=== PATIENT | male | born 1940 | race Caucasian/White ===

== ENCOUNTER 2018-07-13 09:18 | Outpatient (CLI) | payer MEDICARE, SELFPAY ==
[2018-07-13 11:11] LABS: HCT 46.3 % (40.0-50.0); HGB 15.5 g/dL (13.5-17.5); Mean Corp. HGB Concentration 33.5 g/dL (32.0-36.0); Mean Corpuscular Hemoglobin 31.6 pg (27.0-33.0); Mean Corpuscular Volume 94.5 fL (80-95); Mean Platelet Volume 12.2 fL (8.0-11.0); Platelet Count 182 x1000/uL (130-400); RBC Distribution Width 13.4 % (11.8-14.1); White Blood Cell Count 7.55 k/cumm (4.4-10.8)
[2018-07-13 15:15] LABS: ALT 45 U/L (12-78); AST 36 U/L (15-37); Albumin 4.2 g/dL (3.4-5.0); Alkaline Phosphatase 61 U/L (46-116); Anion Gap 10.5 mmol/L (3-11); BUN 24 mg/dL (7-18); Bilirubin, Total 1.2 mg/dL (0.2-1.0); CO2 29.5 mmol/L (21.0-32.0); CREATININE 1.69 mg/dL (0.70-1.30); Calcium 9.3 mg/dL (8.5-10.1); Chloride 103 mmol/L (98-107); Cholesterol 122 mg/dL (50-200); Estimated GFR 39.76 (mL/min/1.73m2); Glucose 62 mg/dL (70-100); HDL Cholesterol 37 mg/dL (40-60); LDL CHOLESTEROL 62 mg/dL (<100); Potassium 4.1 mmol/L (3.5-5.1); Sodium 143 mmol/L (136-145); Total Protein 7.6 g/dL (6.4-8.2); Triglyceride 142 mg/dL (30-150); Vitamin B12 334 pg/mL (193-986)
[2018-07-14 09:36] LABS: PSA, Screening 0.4 ng/ml (0-6.5)
== END 2018-07-13 09:38 ==
PROVIDERS: PCP Family Medicine; Visit Provider Family Medicine
DX: I10 Essential (primary) hypertension (principal); E78.5 Hyperlipidemia, unspecified; R35.1 Nocturia; Z12.5 Encounter for screening for malignant neoplasm of prostate
CPT/HCPCS: 36415; 80053; 80061; 83721; 84153; 85027; 82607

== ENCOUNTER 2019-01-09 01:50 | Outpatient (CLI) | payer MEDICARE, SELFPAY ==
[2019-01-09 07:57] LABS: Abs Immature Grans 0.02 k/cumm (0.0-0.09); Absolute Basophil Count 0.02 k/cumm (0.0-0.2); Absolute Eosinophil Count 0.13 k/cumm (0.0-0.7); Absolute Lymphocyte Count 1.61 k/cumm (1.2-3.4); Basophils % 0.3; Eosinophils % 1.8; HCT 47.9 % (40.0-50.0); HGB 16.2 g/dL (13.5-17.5); Immature Grans % 0.3; Lymphocytes % 22.4; Mean Corp. HGB Concentration 33.8 g/dL (32.0-36.0); Mean Corpuscular Volume 94.5 fL (80-95); Mean Platelet Volume 10.6 fL (8.0-11.0); Monocytes % 12.5; Neutrophils % 62.7; Platelet Count 187 x1000/uL (130-400); RBC 5.07 m/cumm (4.50-6.00); RBC Distribution Width 13.7 % (11.8-14.1); White Blood Cell Count 7.18 k/cumm (4.4-10.8)
[2019-01-09 08:31] LABS: Bilirubin Negative (Negative); Blood Negative (Negative); Clarity Clear; Glucose Negative (Negative); Ketones Negative (Negative); Leukocyte Esterase Trace (Negative); Nitrite Negative (Negative); Specific Gravity 1.015 (1.005-1.025); Urobilinogen 0.2 EU/dL (Up TO 0.2)
[2019-01-09 08:57] LABS: ALT 46 U/L (12-78); AST 44 U/L (15-37); Albumin 4.3 g/dL (3.4-5.0); Alkaline Phosphatase 70 U/L (46-116); Anion Gap 11.9 mmol/L (3-11); BUN 24 mg/dL (7-18); Bilirubin, Total 1.3 mg/dL (0.2-1.0); CO2 30.1 mmol/L (21.0-32.0); CREATININE 1.59 mg/dL (0.70-1.30); Calcium 9.5 mg/dL (8.5-10.1); Chloride 101 mmol/L (98-107); Estimated GFR 42.54 (mL/min/1.73m2); Glucose 53 mg/dL (70-100); Potassium 3.9 mmol/L (3.5-5.1); Sodium 143 mmol/L (136-145); TSH 3.65 uIU/mL (0.358-3.74); Total Protein 7.8 g/dL (6.4-8.2)
[2019-01-09 09:10] LABS: Bacteria Negative HPF (Negative); C & S Indicated? No; Casts Negative LPF (Negative); Crystals Negative HPF (Negative); Epithelial Cells Negative HPF (Negative); Mucus Negative (Negative); RBC 0-2 (0-2)
== END 2019-01-09 02:10 ==
PROVIDERS: PCP Family Medicine; Visit Provider Family Medicine
DX: R53.83 Other fatigue (principal); I10 Essential (primary) hypertension; I48.91 Unspecified atrial fibrillation; K59.00 Constipation, unspecified
CPT/HCPCS: 80053; 81003; 81015; 84443; 85025

== ENCOUNTER 2019-03-06 09:34 | Outpatient (CLI) | payer MEDICARE, SELFPAY ==
--- NOTE | 2019-03-06 13:14 | DI.CT_ITS ---
SYMPTOMS/DIAGNOSIS: FALL ONTO HEAD, ON ELIQUIS, FALL, W19.XXXA CRANIAL CT: Noncontrast cranial CT was performed. There is moderate generalized cerebral atrophy and there are mild patchy areas of decreased attenuation in periventricular white matter bilaterally consistent with microvascular ischemic changes. No evidence of acute intracranial hemorrhage, mass effect or midline shift. There is a question of dilatation of the A 1 segment of anterior cerebral artery vs posterior communicating artery on the left. The findings may just represent tortuous mildly ectatic vessels but aneurysm is not excluded. Correlation with CT Angiography recommended for further evaluation. The orbital and temporal bone structures appear intact. No evidence of acute intracranial hemorrhage, mass effect or midline shift. CONCLUSION: No evidence of acute process. Question left sided [place] of [place] aneurysm, correlation with CTA requested as described above.
--- NOTE | 2019-03-06 13:16 | DI.RAD_ITS ---
SYMPTOMS/DIAGNOSIS: RT HIP PAIN SINCE FALL, ACUTE PAIN, M25.551, W19.XXXA RIGHT HIP AND PELVIS: Three views were obtained. There are mild degenerative changes of both hips. No evidence of acute fracture or dislocation.
== END 2019-03-06 09:54 ==
PROVIDERS: PCP Family Medicine; Visit Provider Nurse Practitioner Family
DX: M25.551 Pain in right hip; W01.0XXA Fall on same level from slipping, tripping and stumbling without subsequent striking against object, initial encounter; Z79.01 Long term (current) use of anticoagulants; R93.0 Abnormal findings on diagnostic imaging of skull and head, not elsewhere classified
CPT/HCPCS: 70450; 73502

== ENCOUNTER 2019-03-07 07:16 | Outpatient (CLI) | payer MEDICARE, SELFPAY ==
[2019-03-07] MEDS: Omnipaque 350 MG/ML 100 ML BTL IJ (08:53)
--- NOTE | 2019-03-07 09:02 | DI.CT_ITS ---
SYMPTOMS/DIAGNOSIS: ABNL HEAD CT, ? ANEURYSM, R93.0 CT ANGIOGRAPHY OF THE HEAD: CT angiography was performed with multi slice acquisition and multi planar and 3D reconstruction. Comparison is made with noncontrast head CT performed the previous day. The basilar artery is tortuous. The distal vertebral arteries are unremarkable. There is no evidence of aneurysm of the left anterior cerebral artery. There is no evidence of occlusion or significant stenosis. IMPRESSION: Mildly tortuous vessels. No evidence of aneurysm or significant stenosis.
== END 2019-03-07 07:36 ==
PROVIDERS: PCP Family Medicine; Visit Provider Family Medicine
DX: R93.0 Abnormal findings on diagnostic imaging of skull and head, not elsewhere classified (principal)
CPT/HCPCS: 70496; J3490

== ENCOUNTER 2019-05-09 07:00 | Outpatient (CLI) | payer MEDICARE, SELFPAY ==
[2019-05-09 13:21] LABS: ALT 42 U/L (16-63); AST 52 U/L (15-37); Albumin 4.1 g/dL (3.4-5.0); Alkaline Phosphatase 89 U/L (46-116); Anion Gap 10.1 mmol/L (3-11); BUN 24 mg/dL (7-18); Bilirubin, Direct 0.28 mg/dL (0.00-0.20); Bilirubin, Total 1.2 mg/dL (0.2-1.0); CO2 29.9 mmol/L (21.0-32.0); CREATININE 2.01 mg/dL (0.70-1.30); Calcium 9.1 mg/dL (8.5-10.1); Chloride 101 mmol/L (98-107); Estimated GFR 32.46 (mL/min/1.73m2); Glucose 51 mg/dL (70-100); Potassium 4.1 mmol/L (3.5-5.1); Sodium 141 mmol/L (136-145); Total Protein 7.4 g/dL (6.4-8.2)
[2019-05-09 13:39] LABS: ESR 8 mm/hr (1-20)
== END 2019-05-09 07:20 ==
PROVIDERS: PCP Family Medicine; Visit Provider Family Medicine
DX: R63.4 Abnormal weight loss (principal); E80.6 Other disorders of bilirubin metabolism
CPT/HCPCS: 36415; 80053; 85652; 82248

== ENCOUNTER 2019-05-24 01:44 | Outpatient (CLI) | payer MEDICARE, SELFPAY ==
--- NOTE | 2019-05-24 07:45 | DI.CT_ITS ---
EXAM: CT ABDOMEN PELVIS WO CLINICAL HISTORY: wt loss,fatigue,hyperbilirubinemia,transaminases,r63.4 TECHNIQUE: Images were performed from the lung bases through the ischial tuberosities without IV and after oral contrast. Exam is mildly limited by respiratory motion. COMPARISON: ABD PELVIS WO CONTRAST from 03/02/2016 RENAL ULTRASOUND(P) from 04/11/2017 XR hip RT complete AP pelvis from 03/06/2019 FINDINGS: The lung bases are clear. The heart is mildly enlarged. There is a small cyst in the liver. There is no biliary dilatation. The gallbladder, spleen, pancreas and adrenals are unremarkable. Multiple bilateral renal cysts are again noted, the largest in the midportion of the right kidney which measu res 13.5 cm. No suspicious masses or hydronephrosis is seen. There are nonobstructing stones at the lower poles of both kidneys, right greater than left. The prostate is mildly enlarged and shows wesley cification. The bladder is unremarkable. There is no bowel dilatation or inflammatory change. Ther e is no gross evidence of a mass. There is no evidence of adenopathy or ascites. The aorta is vitaly l in diameter and is tortuous distally. Iliac arteries are tortuous. There are subacute fractures o f the right inferior and superior pubic rami and right sacral ala. No lower thoracic or lumbar fractu res are seen. IMPRESSION: Subacute fractures of the right superior and inferior pubic rami and right sacrum. Bilateral renal cysts and nonobstructing bilateral renal calculi.
[2019-05-24] MEDS: Omnipaque 350 MG/ML 50 ML BTL PO (07:57)
[2019-05-24] MEDS: Breeza Beverage 473 ML BTL PO (07:58)
== END 2019-05-24 02:04 ==
PROVIDERS: PCP Family Medicine; Visit Provider Family Medicine
DX: R63.4 Abnormal weight loss (principal); R53.83 Other fatigue; N28.1 Cyst of kidney, acquired; N20.0 Calculus of kidney; S32.511A Fracture of superior rim of right pubis, initial encounter for closed fracture; S32.19XA Other fracture of sacrum, initial encounter for closed fracture
CPT/HCPCS: 74176; Q9967

== ENCOUNTER 2019-05-25 00:49 | Outpatient (CLI) | payer MEDICARE, SELFPAY ==
[2019-05-28 11:21] LABS: PSA, Screening 0.5 ng/ml (0-6.5)
[2019-05-28 13:27] LABS: Albumin 60.6 % (55.8-66.1); Total Protein 7.6 g/dl (6.3-8.2)
== END 2019-05-25 01:09 ==
PROVIDERS: PCP Family Medicine; Visit Provider Family Medicine
DX: R55 Syncope and collapse (principal); N40.0 Benign prostatic hyperplasia without lower urinary tract symptoms; Z12.5 Encounter for screening for malignant neoplasm of prostate
CPT/HCPCS: 36415; 84153; 84165

== ENCOUNTER → 2019-06-26 09:18 | Outpatient (BNVA) | payer MEDICARE, SELFPAY | PROVIDERS: PCP Family Medicine; Referring Provider Family Medicine; Visit Provider Student in an Organized Health Care Education/Training Program | DX: S32.10XA Unspecified fracture of sacrum, initial encounter for closed fracture (principal); S32.2XXA Fracture of coccyx, initial encounter for closed fracture; W08.XXXA Fall from other furniture, initial encounter; G20 Parkinson's disease | CPT/HCPCS: 99203 ==

== ENCOUNTER 2020-01-14 22:01 | Outpatient (REF) | payer MEDICARE, SELFPAY ==
[2020-01-14 21:49] LABS: HGB 15.3 g/dL (13.5-17.5); Mean Corpuscular Hemoglobin 32.5 pg (27.0-33.0); Mean Corpuscular Volume 95.5 fL (80-95); Mean Platelet Volume 11.6 fL (8.0-11.0); Platelet Count 177 x1000/uL (130-400); RBC 4.71 m/cumm (4.50-6.00); RBC Distribution Width 12.9 % (11.8-14.1); White Blood Cell Count 8.12 k/cumm (4.4-10.8)
[2020-01-14 22:08] LABS: ALT 37 U/L (16-63); AST 32 U/L (15-37); Albumin 4.3 g/dL (3.4-5.0); Alkaline Phosphatase 59 U/L (46-116); Anion Gap 6.7 mmol/L (3-11); BUN 25 mg/dL (7-18); Bilirubin, Total 1.3 mg/dL (0.2-1.0); CO2 32.3 mmol/L (21.0-32.0); CREATININE 1.55 mg/dL (0.70-1.30); Calcium 9.6 mg/dL (8.5-10.1); Calculated LDL 59 mg/dL (<100); Chloride 104 mmol/L (98-107); Cholesterol 119 mg/dL (<200); Glucose 56 mg/dL (74-106); HDL Cholesterol 37 mg/dL (40-60); Potassium 4.1 mmol/L (3.5-5.1); Sodium 143 mmol/L (136-145); Total Protein 7.5 g/dL (6.4-8.2); Triglyceride 115 mg/dL (<150)
== END 2020-01-14 22:21 ==
LOC: LBN 22:01
PROVIDERS: PCP Family Medicine; Visit Provider Family Medicine
DX: I10 Essential (primary) hypertension (principal); I48.0 Paroxysmal atrial fibrillation; G20 Parkinson's disease
CPT/HCPCS: 80053; 80061; 85027

== ENCOUNTER 2020-03-11 01:06 | Outpatient (CLI) | payer MEDICARE, SELFPAY ==
--- NOTE | 2020-03-11 08:28 | DI.CT_ITS ---
EXAM: CT HEAD WO CLINICAL HISTORY: x 07/2019: severe random top/occipital JORDAN,BLURRED VISION,R51. TECHNIQUE: Imaging Protocol: Axial computed tomography images with coronal and sagittal reformatted images were created and reviewed COMPARISON: No exams were available for comparison FINDINGS: Ventricles and Extra axial spaces: Normal in size and morphology for the patient's age. Hemorrhage: None. Cerebral parenchyma: Atrophy. White matter changes consistent with small vessel disease. Midline shift: None. Brainstem/Cerebellum: Normal. Calvarium: Normal. Visualized Paranasal sinuses/Mastoids: Small mucous retention cyst or polyp in the left maxillary sin us.. IMPRESSION: No acute abnormality. RADIATION DOSE DELIVERED: 805.01mGy.cm Total DLP 805.01mGy.cm Total DLP DATA REPOSITORY: All CT scans at this facility are submitted to the National Radiology Data Registry (NRDR) Dose Index Registry (DIR) with the [employer] (ACR). RADIATION OPTIMIZATION: All CT scans at this facility use at least one of these dose optimization te chniques: automated exposure control; mA and/or kV adjustment per patient size (includes targeted exa ms where dose is matched to clinical indication); or iterative reconstruction.
== END 2020-03-11 01:26 ==
PROVIDERS: PCP Family Medicine; Visit Provider Family Medicine
DX: R51 Headache (principal); H53.8 Other visual disturbances
CPT/HCPCS: 70450

== ENCOUNTER → 2020-04-11 10:05 | Outpatient (BNVA) | payer MEDICARE, SELFPAY | PROVIDERS: PCP Family Medicine; Referring Provider Family Medicine; Visit Provider Internal Medicine Cardiovascular Disease | DX: I48.0 Paroxysmal atrial fibrillation (principal); I12.9 Hypertensive chronic kidney disease with stage 1 through stage 4 chronic kidney disease, or unspecified chronic kidney disease; N18.3 Chronic kidney disease, stage 3 (moderate); G20 Parkinson's disease | CPT/HCPCS: 99204; 99215 ==

== ENCOUNTER 2020-04-24 14:57 | Emergency (ER) | payer MEDICARE, SELFPAY ==
[2020-04-24] VITALS (48 sets, daily range): BP systolic 133–179; BP diastolic 86–133; PULSE 59–140; RESP 16–46; TEMP 36.6–37; O2SAT 94–98
--- NOTE | 2020-04-24 14:45 | DI.CT_ITS ---
EXAM: CT HEAD CERVICAL SPINE WO CLINICAL HISTORY: Fall, on blood thinners, r/o fracture, bleed. TECHNIQUE: Imaging Protocol: Axial computed tomography images with coronal and sagittal reformatted images were created and reviewed COMPARISON: CT CT HEAD WO from 03/11/2020 FINDINGS: Head CT Ventricles and Extra axial spaces: Normal in size and morphology for the patient's age. Hemorrhage: None. Cerebral parenchyma: Stable atrophy and white matter changes of microvascular disease. Midline shift: None. Brainstem/Cerebellum: Normal. Calvarium: Normal. Visualized Paranasal sinuses/Mastoids: Mucous retention cyst versus polyp in the left maxillary sinus . Mucosal thickening of the left ethmoid air cells. Cervical Spine CT BONES: Vertebral body heights are maintained. Alignment is normal. There is a nondisplaced fracture o f the C5 spinous process. No additional acute fractures are seen. There is an apparent old fracture of the C7 spinous process. Degenerative disc changes and facet degenerative changes are seen . SOFT TISSUES: No paraspinal hematoma. The airway appears intact. No pneumothorax is seen at the lung apices. IMPRESSION: Head CT: No acute abnormality. C-spine CT: Nondisplaced fracture of the C5 spinous process. Degenerative changes. Incidental RADIATION DOSE DELIVERED: LINK-TO-SR Total DLP DATA REPOSITORY: All CT scans at this facility are submitted to the National Radiology Data Registry (NRDR) Dose Index Registry (DIR) with the [employer] (ACR). RADIATION OPTIMIZATION: All CT scans at this facility use at least one of these dose optimization te chniques: automated exposure control; mA and/or kV adjustment per patient size (includes targeted exa ms where dose is matched to clinical indication); or iterative reconstruction.
--- NOTE | 2020-04-24 14:59 | ED.GENADUL_ITS ---
Discharge Plan Disposition Patient Disposition: HOME Condition: Stable Discharge Details Clinical Impression: Fall, Head injury, C5 cervical fracture Primary Care Provider: Flavia Kuo ED Provider: Bernard Miller Home Meds and New Rx's Prescriptions: Continued verapamil 180 mg tablet extended release 180 mg PO DAILY Qty: 30 RF: 3 atorvastatin 40 mg tablet 40 mg PO DAILY Qty: 90 RF: 4 carbidopa-levodopa [Sinemet] 25-100 mg tablet 1 tab PO TID RF: 0 hydrochlorothiazide 12.5 mg tablet 12.5 mg PO DAILY Qty: 30 RF: 2 Ocuvite with Lutein 1 EACH tablet 1 ea PO DAILY RF: 0 nitroglycerin 0.4 mg tablet, sublingual 0.4 mg SL Q5M MDD 3 tabs PRN (Reason: chest pain) Qty: 30 RF: 1 Eliquis 5 mg tablet 5 mg PO BID Qty: 60 RF: 11 docusate sodium [Colace] 100 mg capsule 100 mg PO TID Qty: 180 RF: 0 Discharge Instructions Instructions: Head Injury (ED), Cervical Fracture (ED) Additional Instructions: At this time your work-up in the ER revealed a stable, nondisplaced, cervical 5 fracture. Wear the soft collar until your reevaluated by orthopedics, I have placed you on their list and I would like you to reach out to their office tomorrow. [id number] Tylenol as directed for discomfort. Cool and/or warm compresses every 2 hours for 20 minutes. Please watch for new or worsening symptoms and return to the ER for any concerns. Referrals: Marko Butler MD [ [facility] STAFF PHYSICIAN] - Discharge Data Discharge Date/Time-TO BE ENTERED AT DEPARTURE: 04/24/20 20:19 Medical Decision Making <Leti Holcomb - Last Filed: 04/25/20 08:10> 79-year-old male presents with dizziness and inability to raise arms after a fall prior to arrival while raking leaves. Patient was seen at [facility] and was sent over here for further evaluation. He does have a history of Parkinson's disease, atrial fibrillation and is on blood thinners he does take apixaban 5 mg twice a day. Recommendation is for a head CT and neck to rule out hemorrhage and fracture. He does have some cervical radiculopathy. Patient fell forward hitting his glasses he does have a superficial abrasion noted to the left side of his nose. He is only able to abduct his arms bilaterally approximately 45 degrees. He denies having any pain at this time. He is alert and oriented x4. Gross motor is intact to all other extremities. PMhx includes osteoarthritis, hypertension, chronic kidney disease stage III, Parkinson, peripheral neuropathy, hypoglycemia. Initial exam patient is alert and oriented x4 c-collar was placed by staffing analyst on arrival to the department. Patient states that he became dizzy and fell forward hitting his head. He reports some mild soreness to the back of his neck denies any headache or blurry vision. Denies loss of consciousness. Due to patient being on anticoagulants will order head CT and neck CT to rule out fracture or hemorrhage. Cardiac work-up ordered due to dizziness and fall and history of coronary artery disease. Care is to be handed off to oncoming provider ANTONI Hightower pending CT results and labs. <ANTONI Talamantes - Last Filed: 04/24/20 20:42> I received signout this pleasant 79-year-old gentleman from my colleague TIMUR Holcomb. Please see her full HPI and examination. In brief, patient is a DNR, DNI, was outside using a leaf blower this afternoon, became tired and dizzy and fell forward striking his head. Because of the dizziness, which has resolved completely, a cardiac work-up was initiated. C-collar placed upon arrival. CT of head and neck obtained, patient is anticoagulated. On my evaluation patient resting comfortably. He does have an abrasion across his nose, tetanus status checked, last given in 2013, will update now. He is currently pleasant and has no real concerns except that the c-collar is making his neck is sore. Laboratory values reveal a white blood cell count of 12.87 hemoglobin 15.5 hematocrit 45.3 platelet count 211. INR 1.1. Sodium 137 potassium 3.4, creatinine 1.38, GFR 49.96. Glucose 6.7. Initial troponin less than 0.01. TSH 1.78. Patient given a amp of glucose as well as 1 L IV fluid. Urinalysis shows trace blood otherwise unremarkable. It was brought to my attention that the patient's blood pressure was trending upward. On the potline monitor he now appears to have a rhythm in the 120s and 30s. Repeat EKG obtained. Please see official EKG by Dr. Castellon. Appears to be a sinus or ectopic atrial tachycardia, ventricular of 125. Patient with a history of known A. fib, does take diltiazem. Was planning to give a dose of IV diltiazem however this rhythm broke without intervention and per potline monitor was in A. fib with a ventricular rate 80s. CT of head read by radiology as no acute intracranial abnormality. CT of C- spine read as a nondisplaced fracture of the left C5 spinous process. Per radiology verbally, this is stable. Given patient was not complaining of any true neck discomfort and had a C5 fracture, I do believe obtaining a CT of his chest, abdomen, pelvis is reasonable. He did go from a ventricular rate in the 80s up to the 130s without really any stimulus. I did discuss this with Dr. Castellon. CT imaging of chest, abdomen, pelvis reveals no acute findings of the chest, abdomen and pelvis left nonobstructing renal calculi. Bilateral hypoattenuating renal lesions, all lesions are stable since the previous examination. I discussed the C [address] Castellon. The fracture is nondisplaced, stable, and patient is neurologically intact. [place] as though placing a soft collar and outpatient orthopedic follow-up was appropriate. Soft collar in place. Patient was placed on the orthopedic list. I was able to speak with the patient's [id number] on the phone. Discussed patient's work-up, repeat troponin is pending. We discussed the cervical fracture, soft collar, and overall disposition. Patient states that he would rather go home if at all possible. She feels as though the patient is safe to go home in his current condition, has Parkinson's, does have multiple falls in general. Blood pressure has trended down nicely while the patient is here. While he is awaiting the repeat troponin patient was trial ambulated throughout the ER, given p.o. food and liquids. He was able to tolerate p.o. without difficulty. He ambulated steadily without assistance. Patient feels well and continues to wish to be discharged. Repeat troponin remains less than 0.05. Patient understands to wear his c-collar, will contact the orthopedic group tomorrow for prompt outpatient reevaluation. He was encouraged to return to the ER for new or worsening symptoms. At time of discharge patient has no additional questions or concerns. Medical Records Medical records reviewed: Yes I reviewed the patient's medical records. Lab Data Lab results reviewed: Yes I reviewed the patient's lab results. Lab results narrative: Laboratory Tests Range/Units 04/24/20 04/24/20 04/24/20 15:25 15:25 15:25 WBC (4.4-10.8) 10^3/uL 12.87 H RBC (4.36-5.78) 10^6/uL 4.78 Hgb (13.5-17.5) g/dL 15.5 Hct (40.0-50.0) % 45.3 MCV (80-95) fL 94.8 MCH (27.0-33.0) pg 32.4 MCHC (32.0-36.0) % 34.2 RDW (11.8-14.1) % 12.9 Plt Count (130-400) 10^3/uL 211 MPV (8.0-11.0) fL 10.1 Immature Gran % 0.4 Neutrophils % 85.3 Lymphocytes % 6.8 Monocytes % 7.1 Eosinophils % 0.2 Basophils % 0.2 Nucleated RBC % % 0 Absolute Neutrophils (1.2-6.7) 10^3/uL 10.98 H Absolute Lymphocytes (1.2-3.4) 10^3/uL 0.88 L Absolute Monocytes (0.1-0.8) 10^3/uL 0.91 H Absolute Eosinophils (0.0-0.7) 10^3/uL 0.03 Absolute Basophils (0.0-0.2) 10^3/uL 0.03 PT (9.3-11.0) sec 11.1 H INR (0.9-1.1) 1.1 Sodium (136-145) mmol/L 137 Potassium (3.5-5.1) mmol/L 3.4 L Chloride (98-107) mmol/L 101 Carbon Dioxide (21.0-32.0) mmol/L 27.8 Anion Gap (3-11) mmol/L 8.2 BUN (7-18) mg/dL 21 H Creatinine (0.70-1.30) mg/dL 1.38 H Estimated GFR/1.73 m2 (mL/min/1.73m2) 49.96 Glucose (74-106) mg/dL 67 L Calcium (8.5-10.1) mg/dL 9.6 Magnesium (1.8-2.4) mg/dL 2.2 Total Bilirubin (0.2-1.0) mg/dL 1.0 AST (15-37) U/L 40 H ALT (16-63) U/L 20 Alkaline Phosphatase (46-116) U/L 96 Troponin I (<0.06) ng/mL < 0.05 Total Protein (6.4-8.2) g/dL 7.8 Albumin (3.4-5.0) g/dL 4.3 TSH (0.36-3.74) uIU/mL Urine Color (Yellow) Urine Clarity (Clear) Urine pH (5-8) Ur Specific [place] (1.005-1.025) Urine Protein (Negative) mg/dL Urine Ketones (Negative) mg/dL Urine Blood (Negative) Urine Nitrite (Negative) Urine Bilirubin (Negative) Urine Urobilinogen (Up TO 0.2) EU/dL Ur Leukocyte Esterase (Negative) Urine RBC (0-2) HPF Urine WBC (0-5) HPF Ur Epithelial Cells (Negative) HPF Urine Crystals (Negative) HPF Urine Bacteria (Negative) HPF Urine Casts (Negative) LPF Urine Mucus (Negative) Urine Other (Negative) Ur Culture Indicated? Urine Glucose (Negative) mg/dL Range/Units 04/24/20 04/24/20 04/24/20 17:00 17:07 18:50 WBC (4.4-10.8) 10^3/uL RBC (4.36-5.78) 10^6/uL Hgb (13.5-17.5) g/dL Hct (40.0-50.0) % MCV (80-95) fL MCH (27.0-33.0) pg MCHC (32.0-36.0) % RDW (11.8-14.1) % Plt Count (130-400) 10^3/uL MPV (8.0-11.0) fL Immature Gran % Neutrophils % Lymphocytes % Monocytes % Eosinophils % Basophils % Nucleated RBC % % Absolute Neutrophils (1.2-6.7) 10^3/uL Absolute Lymphocytes (1.2-3.4) 10^3/uL Absolute Monocytes (0.1-0.8) 10^3/uL Absolute Eosinophils (0.0-0.7) 10^3/uL Absolute Basophils (0.0-0.2) 10^3/uL PT (9.3-11.0) sec INR (0.9-1.1) Sodium (136-145) mmol/L Potassium (3.5-5.1) mmol/L Chloride (98-107) mmol/L Carbon Dioxide (21.0-32.0) mmol/L Anion Gap (3-11) mmol/L BUN (7-18) mg/dL Creatinine (0.70-1.30) mg/dL Estimated GFR/1.73 m2 (mL/min/1.73m2) Glucose (74-106) mg/dL Calcium (8.5-10.1) mg/dL Magnesium (1.8-2.4) mg/dL Total Bilirubin (0.2-1.0) mg/dL AST (15-37) U/L ALT (16-63) U/L Alkaline Phosphatase (46-116) U/L Troponin I (<0.06) ng/mL < 0.05 Total Protein (6.4-8.2) g/dL Albumin (3.4-5.0) g/dL TSH (0.36-3.74) uIU/mL 1.78 Urine Color (Yellow) Yellow Urine Clarity (Clear) Clear Urine pH (5-8) 7.0 Ur Specific [place] (1.005-1.025) 1.020 Urine Protein (Negative) mg/dL Negative Urine Ketones (Negative) mg/dL Negative Urine Blood (Negative) Trace-intact H Urine Nitrite (Negative) Negative Urine Bilirubin (Negative) Negative Urine Urobilinogen (Up TO 0.2) EU/dL 0.2 Ur Leukocyte Esterase (Negative) Negative Urine RBC (0-2) HPF Negative Urine WBC (0-5) HPF Negative Ur Epithelial Cells (Negative) HPF Negative Urine Crystals (Negative) HPF Negative Urine Bacteria (Negative) HPF Negative Urine Casts (Negative) LPF Negative Urine Mucus (Negative) Negative Urine Other (Negative) Negative Ur Culture Indicated? No Urine Glucose (Negative) mg/dL Negative ECG Data Attestation: I personally reviewed and interpreted this ECG (s) as follows: Interpretation: Please see official report by Dr. Castellon. Atrial fibrillation, ventricular rate of 83. HPI <Leti Holcomb - Last Filed: 04/25/20 08:10> General Mode of arrival: ambulatory . Date/Time Provider Initiated Documentation: 04/24/20 14:58 . Limitations to Documentation: no limitations . Information obtained by: patient and RN/MD . HPI Narrative: 79-year-old male presents with dizziness and inability to raise arms after a fall prior to arrival while raking leaves. Patient was seen at [facility] and was sent over here for further evaluation. He does have a history of Parkinson's disease, atrial fibrillation and is on blood thinners he does take apixaban 5 mg twice a day. Recommendation is for a head CT and neck to rule out hemorrhage and fracture. He does have some cervical radiculopathy. Patient fell forward hitting his glasses he does have a superficial abrasion noted to the left side of his nose. He is only able to abduct his arms bilaterally approximately 45 degrees. He denies having any pain at this time. He is alert and oriented x4. Gross motor is intact to all other extremities. PMhx includes osteoarthritis, hypertension, chronic kidney disease stage III, Parkinson, peripheral neuropathy, hypoglycemia. Related Data Home Medications Medication Instructions Recorded Confirmed Ocuvite with Lutein 1 ea PO DAILY 10/19/12 04/24/20 nitroglycerin 0.4 mg sublingual 0.4 mg SL Q5M PRN #30 tab MDD 3 07/20/19 04/24/20 tablet tabs atorvastatin 40 mg tablet 40 mg PO DAILY #90 tab-cap 01/14/20 04/24/20 verapamil 180 mg tablet,extended 180 mg PO DAILY #30 tab 01/14/20 04/24/20 release apixaban 5 mg tablet 5 mg PO BID #60 tab-cap 02/05/20 04/24/20 hydrochlorothiazide 12.5 mg tablet 12.5 mg PO DAILY #30 tab 02/13/20 04/24/20 carbidopa 25 mg-levodopa 100 mg 1 tab PO TID 03/17/20 04/24/20 tablet docusate sodium 100 mg capsule 100 mg PO TID #180 tab-cap 04/09/20 04/24/20 Previous Rx's Medication Instructions Recorded nitroglycerin 0.4 mg sublingual 0.4 mg SL Q5M PRN #30 tab MDD 3 07/20/19 tablet tabs atorvastatin 40 mg tablet 40 mg PO DAILY #90 tab-cap 01/14/20 verapamil 180 mg tablet,extended 180 mg PO DAILY #30 tab 01/14/20 release apixaban 5 mg tablet 5 mg PO BID #60 tab-cap 02/05/20 hydrochlorothiazide 12.5 mg tablet 12.5 mg PO DAILY #30 tab 02/13/20 docusate sodium 100 mg capsule 100 mg PO TID #180 tab-cap 04/09/20 Allergies Allergy/AdvReac Type Severity Reaction Status Date / Time No Known Allergies Allergy Verified 04/24/20 14:21 Review of Systems <Leti Holcomb - Last Filed: 04/25/20 08:10> Narrative: Constitutional: Negative for weight loss, alert and oriented, well groomed, normal body habitus, appears comfortable. HEENT: Denies headaches, blurry vision, nasal discharge, sore throat, trouble swallowing. Chest: Denies chest pain, palpitations, irregular rhythm, hypertension. Respiratory: Denies Shortness of breath, cough, hemoptysis. GI: Denies abdominal pain, nausea, vomiting, diarrhea, constipation. : Denies dysuria, hematuria, flank pain, rectal bleeding. Neuro: Denies dizziness, blurry vision, weakness, syncope, headache or facial numbness. He is unable to raise his arms above 45 degrees. He is on blood thinners did have a fall at around 1230 hitting his head and neck. Hematologic: Denies intolerance to heat or cold, hair loss. PFSH <Leti Holcomb - Last Filed: 04/25/20 08:10> Medical History CKD (chronic kidney disease), stage III (02/19/16) [facility] [place] 04-30-2016: / [place] 6 months DNI (do not intubate) DNR (do not resuscitate) Essential hypertension (04/24/13) Hearing loss Low back pain Nephrolithiasis (03/04/16) non obstructing - on abd/pelvic CT [id number]:asymptomatic : renal U/S: neprholithiasis/ stable cysts Obstructive sleep apnea (02/19/16) sleep study : pt no longer using CPAP Osteoarthritis Parkinsonism Paroxysmal atrial fibrillation (02/19/16) on chronic anticoagulation Peripheral neuropathy POLST (Physician Orders for Life-Sustaining Treatment) Family History Mother , age 83 Heart disease Father , age 83 Heart disease Social History Smoking/Tobacco Use Status: Never Alcohol Intake: current Alcohol Intake frequency: a few times a month Drug use: Never Substance use type: does not use Adopted: No Caregiver/Support person: No Household members: spouse Communication Needs: None Pets and animals: No Sexually active: No Do you think of yourself as: straight/heterosexual Current gender identity: male What is your relationship status?: refused to answer How often do you talk on the phone with friends or family?: decline to answer How often do you get together with friends or relatives?: decline to answer How often do you attend christianity or presybeterian services?: decline to answer Do you belong to any clubs or organized social groups?: decline to answer Panel score (0-1 are the most socially isolated patients): 0 What type of physical activity do you participate in: walking and decline to answer Duration: decline to answer Frequency: decline to answer Elyse/Rastafarian: Protestant Special elyse needs: No Seatbelt use: always Helmet use: Yes Helmet use: always Drive intox or ride w/intox entry driver operator: No Exam <Leti Holcomb - Last Filed: 04/25/20 08:10> Narrative Exam Narrative: Constitutional: Alert and oriented x3. Appears stated age. Normal body habitus. Patient placed in a c-collar upon arrival. Head: Normocephalic. He has a small abrasion superficial noted to the left side of his nose. Bleeding is controlled upon arrival. Eyes: Pupils PERRLA, Red reflex noted, EOM's intact. Eyelids symmetrical without lesions, discharge, or swelling. ENT: Bilateral TM's WNL, External ear normal to inspection, no mastoid TTP, swelling, or erythema, Nasal turbinates WNL, no nasal discharge. Normal dentition, Posterior pharynx WNL, no exudate. Chest: RRR, Normal S1, S2, distal pulses intact. Resp: Lungs clear to auscultation bilaterally, no wheezes, rales, or rhonchi. Musculoskeletal: Normal gait, 5/5 strength to all four extremities. Skin: No suspicious rashes or lesions. Capillary refill less than 2 sec. Neurologic: Cranial nerves II-XII intact. Alert and oriented x 3. DTR's intact. He is unable to raise his arms past 45 degrees on exam. He has mild amount of tremor noted to his upper and lower extremities. Hematologic/Lymphatic: No ecchymosis, no lymphadenopathy. Sign Out <Leti Holcomb - Last Filed: 04/25/20 08:10> Sign Out Data: Sign Out Comment: Pending Labs and CT result. Last updated by Leti Holcomb at 04/24/20 16:07
--- NOTE | 2020-04-24 15:15 | RT.EKG_ITS ---
APPROVED REPORT Exam: Resting ECG Patient Location: E HR:83 bpm ECG Measurements Heart Rate 83 AXIS SC [id number] P [id number] QRSd 94 QRS -35 QT 387 T 92 QTc 456 Conclusion Atrial fibrillation...? atrial activity Left axis deviation...QRS axis (-30,-90)
--- NOTE | 2020-04-24 15:15 | RT.EKG_ITS ---
APPROVED REPORT Exam: Resting ECG Patient Location: E HR:125 bpm ECG Measurements Heart Rate 125 AXIS [place] 137 P -85 QRSd 88 QRS -45 QT 340 T 99 QTc 491 Conclusion Sinus or ectopic atrial tachycardia...P axis (-45,135), rate> 99 Inferior infarct, old...Q >35mS, II III aVF Repol abnrm suggests ischemia, diffuse leads...ST-T neg, ant/lat/inf suspect flutter
[2020-04-24 15:33] LABS: Abs Immature Grans 0.05 10^3/uL (0.0-0.06); Absolute Basophil Count 0.03 10^3/uL (0.0-0.2); Absolute Eosinophil Count 0.03 10^3/uL (0.0-0.7); Absolute Lymphocyte Count 0.88 10^3/uL (1.2-3.4); Basophils % 0.2; Eosinophils % 0.2; HCT 45.3 % (40.0-50.0); HGB 15.5 g/dL (13.5-17.5); Immature Grans % 0.4; Lymphocytes % 6.8; MCH 32.4 pg (27.0-33.0); MCHC 34.2 % (32.0-36.0); MCV 94.8 fL (80-95); MPV 10.1 fL (8.0-11.0); Monocytes % 7.1; Neutrophils % 85.3; Nucleated RBC 0 %; Platelet Count 211 10^3/uL (130-400); RBC 4.78 10^6/uL (4.36-5.78); RDW 12.9 % (11.8-14.1); RDW-SD 45.1 fL; WBC 12.87 10^3/uL (4.4-10.8)
[2020-04-24 15:46] LABS: Absolute Monocyte Count 0.91 10^3/uL (0.1-0.8); Absolute Neutrophil Count 10.98 10^3/uL (1.2-6.7)
[2020-04-24 15:53] LABS: INR 1.1 (0.9-1.1); Prothrombin Time 11.1 sec (9.3-11.0)
[2020-04-24 16:04] LABS: ALT 20 U/L (16-63); AST 40 U/L (15-37); Albumin 4.3 g/dL (3.4-5.0); Alkaline Phosphatase 96 U/L (46-116); Anion Gap 8.2 mmol/L (3-11); BUN 21 mg/dL (7-18); CO2 27.8 mmol/L (21.0-32.0); CREATININE 1.38 mg/dL (0.70-1.30); Calcium 9.6 mg/dL (8.5-10.1); Chloride 101 mmol/L (98-107); Estimated GFR 49.96 (mL/min/1.73m2); Glucose 67 mg/dL (74-106); Magnesium 2.2 mg/dL (1.8-2.4); Potassium 3.4 mmol/L (3.5-5.1); Sodium 137 mmol/L (136-145); Total Protein 7.8 g/dL (6.4-8.2)
[2020-04-24 16:08] LABS: Troponin I < 0.05 ng/mL (<0.06)
--- NOTE | 2020-04-24 16:40 | DI.VRAD_ITS ---
Addendum created by Khadijah Gonzalez MD on 04/24/2020 4:41:06 PM EDT: THIS REPORT CONTAINS FINDINGS THAT MAY BE CRITICAL TO PATIENT CARE. The findings were verbally communicated by me via telephone conference with ANTONI Miller at 4:40 PM EDT on 04/24/2020. The findings were acknowledged and understood. Initial report created on 04/24/2020 4:40:43 PM EDT: PROCEDURE INFORMATION: Exam: CT Head Without Contrast Exam date and time: 04/24/2020 3:59 PM Age: 79 years old Clinical indication: Injury or trauma; Blunt trauma (contusions or hematomas); Patient HX: Fall, on thinners; Additional info: R/O fracture/bleed TECHNIQUE: Imaging protocol: Computed tomography of the head without contrast. COMPARISON: CT HEAD WO 03/11/2020 8:27 AM FINDINGS: Brain: No intracranial hemorrhage. Moderate periventricular and subcortical white matter hypoattenuation, nonspecific but consistent with chronic microvascular ischemic disease. No mass or midline. No extra-axial collections. Normal rutherford-white differentiation. No large acute territorial infarct. Cerebral ventricles: The ventricles are normal in position and mildly enlarged. There is commensurate cortical sulcal prominence. The findings are consistent with age appropriate cerebral atrophy. No hydrocephalus. Bones/joints: No acute fracture. No focal osseous lesions. Paranasal sinuses: Mucous retention cyst or polyp in the LEFT maxillary sinus. Mucoperiosteal thickening LEFT posterior ethmoid air cells. No air-fluid levels. Mastoid air cells: The tympanomastoid air cells are normally aerated as visualized. Orbits: The [place] lenses are absent. The orbits are otherwise unremarkable as visualized. Vasculature: Intracranial arterial calcification is present. Soft tissues: The soft tissues are unremarkable. IMPRESSION: 1. No acute intracranial abnormality. 2. Additional incidental/nonemergent findings as discussed above. 3. No significant interval change. PROCEDURE INFORMATION: Exam: CT Cervical Spine Without Contrast Exam date and time: 04/24/2020 3:59 PM Age: 79 years old Clinical indication: Injury or trauma; Blunt trauma (contusions or hematomas); Patient HX: Fall, on thinners; Additional info: R/O fracture/bleed TECHNIQUE: Imaging protocol: Computed tomography images of the cervical spine without contrast. COMPARISON: CT HEAD WO 03/11/2020 8:27 AM FINDINGS: Vertebrae: There is preservation of the cervical lordosis. There is minimal anterolisthesis of C7 upon T1. There is mild levoscoliosis of the lower cervical spine. There is a nondisplaced fracture of the C5 spinous process (series 14, image 36 and series 11, image 40). Well corticated os ossific density posterior to the C7 spinous represents result of remote avulsion fracture versus degenerative change. The vertebrae are normal in height. Discs/Spinal canal/Neural foramina: Multilevel degenerative changes from C3-C4 through C6-C7. Disc-osteophyte complexes, uncovertebral spurring, arthropathy are multiple levels, resulting mild LEFT foraminal stenosis at C2-C3, moderate bilateral foraminal stenosis-C4, C4-C5, C5-C6, and C6-C7. No significant central canal stenosis. Soft tissues: Soft tissues are unremarkable. Thyroid: Thyroid gland unremarkable as visualized. Lungs: Lung apices unremarkable. Vasculature: Calcification of the carotid arteries. IMPRESSION: 1. Nondisplaced fracture of LEFT C5 spinous process. 2. Multilevel degenerative of the cervical spine foraminal stenosis as discussed. Dictated and Authenticated by: Khadijah Gonazlez MD. Ordering:ANT Landeros MD
--- NOTE | 2020-04-24 16:45 | DI.CT_ITS ---
EXAM: CT CHEST/ABD/PEL W CLINICAL HISTORY: trauma, fall, now afib, htn, c5 fx. TECHNIQUE: Imaging Protocol: Axial computed tomography images with coronal and sagittal reformatted images were created and reviewed CONTRAST MATERIAL: Intravenous: Omnipaque 350 Contrast volume 100 ml Oral: / no COMPARISON: CT CT ABDOMEN PELVIS WO from 05/24/2019 FINDINGS: CHEST: Thyroid: Unremarkable Tracheobronchial tree: Patent where visualized. Mediastinum and [place]: No dominant adenopathy or fluid collection. Pulmonary parenchyma: No consolidation or dominant measurable mass. Mild scarring right middle lobe and posterior right lower lobe. Pleura: No effusion or pneumothorax. Lymph nodes: Within normal limits. Aorta: Thoracic portion non-dilated. Mild atherosclerotic changes. Heart: Normal size. Coronary artery calcifications are seen. No pericardial effusion. Bones: No acute fracture. Degenerative disc changes. ABDOMEN: Liver: Normal density. No measurable mass. Gallbladder and biliary tract: No radiodense calculus or dilation. Pancreas: Normal density, no abnormal calcifications or inflammatory process. Spleen: Normal. Kidneys: Normal size, contour and axis. Large bilateral renal cysts at the upper poles, right greate r than left. Other smaller renal cysts. Stones are again seen at the lower pole of the left kidney. There is no hydronephrosis. No masses seen. Adrenal glands: No masses seen. Aorta: Abdominal portion non-dilated. Atherosclerotic changes. Stable mild dilatation of the bilater al common iliac arteries. Lymph nodes: Within normal limits. PELVIS: Bladder: Symmetric distention, no gross wall thickening. Normal appendix. Bowel: No obstruction or bowel wall thickening. Peritoneal cavity: No ascites, collection or mesenteric inflammatory response. Bones: Degenerative changes. No fractures. Reproductive organs: Calcifications within the prostate. IMPRESSION: No acute abnormality in the chest, abdomen or pelvis. Incidental findings as mentioned above. RADIATION DOSE DELIVERED: 1,237.5mGy.cm Total DLP DATA REPOSITORY: All CT scans at this facility are submitted to the National Radiology Data Registry (NRDR) Dose Index Registry (DIR) with the [employer] ([employer]). RADIATION OPTIMIZATION: All CT scans at this facility use at least one of these dose optimization te chniques: automated exposure control; mA and/or kV adjustment per patient size (includes targeted exa ms where dose is matched to clinical indication); or iterative reconstruction.
[2020-04-24] MEDS: Normal Saline 1,000 ML 1000 ML IV (17:07)
[2020-04-24] MEDS: Dextrose 50%-Water 25 GM/50 ML SYR IVP (17:07)
[2020-04-24] MEDS: Normal Saline Flush 10 ML SYR IVP (17:07)
[2020-04-24 17:16] LABS: Bilirubin Negative (Negative); Blood Trace-intact (Negative); Clarity Clear (Clear); Glucose Negative (Negative); Ketones Negative (Negative); Leukocyte Esterase Negative (Negative); Nitrite Negative (Negative); Urobilinogen 0.2 EU/dL (Up TO 0.2)
[2020-04-24] MEDS: Omnipaque 350 MG/ML 100 ML BTL IJ (17:20)
[2020-04-24] MEDS: Normal Saline - Diluent 50 ML VIAL IV (17:20)
[2020-04-24 17:23] LABS: TSH (W/Ref FT4) 1.78 uIU/mL (0.36-3.74)
[2020-04-24 17:25] LABS: Bacteria Negative HPF (Negative); C & S Indicated? No; Casts Negative LPF (Negative); Crystals Negative HPF (Negative); Epithelial Cells Negative HPF (Negative); Mucus Negative (Negative); Other Cells Negative (Negative); RBC Negative HPF (0-2); WBC Negative HPF (0-5)
--- NOTE | 2020-04-24 18:15 | DI.VRAD_ITS ---
PROCEDURE INFORMATION: Exam: CT Chest With Contrast Exam date and time: 04/24/2020 5:22 PM Age: 79 years old Clinical indication: Injury or trauma; Fall; Generalized; Blunt trauma (contusions or hematomas); Injury date: 04/24/20 TECHNIQUE: Imaging protocol: Computed tomography of the chest with intravenous contrast. Radiation optimization: All CT scans at this facility use at least one of these dose optimization techniques: automated exposure control; mA and/or kV adjustment per patient size (includes targeted exams where dose is matched to clinical indication); or iterative reconstruction. Contrast material: OMNIPAQUE 350; Contrast route: INTRAVENOUS (IV); COMPARISON: CT ABDOMEN PELVIS WO 05/24/2019 8:35 AM FINDINGS: Thyroid: Thyroid gland unremarkable visualized Lungs: Minimal scarring in the RIGHT middle lobe and the posterior basal segment RIGHT lobe. No focal consolidation. Pleural space: There is no evidence of pleural effusion or pneumothorax. Heart: The heart is normal in size. There is no evidence of pericardial effusion. Coronary artery calcification. Aorta: Mild atherosclerotic calcification of the thoracic aorta. No aneurysmal dilatation. Other arteries: Arteries are normal in caliber. Lymph nodes: No lymphadenopathy. Bones/joints: Unremarkable. No acute fracture. Soft tissues: The soft tissues are unremarkable. IMPRESSION: No acute findings. PROCEDURE INFORMATION: Exam: CT Abdomen And Pelvis With Contrast Exam date and time: 04/24/2020 5:22 PM Age: 79 years old Clinical indication: Injury or trauma; Fall; Generalized; Blunt trauma (contusions or hematomas); Injury date: 04/24/20 TECHNIQUE: Imaging protocol: Computed tomography of the abdomen and pelvis with intravenous contrast. Radiation optimization: All CT scans at this facility use at least one of these dose optimization techniques: automated exposure control; mA and/or kV adjustment per patient size (includes targeted exams where dose is matched to clinical indication); or iterative reconstruction. Contrast material: OMNIPAQUE 350; Contrast volume: 100 ml; Contrast route: INTRAVENOUS (IV); COMPARISON: CT ABDOMEN PELVIS WO 05/24/2019 8:35 AM FINDINGS: Mediastinal space: Hiatus hernia. Is unchanged. Liver: The liver is normal in size and density. The hepatic contour is normal. T well-circumscribed 3.4 cm hypoattenuating in the RIGHT lobe liver. Previously this measured 2.4 cm. No other focal hepatic mass. No enhancement of. Gallbladder and bile ducts: The gall bladder is normal in size. There is no gall bladder wall thickening. There are no gallstones or pericholecystic collection. The common duct and intrahepatic ducts are normal in caliber. Pancreas: The pancreas is normal in size and density. There are no pancreatic calcifications or ductal dilatation. No peripancreatic inflammatory change. Spleen: The spleen is normal in size. No focal splenic lesions are noted. Adrenals: Normal. No mass. Kidneys and ureters: No hydronephrosis. LEFT nonobstructing renal calculi, largest of which is located mid to lower pole of LEFT kidney measuring 8 mm. There are bilateral hypoattenuating well-circumscribed renal lesions. The largest RIGHT renal lesion measures to 13 cm and is homogeneous and hypoattenuating with mild lateral peripheral calcification. Other lesions in RIGHT kidney are also well circumscribed measuring 2.1 cm. Largest lesion is the upper, well circumscribed without calcification or septation measuring 6.0 cm. There is no significant perinephric stranding. Stomach and bowel: Unremarkable. No obstruction. No mucosal thickening. Appendix: No significant lymphadenopathy.The appendix is visualized and is normal in caliber. There is no periappendiceal fat stranding. Intraperitoneal space: There is no evidence of free intraperitoneal air. There is no abdominal or pelvic ascites. Vasculature: Atherosclerotic calcification of the nonaneurysmal abdominal aorta. Common iliac arteries are mildly dilated measuring 1.5 cm on the LEFT and 1.4 cm on the RIGHT . Lymph nodes: No lymphadenopathy. Urinary bladder: The bladder is normally distended. There is no bladder wall thickening. There are no radioopaque bladder calculi. Reproductive: Extensive calcification of gland particularly posterolaterally on. Prostate gland is not enlarged. Seminal vesicles are unremarkable. Bones/joints: No acute osseous findings. Soft tissues: The soft tissues are unremarkable. IMPRESSION: 1. LEFT nonobstructing renal calculi. 2. Bilateral hypoattenuating renal lesions. The largest is located in the RIGHT kidney measuring up to 13 cm with peripheral calcification. All of the lesions are stable since the previous exam. 3. Additional incidental/nonemergent findings as discussed above. Dictated and Authenticated by: Khadijah Gonzalez MD. Ordering:CINDI Wagner MD
[2020-04-24 19:22] LABS: Troponin I < 0.05 ng/mL (<0.06)
== END 2020-04-24 20:19 | disposition home or self-care (01) ==
PROVIDERS: Registered Nurse Emergency; Emergency Provider Physician Assistant; PCP Family Medicine
DX: S12.491A Other nondisplaced fracture of fifth cervical vertebra, initial encounter for closed fracture (principal); S09.90XA Unspecified injury of head, initial encounter; S00.31XA Abrasion of nose, initial encounter; W18.39XA Other fall on same level, initial encounter; Y93.H2 Activity, gardening and landscaping; I48.0 Paroxysmal atrial fibrillation; Z79.01 Long term (current) use of anticoagulants; G20 Parkinson's disease; I12.9 Hypertensive chronic kidney disease with stage 1 through stage 4 chronic kidney disease, or unspecified chronic kidney disease; N18.30 Chronic kidney disease, stage 3 unspecified
CPT/HCPCS: 36415; 36416; 74177; 80053; 82962; 90471; 93005; 96360; 96374; 99285; 70450; 71260; 72125; 81003; 81015; 83735; 84443; 84484; 85025; 85610; 93010; J3490; L0120

== ENCOUNTER → 2020-05-07 08:28 | Outpatient (BNVA) | payer MEDICARE, SELFPAY | PROVIDERS: PCP Family Medicine; Referring Provider Student in an Organized Health Care Education/Training Program; Visit Provider Orthopaedic Surgery | DX: M54.12 Radiculopathy, cervical region (principal); I12.9 Hypertensive chronic kidney disease with stage 1 through stage 4 chronic kidney disease, or unspecified chronic kidney disease; N18.30 Chronic kidney disease, stage 3 unspecified; G20 Parkinson's disease | CPT/HCPCS: 99201; 99213 ==

== ENCOUNTER → 2020-06-18 08:51 | Outpatient (BNVA) | payer MEDICARE, SELFPAY | PROVIDERS: PCP Family Medicine; Referring Provider Family Medicine; Visit Provider Orthopaedic Surgery | DX: M54.12 Radiculopathy, cervical region (principal); G20 Parkinson's disease; I12.9 Hypertensive chronic kidney disease with stage 1 through stage 4 chronic kidney disease, or unspecified chronic kidney disease; N18.30 Chronic kidney disease, stage 3 unspecified | CPT/HCPCS: 99213 ==

== ENCOUNTER → 2020-09-15 09:11 | Outpatient (BNVA) | payer MEDICARE, SELFPAY | PROVIDERS: PCP Family Medicine; Referring Provider Family Medicine; Visit Provider Student in an Organized Health Care Education/Training Program | DX: M54.12 Radiculopathy, cervical region (principal); G20 Parkinson's disease | CPT/HCPCS: 99213 ==

== ENCOUNTER 2021-01-21 03:30 | Outpatient (CLI) | payer MEDICARE, SELFPAY ==
[2021-01-21 09:50] LABS: HCT 45.4 % (40.0-50.0); MCH 32.1 pg (27.0-33.0); MPV 10.8 fL (8.0-11.0); Platelet Count 191 10^3/uL (130-400); RBC 4.68 10^6/uL (4.36-5.78); RDW 12.9 % (11.8-14.1); RDW-SD 46.2 fL; WBC 7.59 10^3/uL (4.4-10.8)
[2021-01-21 10:29] LABS: ALT 14 U/L (16-63); AST 33 U/L (15-37); Albumin 4.2 g/dL (3.4-5.0); Alkaline Phosphatase 61 U/L (46-116); Anion Gap 7.6 mmol/L (3-11); BUN 30 mg/dL (7-18); Bilirubin, Total 1.3 mg/dL (0.2-1.0); CO2 31.4 mmol/L (21.0-32.0); CREATININE 1.6 mg/dL (0.70-1.30); Calcium 9.2 mg/dL (8.5-10.1); Chloride 104 mmol/L (98-107); Estimated GFR 42.01 (mL/min/1.73m2); Potassium 3.5 mmol/L (3.5-5.1); Sodium 143 mmol/L (136-145); Total Protein 7.5 g/dL (6.4-8.2)
[2021-01-21 10:44] LABS: Glucose 43 mg/dL (74-106)
[2021-01-21 15:45] LABS: Hemoglobin A1C 4.3 % (<5.7)
== END 2021-01-21 03:31 | disposition home or self-care (01) ==
LOC: LBO 03:31
PROVIDERS: PCP Family Medicine; Visit Provider Family Medicine
DX: E16.2 Hypoglycemia, unspecified (principal); I10 Essential (primary) hypertension; I48.0 Paroxysmal atrial fibrillation
CPT/HCPCS: 36415; 80053; 85027; 83036

== ENCOUNTER 2021-07-07 13:46 | Outpatient (REF) | payer MEDICARE, SELFPAY ==
[2021-07-07 18:39] LABS: HCT 44.4 % (40.0-50.0); HGB 14.7 g/dL (13.5-17.5); MCH 31.9 pg (27.0-33.0); MCHC 33.1 % (32.0-36.0); MCV 96.3 fL (80-95); MPV 11.6 fL (8.0-11.0); Platelet Count 188 10^3/uL (130-400); RBC 4.61 10^6/uL (4.36-5.78); RDW 12.6 % (11.8-14.1); RDW-SD 45.1 fL; WBC 8.29 10^3/uL (4.4-10.8)
[2021-07-07 19:12] LABS: ALT 25 U/L (16-63); AST 44 U/L (15-37); Albumin 4.2 g/dL (3.4-5.0); Alkaline Phosphatase 74 U/L (46-116); Anion Gap 8.3 mmol/L (3-11); BUN 24 mg/dL (7-18); Bilirubin, Total 0.9 mg/dL (0.2-1.0); CO2 30.7 mmol/L (21.0-32.0); CREATININE 1.5 mg/dL (0.70-1.30); Calculated LDL 68 mg/dL (<100); Chloride 102 mmol/L (98-107); Cholesterol 130 mg/dL (<200); Estimated GFR 45.26 (mL/min/1.73m2); Glucose 59 mg/dL (74-106); HDL Cholesterol 46 mg/dL (40-60); Potassium 3.9 mmol/L (3.5-5.1); Sodium 141 mmol/L (136-145); TSH (W/Ref FT4) 1.82 uIU/mL (0.36-3.74); Total Protein 7.3 g/dL (6.4-8.2); Triglyceride 81 mg/dL (<150)
== END 2021-07-07 13:47 | disposition home or self-care (01) ==
LOC: LBN 13:46
PROVIDERS: PCP Family Medicine; Visit Provider Family Medicine
DX: E78.5 Hyperlipidemia, unspecified (principal); I10 Essential (primary) hypertension; N18.30 Chronic kidney disease, stage 3 unspecified; R42 Dizziness and giddiness
CPT/HCPCS: 80053; 80061; 85027; 84443

== ENCOUNTER 2021-11-12 02:31 | Outpatient (CLI) | payer MEDICARE, SELFPAY | END 2021-11-12 02:32 | disposition home or self-care (01) | LOC: LBO 02:31 | PROVIDERS: PCP Family Medicine; Visit Provider Internal Medicine Endocrinology, Diabetes & Metabolism ==

== ENCOUNTER 2021-11-16 04:44 | Outpatient (CLI) | payer MEDICARE, SELFPAY ==
[2021-11-16 09:38] LABS: ALT 25 U/L (16-63); AST 28 U/L (15-37); Albumin 4.3 g/dL (3.4-5.0); Alkaline Phosphatase 182 U/L (46-116); Anion Gap 7.8 mmol/L (3-11); BUN 18 mg/dL (7-18); CO2 31.2 mmol/L (21.0-32.0); CREATININE 1.3 mg/dL (0.70-1.30); Calcium 9.1 mg/dL (8.5-10.1); Chloride 100 mmol/L (98-107); Estimated GFR 53.39 (mL/min/1.73m2); Glucose 56 mg/dL (74-106); Potassium 3.6 mmol/L (3.5-5.1); Sodium 139 mmol/L (136-145); Total Protein 7.7 g/dL (6.4-8.2)
[2021-11-16 17:38] LABS: Beta-Hydroxybutyrate 0.2 mmol/L (<0.4)
[2021-11-17 16:07] LABS: C-Peptide 4.1 ng/mL (1.1 - 4.4)
[2021-11-19 09:18] LABS: Insulin 12.7 uIU/mL (<29.0)
== END 2021-11-16 04:45 | disposition home or self-care (01) ==
LOC: LBO 04:44
PROVIDERS: PCP Family Medicine; Visit Provider Internal Medicine Endocrinology, Diabetes & Metabolism
DX: E16.1 Other hypoglycemia (principal)
CPT/HCPCS: 36415; 80053; 82010; 83525; 84681

== ENCOUNTER → 2021-11-19 02:04 | Outpatient (CLI) | payer MEDICARE, SELFPAY ==
--- NOTE | 2021-11-19 14:43 | DI.RAD_ITS ---
Exam(s) XR RIBS BI INCLUDE CHEST EXAM: XR RIBS BI INCLUDE CHEST CLINICAL HISTORY: s/p fall, right-sided pain, CHEST WALL PAIN, R07.89 TECHNIQUE: COMPARISON: No exams were available for comparison FINDINGS: PA and lateral views of the chest and 8 views of the ribs, bilateral, were obtained. The heart is at the upper limits of normal in size. Lungs are generally clear. No pleural effusion seen.. No pneu mothorax. There are multiple old right rib deformities noted, no evidence of acute rib fracture either the righ t or left. IMPRESSION: Negative examination of the chest and ribs. RADIATION DOSE DELIVERED: Total DLP
--- NOTE | 2021-11-19 14:44 | DI.RAD_ITS ---
Exam(s) XR LUMBAR SPINE COMPLETE EXAM: XR LUMBAR SPINE COMPLETE CLINICAL HISTORY: Recent low back pain, unclear cause, no trauma,M54.50,S/P FALL TECHNIQUE: COMPARISON: CT CT CHEST/ABD/PEL W from 04/24/2020 CR XR RIBS BI INCLUDE CHEST from 11/19/2021 FINDINGS: Five views were obtained. There are moderate degenerative changes of the SI joints. Intervertebral disc spaces are fairly well maintained. There is a T12 vertebral body anterior compression fracture which is of uncertain age. No other frac ture seen. IMPRESSION: T12 vertebral body fracture, uncertain age. This was not present on prior abdominal CT of April 25. RADIATION DOSE DELIVERED: Total DLP
== END ==
PROVIDERS: PCP Family Medicine; Visit Provider Family Medicine
DX: R07.89 Other chest pain (principal); M54.59 Other low back pain; M48.54XA Collapsed vertebra, not elsewhere classified, thoracic region, initial encounter for fracture; Z91.81 History of falling
CPT/HCPCS: 71046; 71110; 72110

== ENCOUNTER 2022-01-09 08:02 | Emergency (ER) | payer MEDICARE, SELFPAY ==
[2022-01-09] VITALS (14 sets, daily range): BP systolic 137–158; BP diastolic 94–105; PULSE 77–94; RESP 16–20; TEMP 36.2; O2SAT 93–98
--- NOTE | 2022-01-09 08:52 | W.ED.GENAD ---
Discharge Plan Disposition Patient Disposition: HOME Condition: Stable Discharge Details Clinical Impression: Bleeding external hemorrhoids Primary Care Provider: Mahin Wyman ED Provider: Gonzalez Castellon Home Meds and New Rx's Prescriptions: New hydrocortisone [Anusol-HC] 2.5 % cream with perineal applicator 1 applic VT QD-BID PRNQty: 30 0RF Continued docusate sodium [Colace] 100 mg capsule 100 mg PO TID PRN Qty: 270 3RF polyethylene glycol 3350 [Miralax] 17 gram/dose powder 17 g PO DAILY PRN Qty: 119 2RF Rx Instructions: take 17grams daily in large glass of water daily as needed cyclobenzaprine 5 mg tablet 5 mg PO BID PRN (Reason: muscle spasm) Qty: 30 1RF hydrochlorothiazide 12.5 mg tablet 12.5 mg PO DAILY Qty: 90 4RF carbidopa-levodopa [Sinemet] 25-100 mg tablet 1 tab PO QID Qty: 10 0RF Rx Instructions: not sent 04-27-21/ Dr.Umashankar Antoine with Lutein 1 EACH tablet 1 ea PO DAILY nitroglycerin 0.4 mg tablet, sublingual 0.4 mg SL Q5M MDD 3 tabs PRN (Reason: chest pain) Qty: 30 1RF Rx Instructions: 1 tab every 5 min x 3 doses for chest pain; call 911 if pain continues after 2nd dose (DME) blood-glucose meter Misc See Rx Instructions .MEDSUPPLY Qty: 1 0RF Rx Instructions: check your sugar twice a day (DME) Blood Glucose Test Strip See Rx Instructions .MEDSUPPLY Qty: 50 1RF Rx Instructions: check your blood sugar twice a day atorvastatin 40 mg tablet 40 mg PO DAILY Qty: 90 4RF diltiazem HCl 120 mg capsule,extended release 24hr 120 mg PO DAILY Qty: 90 3RF Rx Instructions: take one capsule daily/ (REPLACES VERAPAMIL) Held Eliquis 5 mg tablet 5 mg PO BID Qty: 180 4RF Hold Instructions: Resume on 01/10/22. hold dosing tonight, restart tomorrow if bleeding stopped Discharge Instructions Instructions: Hydrocortisone (Into the rectum), Hemorrhoids (ED) Additional Instructions: Please hold Eliquis dose tonight. You can restart tomorrow if bleeding has stopped. If bleeding continues, please discuss with your primary care physician. Use Anusol, apply twice daily to rectum for the next 1 week until inflammation resolves. Perform sitz bath as discussed. Please contact your primary care physician to arrange follow-up. Return to the ER immediately for any worsening or new concerning symptoms. Referrals: Mahin Wyman MD [Primary Care Provider] - Discharge Data Discharge Date/Time-TO BE ENTERED AT DEPARTURE: 01/09/22 09:54 Medical Decision Making 9:00 -?81-year-old male with history of Parkinson's disease, A. fib on Eliquis, external hemorrhoids in the remote past, here with rectal pain and bright red blood per rectum this morning. Patient has soft tender external hemorrhoid on examination with no active bleeding. Hemodynamically stable. Will check CBC to assess for anemia is unclear as to how much blood loss occurred this morning. -- Plan for Anusol and sitz bath. Patient to continue stool softener. Recommended they hold Eliquis dose tonight and then continue tomorrow if bleeding is stopped. Lab Data Lab results reviewed: Yes I reviewed the patient's lab results. Labs: Laboratory Tests Range/Units 01/09/22 01/09/22 01/09/22 08:27 08:27 08:27 WBC (4.4-10.8) 10^3/uL RBC (4.36-5.78) 10^6/uL Hgb (13.5-17.5) g/dL Hct (40.0-50.0) % MCV (80-95) fL MCH (27.0-33.0) pg MCHC (32.0-36.0) % RDW (11.8-14.1) % Plt Count (130-400) 10^3/uL MPV (8.0-11.0) fL Immature Gran % Neutrophils % Lymphocytes % Monocytes % Eosinophils % Basophils % Nucleated RBC % (0.0-0.3) % Absolute Neutrophils (1.2-6.7) 10^3/uL Absolute Lymphocytes (1.2-3.4) 10^3/uL Absolute Monocytes (0.1-0.8) 10^3/uL Absolute Eosinophils (0.0-0.7) 10^3/uL Absolute Basophils (0.0-0.2) 10^3/uL PT (9.3-11.0) sec 11.1 H INR (0.9-1.1) 1.1 Sodium (136-145) mmol/L 143 Potassium (3.5-5.1) mmol/L 3.9 Chloride (98-107) mmol/L 103 Carbon Dioxide (21.0-32.0) mmol/L 29.7 Anion Gap (3-11) mmol/L 10.3 BUN (7-18) mg/dL 28 H Creatinine (0.70-1.30) mg/dL 1.5 H Estimated GFR/1.73 m2 (mL/min/1.73m2) 45.14 Glucose (74-106) mg/dL 65 L Calcium (8.5-10.1) mg/dL 9.6 Total Bilirubin (0.2-1.0) mg/dL 1.1 H AST (15-37) U/L 47 H ALT (16-63) U/L 12 L Alkaline Phosphatase (46-116) U/L 91 Total Protein (6.4-8.2) g/dL 7.7 Albumin (3.4-5.0) g/dL 4.2 Patient ABO/Rh O Negative Antibody Screen NEGATIVE Range/Units 01/09/22 09:10 WBC (4.4-10.8) 10^3/uL 13.75 H RBC (4.36-5.78) 10^6/uL 4.64 Hgb (13.5-17.5) g/dL 14.7 Hct (40.0-50.0) % 44.1 MCV (80-95) fL 95 MCH (27.0-33.0) pg 31.7 MCHC (32.0-36.0) % 33.3 RDW (11.8-14.1) % 13.0 Plt Count (130-400) 10^3/uL 210 MPV (8.0-11.0) fL 10.9 Immature Gran % 0.4 Neutrophils % 84.9 Lymphocytes % 6.3 Monocytes % 7.6 Eosinophils % 0.5 Basophils % 0.3 Nucleated RBC % (0.0-0.3) % 0.0 Absolute Neutrophils (1.2-6.7) 10^3/uL 11.67 H Absolute Lymphocytes (1.2-3.4) 10^3/uL 0.87 L Absolute Monocytes (0.1-0.8) 10^3/uL 1.05 H Absolute Eosinophils (0.0-0.7) 10^3/uL 0.07 Absolute Basophils (0.0-0.2) 10^3/uL 0.04 PT (9.3-11.0) sec INR (0.9-1.1) Sodium (136-145) mmol/L Potassium (3.5-5.1) mmol/L Chloride (98-107) mmol/L Carbon Dioxide (21.0-32.0) mmol/L Anion Gap (3-11) mmol/L BUN (7-18) mg/dL Creatinine (0.70-1.30) mg/dL Estimated GFR/1.73 m2 (mL/min/1.73m2) Glucose (74-106) mg/dL Calcium (8.5-10.1) mg/dL Total Bilirubin (0.2-1.0) mg/dL AST (15-37) U/L ALT (16-63) U/L Alkaline Phosphatase (46-116) U/L Total Protein (6.4-8.2) g/dL Albumin (3.4-5.0) g/dL Patient ABO/Rh Antibody Screen HPI General Mode of arrival: ambulatory. Date/Time Provider Initiated Documentation: 01/09/22 08:05. Limitations to Documentation: no limitations. Information obtained by: patient and family (daughter in law, poa). HPI Narrative: 81-year-old male with history of multiple medical problems including Parkinson's disease, A. fib on Eliquis, external hemorrhoids, here with chief complaint of rectal bleeding. Patient notes he has been feeling constipated recently. He did take MiraLAX a few days ago. He had a bowel movement this morning around 3 AM with associated bright red blood per rectum. Blood was noted in his underwear later this morning. Patient denies associated abdominal pain. He does have rectal pain that is moderate and worse with sitting. He is concerned about recurrent hemorrhoid. Related Data Home Medications Medication Instructions Recorded Confirmed vit A 300 mcg-C 200 mg-E 27 1 ea PO DAILY 10/19/12 01/09/22 mg-lutein 2 mg and minerals tablet (Ocuvite with Lutein) nitroglycerin 0.4 mg sublingual 0.4 mg sublingual Q5M PRN chest 07/20/19 01/09/22 tablet pain #30 tabs blood sugar diagnostic (Blood #50 ea 01/21/21 01/09/22 Glucose Test strips) blood-glucose meter #1 ea 01/21/21 01/09/22 atorvastatin 40 mg tablet 40 mg PO DAILY #90 tab-caps 03/27/21 01/09/22 diltiazem HCl 120 mg 120 mg PO DAILY #90 caps 04/01/21 01/09/22 capsule,extended release 24 hr apixaban 5 mg tablet (Eliquis) 5 mg PO BID #180 tab-caps 04/22/21 01/09/22 hydrochlorothiazide 12.5 mg tablet 12.5 mg PO DAILY #90 tabs 04/22/21 01/09/22 carbidopa 25 mg-levodopa 100 mg 1 tab PO QID #10 tabs 04/28/21 01/09/22 tablet (Sinemet) docusate sodium 100 mg capsule 100 mg PO TID PRN constipation 06/11/21 01/09/22 (Colace) #270 tab-caps polyethylene glycol 3350 17 17 g PO DAILY PRN #119 grams 06/11/21 01/09/22 gram/dose oral powder (Miralax) cyclobenzaprine 5 mg tablet 5 mg PO BID PRN muscle spasm #30 11/03/21 01/09/22 tabs hydrocortisone 2.5 % topical cream 1 applic VT QD-BID PRN #30 grams 01/09/22 with perineal applicator (Anusol-HC) Previous Rx's Medication Instructions Recorded nitroglycerin 0.4 mg sublingual 0.4 mg sublingual Q5M PRN chest 07/20/19 tablet pain #30 tabs blood sugar diagnostic (Blood #50 ea 01/21/21 Glucose Test strips) blood-glucose meter #1 ea 01/21/21 atorvastatin 40 mg tablet 40 mg PO DAILY #90 tab-caps 03/27/21 diltiazem HCl 120 mg 120 mg PO DAILY #90 caps 04/01/21 capsule,extended release 24 hr apixaban 5 mg tablet (Eliquis) 5 mg PO BID #180 tab-caps 04/22/21 hydrochlorothiazide 12.5 mg tablet 12.5 mg PO DAILY #90 tabs 04/22/21 carbidopa 25 mg-levodopa 100 mg 1 tab PO QID #10 tabs 04/28/21 tablet (Sinemet) docusate sodium 100 mg capsule 100 mg PO TID PRN constipation 06/11/21 (Colace) #270 tab-caps polyethylene glycol 3350 17 17 g PO DAILY PRN #119 grams 06/11/21 gram/dose oral powder (Miralax) cyclobenzaprine 5 mg tablet 5 mg PO BID PRN muscle spasm #30 11/03/21 tabs hydrocortisone 2.5 % topical cream 1 applic VT QD-BID PRN #30 grams 01/09/22 with perineal applicator (Anusol-HC) Allergies Allergy/AdvReac Type Severity Reaction Status Date / Time No Known Allergies Allergy Verified 11/24/21 10:53 General Stated Complaint: GI Bleed NOEL: 3 Review of Systems All systems reviewed & are unremarkable except as noted in HPI and below Constitutional Constitutional: Denies fever(s) and Reports weakness (Generalized chronic) Gastrointestinal Gastrointestinal: Reports as per HPI Neurologic Neurologic: Reports weakness (Generalized chronic) PFSH All Active Problems (Updated 01/09/22 @ 08:59 by Gonzalez Castellon MD) Bleeding external hemorrhoids (Acute) Hypoglycemia (Acute) Hyperlipidemia (Acute) Gilbert syndrome (Acute) BPH (benign prostatic hyperplasia) (Chronic) Parkinson's disease (Chronic) Cervical radiculopathy (Acute) DNI (do not intubate) (Acute) DNR (do not resuscitate) (Acute) POLST (Physician Orders for Life-Sustaining Treatment) (Acute) Paroxysmal atrial fibrillation (Acute 02/19/16) on chronic anticoagulation Obstructive sleep apnea (Acute 02/19/16) sleep study : pt no longer using CPAP Nephrolithiasis (Acute 03/04/16) non obstructing - on abd/pelvic CT [id number]:asymptomatic : renal U/S: neprholithiasis/ stable cysts Low back pain (Acute) Hearing loss (Acute) Essential hypertension (Acute 04/24/13) CKD (chronic kidney disease), stage III (Acute 02/19/16) [facility] 04-30-2016: / [facility] 6 months 2020- cr 1.6 Parkinsonism (Acute) Peripheral neuropathy (Chronic) Hypoglycemia (Acute 04/24/12) 06/2021- recurrent Actinic keratosis (Acute 05/04/11) Drop attack (Acute 06/25/13) : negative carotid U/S- normal EEG - normal brain MRI normal Holter Monitor LS MRI: no spinal stenosis () Normal SPEP Family History Mother , age 83 Heart disease Father , age 83 Heart disease Social History Smoking/Tobacco Use Status: Never Smoking risk assessment performed?: Yes Alcohol Intake: current Alcohol Intake frequency: a few times a month Drug use: Never Substance use type: does not use Household members: spouse Housing: house Communication Needs: Hard of Hearing Do you need help understanding health information?: Rarely Pets and animals: No Current gender identity: male What is your relationship status?: Panel score (0-1 are the most socially isolated patients): 1 Do you feel safe at home: Yes Do you feel safe in your relationship?: Yes Exam Const General: cooperative and no acute distress Eyes Conjunctivae: normal conjunctivae Sclera: normal sclerae Resp Auscultation: clear to auscultation bilaterally, no rales, no rhonchi and no wheezes Cardio Rate: regular rate and not tachycardic Rhythm: regular rhythm GI Palpation: soft, not firm, no guarding, no masses, not rigid and nontender Auscultation: normal bowel sounds Rectal Exam: heme positive stool, hemorrhoids (Single large soft hemorrhoid, tender), No mass and tenderness Other: No active bleeding Skin General skin exam: no rashes or lesions noted Neuro General: patient alert, patient awake and tone normal Extrem General: no edema Course Vital Signs Vital signs: Vital Signs Temperature 36.2 C L 01/09/22 08:12 Pulse 87 01/09/22 08:12 Respiratory Rate 20 01/09/22 08:12 Blood Pressure 158/105 H 01/09/22 08:12 Pulse Oximetry 98 01/09/22 08:12 Temperature 36.2 C L 01/09/22 08:12 Temperature Source Temporal Artery Scan 01/09/22 08:12 Pulse 87 01/09/22 08:12 Respiratory Rate 20 01/09/22 08:12 Respiratory Effort Non-Labored 01/09/22 08:16 Blood Pressure 158/105 H 01/09/22 08:12 Blood Pressure Position Sitting 01/09/22 08:12 Pulse Oximetry 98 01/09/22 08:12 Oxygen Delivery Method Room Air 01/09/22 08:12 Oxygen Flow Rate 0 01/09/22 08:12 Pain Level 8 01/09/22 08:12
[2022-01-09] MEDS: Hydrocortisone 25 MG SUPP PR (09:06)
[2022-01-09] MEDS: Normal Saline Flush 10 ML SYR IVP (09:07)
[2022-01-09 09:14] LABS: Abs Immature Grans 0.05 10^3/uL (0.0-0.06); Absolute Basophil Count 0.04 10^3/uL (0.0-0.2); Absolute Eosinophil Count 0.07 10^3/uL (0.0-0.7); Absolute Lymphocyte Count 0.87 10^3/uL (1.2-3.4); Basophils % 0.3; Eosinophils % 0.5; HCT 44.1 % (40.0-50.0); HGB 14.7 g/dL (13.5-17.5); Immature Grans % 0.4; Lymphocytes % 6.3; MCH 31.7 pg (27.0-33.0); MCHC 33.3 % (32.0-36.0); MCV 95 fL (80-95); MPV 10.9 fL (8.0-11.0); Monocytes % 7.6; Neutrophils % 84.9; Platelet Count 210 10^3/uL (130-400); RBC 4.64 10^6/uL (4.36-5.78); RDW-SD 45.5 fL; WBC 13.75 10^3/uL (4.4-10.8)
[2022-01-09 09:15] LABS: Absolute Monocyte Count 1.05 10^3/uL (0.1-0.8); Absolute Neutrophil Count 11.67 10^3/uL (1.2-6.7)
[2022-01-09 09:28] LABS: ALT 12 U/L (16-63); AST 47 U/L (15-37); Albumin 4.2 g/dL (3.4-5.0); Alkaline Phosphatase 91 U/L (46-116); Anion Gap 10.3 mmol/L (3-11); BUN 28 mg/dL (7-18); Bilirubin, Total 1.1 mg/dL (0.2-1.0); CO2 29.7 mmol/L (21.0-32.0); CREATININE 1.5 mg/dL (0.70-1.30); Calcium 9.6 mg/dL (8.5-10.1); Chloride 103 mmol/L (98-107); Estimated GFR 45.14 (mL/min/1.73m2); Glucose 65 mg/dL (74-106); Potassium 3.9 mmol/L (3.5-5.1); Sodium 143 mmol/L (136-145); Total Protein 7.7 g/dL (6.4-8.2)
[2022-01-09 09:32] LABS: INR 1.1 (0.9-1.1); Prothrombin Time 11.1 sec (9.3-11.0)
== END 2022-01-09 09:54 | disposition home or self-care (01) ==
PROVIDERS: Emergency Provider Student in an Organized Health Care Education/Training Program; PCP Family Medicine
DX: K64.4 Residual hemorrhoidal skin tags (principal); K92.1 Melena
CPT/HCPCS: 36415; 80053; 86850; 86900; 86901; 99283; 85025; 85610

== ENCOUNTER 2022-02-02 09:42 | Inpatient (IN) | payer MEDICARE, SELFPAY ==
[2022-02-02] VITALS (39 sets, daily range): BP systolic 106–165; BP diastolic 68–97; PULSE 64–108; RESP 9–30; TEMP 36.8; O2SAT 91–97
--- NOTE | 2022-02-02 10:06 | W.ED.GENAD ---
Discharge Plan Disposition Patient Disposition: [facility] INPATIENT Condition: Stable Discharge Details Chief Complaint: GenMedical Clinical Impression: Comfort measures only status, Renal hemorrhage, right, Liver laceration, Spleen laceration, Fall at home, Elevated troponin Primary Care Provider: Gilbert Mao ED Provider: Pearl Fountain Home Meds and New Rx's Prescriptions: No Action docusate sodium [Colace] 100 mg capsule 100 mg PO TID PRN Qty: 270 3RF polyethylene glycol 3350 [Miralax] 17 gram/dose powder 17 g PO DAILY PRN Qty: 119 2RF Rx Instructions: take 17grams daily in large glass of water daily as needed hydrochlorothiazide 12.5 mg tablet 12.5 mg PO DAILY Qty: 90 4RF Eliquis 5 mg tablet 5 mg PO BID Qty: 180 4RF Hold Instructions: Resume on 01/10/22. hold dosing tonight, restart tomorrow if bleeding stopped carbidopa-levodopa [Sinemet] 25-100 mg tablet 1 tab PO QID Qty: 10 0RF Rx Instructions: not sent 04-27-21/ Dr.Umashankar Antoine with Lutein 1 EACH tablet 1 ea PO DAILY nitroglycerin 0.4 mg tablet, sublingual 0.4 mg SL Q5M MDD 3 tabs PRN (Reason: chest pain) Qty: 30 1RF Rx Instructions: 1 tab every 5 min x 3 doses for chest pain; call 911 if pain continues after 2nd dose (DME) blood-glucose meter Misc See Rx Instructions .MEDSUPPLY Qty: 1 0RF Rx Instructions: check your sugar twice a day (DME) Blood Glucose Test Strip See Rx Instructions .MEDSUPPLY Qty: 50 1RF Rx Instructions: check your blood sugar twice a day atorvastatin 40 mg tablet 40 mg PO DAILY Qty: 90 4RF diltiazem HCl 120 mg capsule,extended release 24hr 120 mg PO DAILY Qty: 90 3RF Rx Instructions: take one capsule daily/ (REPLACES VERAPAMIL) hydrocortisone [Anusol-HC] 2.5 % cream with perineal applicator 1 applic [place] QD-BID PRNQty: 30 0RF Medical Decision Making 1035 -- 81-year-old male who is DNR/DNI with a history of Parkinson's disease, paroxysmal atrial fibrillation, hypertension hyperlipidemia, CKD presents from home for unwitnessed fall overnight with possible right rib pain with increased lethargy since last night. Vitals within normal limits. Patient appears drowsy which [id number] states is increased from his baseline. Moist mucous membranes. Rigid extremities which is her baseline and no other focal deficits. No orthopedic deformities noted. No chest or abdominal tenderness or evidence of trauma. Will refer for screening labs, urinalysis, CT head to pelvis imaging to rule out fracture or acute disease. Will give IV fluids and reassess. 1330 --labs and imaging reviewed. White blood cell count 20. Creatinine 2.3 which is increased from his recent baseline of 1.5. Troponin 76. EKG obtained which notes a rate of 99, A. fib, T wave inversion in anterolateral leads which is seen in previous ekg, no stemi. Fluvid negative. CT head and cervical spine negative. CT chest abdomen pelvis with multiple findings and in general note anxiety likely right renal cyst which has ruptured resulting in hemorrhage with fluid seen surrounding the liver and spleen with liver and spleen laceration not excluded. He also has acute T3 and 4 compression fractures and right T11 and 12 rib fractures. Right lung notes pleural effusion versus atelectasis or contusion. CT findings discussed with [id number] who is power of workers compensation defense attorney at bedside. She states patient would not want surgery or transfer to another facility for surgical intervention. She states he is DNR and DNI and she would like to make her comfortable. Discussed with Dr. Callaway who notes that the liver and spleen findings would likely require observation at this time anyway and this patient is being admitted for lethargy and altered mental status, can continue to observe and if needed blood products if desired but otherwise observe keep comfortable. Troponin uptrending to 448. He remains hemodynamically stable. Repeat rectal temp 98.4. 1510 --discussed with [id number] and her at bedside and they would like to keep patient comfortable and do not want surgery, blood products or any cardiac intervention or transfer. Case discussed with hospitalist service who accepts patient for admission. Medical Records Medical records reviewed: Yes I reviewed the patient's medical records. Imaging Data Radiologic Study: Radiologist's impression: CT HEAD ? CERVICAL SPINE WO CLINICAL HISTORY: ? s/p fall, altered, on eliquis. ? TECHNIQUE:? Imaging Protocol: Axial computed tomography images with coronal and sagittal reformatted images were created and reviewed COMPARISON:? CT CT HEAD ? CERVICAL SPINE WO from 04/24/2020 FINDINGS: CT Head: Ventricles and Extra axial spaces: Normal in size and morphology for the patient's age. Hemorrhage: None. Cerebral parenchyma: No acute territorial infarct is present.? There are areas of decreased attenuation in the white matter most consistent with small vessel ischemic disease.? Midline shift: None. Brainstem/Cerebellum: Normal. Calvarium: Normal. Visualized Paranasal sinuses/Mastoids: There is a mucous retention cyst or polyp in the left maxillary sinus.? The remaining visualized paranasal sinuses and mastoid air cells are clear.? Soft Tissues: Unremarkable. CT Cervical Spine: Bones: No acute fracture or subluxation is seen in the cervical spine.? Degenerative changes are seen throughout the cervical spine.? Soft Tissues: Unremarkable. Lung Apices: Clear. IMPRESSION: 1. No acute intracranial process.? 2. No acute fracture or subluxation in the cervical spine. 3. Results of this exam have been verbally communicated with provider. Lab Data Lab results reviewed: Yes I reviewed the patient's lab results. Labs: Laboratory Tests Range/Units 02/02/22 02/02/22 02/02/22 11:06 11:06 11:31 WBC (4.4-10.8) 10^3/uL 20.71 H RBC (4.36-5.78) 10^6/uL 4.22 L Hgb (13.5-17.5) g/dL 13.4 L Hct (40.0-50.0) % 40.5 MCV (80-95) fL 96 H MCH (27.0-33.0) pg 31.8 MCHC (32.0-36.0) % 33.1 RDW (11.8-14.1) % 13.2 Plt Count (130-400) 10^3/uL 197 MPV (8.0-11.0) fL 12.1 H Immature Gran % 0.6 Neutrophils % 88.5 Lymphocytes % 3.4 Monocytes % 7.3 Eosinophils % 0.0 Basophils % 0.2 Nucleated RBC % (0.0-0.3) % 0.0 Absolute Neutrophils (1.2-6.7) 10^3/uL 18.33 H Absolute Lymphocytes (1.2-3.4) 10^3/uL 0.70 L Absolute Monocytes (0.1-0.8) 10^3/uL 1.51 H Absolute Eosinophils (0.0-0.7) 10^3/uL 0.00 Absolute Basophils (0.0-0.2) 10^3/uL 0.04 Sodium (136-145) mmol/L 139 Potassium (3.5-5.1) mmol/L 4.3 Chloride (98-107) mmol/L 100 Carbon Dioxide (21.0-32.0) mmol/L 27.6 Anion Gap (3-11) mmol/L 11.4 H BUN (7-18) mg/dL 31 H Creatinine (0.70-1.30) mg/dL 2.3 H Estimated GFR/1.73 m2 (mL/min/1.73m2) 27.57 Glucose (74-106) mg/dL 116 H Calcium (8.5-10.1) mg/dL 9.5 Magnesium (1.8-2.4) mg/dL 2.1 Total Bilirubin (0.2-1.0) mg/dL 1.6 H AST (15-37) U/L 40 H ALT (16-63) U/L 22 Alkaline Phosphatase (46-116) U/L 75 Troponin I (<or=60) ng/L 76 H* Total Protein (6.4-8.2) g/dL 7.1 Albumin (3.4-5.0) g/dL 3.8 Urine Color (Yellow) Urine Clarity (Clear) Urine pH (5-8) Ur Specific [place] (1.005-1.025) Urine Protein (Negative) mg/dL Urine Ketones (Negative) mg/dL Urine Blood (Negative) Urine Nitrite (Negative) Urine Bilirubin (Negative) Urine Urobilinogen (Up TO 0.2) EU/dL Ur Leukocyte Esterase (Negative) Urine RBC (0-2) HPF Urine WBC Ur Epithelial Cells Urine Crystals Urine Bacteria Urine Mucus Ur Culture Indicated? Urine Glucose (Negative) mg/dL COVID-19 Source Not Applicable SARS-CoV-2 (PCR) (Negative) Negative Influenza Type A (PCR) (Negative) Negative Influenza Type B (PCR) (Negative) Negative RSV (PCR) (Negative) Negative Range/Units 02/02/22 02/02/22 14:00 14:15 WBC (4.4-10.8) 10^3/uL RBC (4.36-5.78) 10^6/uL Hgb (13.5-17.5) g/dL Hct (40.0-50.0) % MCV (80-95) fL MCH (27.0-33.0) pg MCHC (32.0-36.0) % RDW (11.8-14.1) % Plt Count (130-400) 10^3/uL MPV (8.0-11.0) fL Immature Gran % Neutrophils % Lymphocytes % Monocytes % Eosinophils % Basophils % Nucleated RBC % (0.0-0.3) % Absolute Neutrophils (1.2-6.7) 10^3/uL Absolute Lymphocytes (1.2-3.4) 10^3/uL Absolute Monocytes (0.1-0.8) 10^3/uL Absolute Eosinophils (0.0-0.7) 10^3/uL Absolute Basophils (0.0-0.2) 10^3/uL Sodium (136-145) mmol/L Potassium (3.5-5.1) mmol/L Chloride (98-107) mmol/L Carbon Dioxide (21.0-32.0) mmol/L Anion Gap (3-11) mmol/L BUN (7-18) mg/dL Creatinine (0.70-1.30) mg/dL Estimated GFR/1.73 m2 (mL/min/1.73m2) Glucose (74-106) mg/dL Calcium (8.5-10.1) mg/dL Magnesium (1.8-2.4) mg/dL Total Bilirubin (0.2-1.0) mg/dL AST (15-37) U/L ALT (16-63) U/L Alkaline Phosphatase (46-116) U/L Troponin I (<or=60) ng/L 448 H* Total Protein (6.4-8.2) g/dL Albumin (3.4-5.0) g/dL Urine Color (Yellow) Yellow Urine Clarity (Clear) Cloudy Urine pH (5-8) 6.0 Ur Specific [place] (1.005-1.025) 1.025 Urine Protein (Negative) mg/dL 30 H Urine Ketones (Negative) mg/dL Negative Urine Blood (Negative) Large H Urine Nitrite (Negative) Negative Urine Bilirubin (Negative) Negative Urine Urobilinogen (Up TO 0.2) EU/dL 0.2 Ur Leukocyte Esterase (Negative) Negative Urine RBC (0-2) HPF >50 H Urine WBC Not Applicable Ur Epithelial Cells Not Applicable Urine Crystals Not Applicable Urine Bacteria Not Applicable Urine Mucus Not Applicable Ur Culture Indicated? No Urine Glucose (Negative) mg/dL Negative COVID-19 Source SARS-CoV-2 (PCR) (Negative) Influenza Type A (PCR) (Negative) Influenza Type B (PCR) (Negative) RSV (PCR) (Negative) ECG Data Attestation: I personally reviewed and interpreted this ECG (s) as follows: Interpretation: rate of 99, afib, T wave inversion in anterolateral leads which has been seen in previous EKG, no stemi. HPI General Mode of arrival: ambulatory. Date/Time Provider Initiated Documentation: 02/02/22 09:46. Limitations to Documentation: no limitations. Information obtained by: patient. HPI Narrative: Pt is a 81yo M w/ a h/o Parkinson's disease who presents to the ED from home for fall at midnight and reported more lethargic today. [id number] at bedside states that patient has 24-hour caregivers who heard him fall around midnight last night. Bzjrprty-[id number]-[id number] states the caregiver checked on patient he was laying on the ground and appeared to be complaining of pain in his right ribs. She states patient has been declining in general with increasing weakness with his Parkinson's but appears significantly more lethargic today. Denies any new medications or change in his medications. Denies any known fever, vomiting, diarrhea. She states he was seen here recently for a bleeding hemorrhoid which is since resolved Related Data Home Medications Medication Instructions Recorded Confirmed vit A 300 mcg-C 200 mg-E 27 1 ea PO DAILY 10/19/12 02/02/22 mg-lutein 2 mg and minerals tablet (Ocuvite with Lutein) nitroglycerin 0.4 mg sublingual 0.4 mg sublingual Q5M PRN chest 07/20/19 02/02/22 tablet pain #30 tabs blood sugar diagnostic (Blood #50 ea 01/21/21 02/02/22 Glucose Test strips) blood-glucose meter #1 ea 01/21/21 02/02/22 atorvastatin 40 mg tablet 40 mg PO DAILY #90 tab-caps 03/27/21 02/02/22 diltiazem HCl 120 mg 120 mg PO DAILY #90 caps 04/01/21 02/02/22 capsule,extended release 24 hr apixaban 5 mg tablet (Eliquis) 5 mg PO BID #180 tab-caps 04/22/21 02/02/22 hydrochlorothiazide 12.5 mg tablet 12.5 mg PO DAILY #90 tabs 04/22/21 02/02/22 carbidopa 25 mg-levodopa 100 mg 1 tab PO QID #10 tabs 04/28/21 02/02/22 tablet (Sinemet) docusate sodium 100 mg capsule 100 mg PO TID PRN constipation 06/11/21 02/02/22 (Colace) #270 tab-caps polyethylene glycol 3350 17 17 g PO DAILY PRN #119 grams 06/11/21 02/02/22 gram/dose oral powder (Miralax) hydrocortisone 2.5 % topical cream 1 applic OH QD-BID PRN #30 grams 01/09/22 02/02/22 with perineal applicator (Anusol-HC) Previous Rx's Medication Instructions Recorded nitroglycerin 0.4 mg sublingual 0.4 mg sublingual Q5M PRN chest 07/20/19 tablet pain #30 tabs blood sugar diagnostic (Blood #50 ea 01/21/21 Glucose Test strips) blood-glucose meter #1 ea 01/21/21 atorvastatin 40 mg tablet 40 mg PO DAILY #90 tab-caps 03/27/21 diltiazem HCl 120 mg 120 mg PO DAILY #90 caps 04/01/21 capsule,extended release 24 hr apixaban 5 mg tablet (Eliquis) 5 mg PO BID #180 tab-caps 04/22/21 hydrochlorothiazide 12.5 mg tablet 12.5 mg PO DAILY #90 tabs 04/22/21 carbidopa 25 mg-levodopa 100 mg 1 tab PO QID #10 tabs 04/28/21 tablet (Sinemet) docusate sodium 100 mg capsule 100 mg PO TID PRN constipation 06/11/21 (Colace) #270 tab-caps polyethylene glycol 3350 17 17 g PO DAILY PRN #119 grams 06/11/21 gram/dose oral powder (Miralax) hydrocortisone 2.5 % topical cream 1 applic [place] QD-BID PRN #30 grams 01/09/22 with perineal applicator (Anusol-HC) Allergies Allergy/AdvReac Type Severity Reaction Status Date / Time No Known Allergies Allergy Verified 02/02/22 10:02 General Stated Complaint: GenMedical NOEL: 3 Review of Systems All systems reviewed & are unremarkable except as noted in HPI and below Constitutional Constitutional: Denies chills, Denies excessive sweating, Denies fatigue, Denies fever(s), Denies weakness and Denies weight loss Eyes Eyes: Reports system reviewed and no additional complaints, except as documented and Denies blurry vision ENT Ears, Nose, Mouth, and Throat: Denies vertigo, Denies dizziness, Denies otalgia, Denies nasal congestion, Denies sore throat and Denies throat swelling Cardiovascular Cardiovascular: Denies chest pain, Denies syncope, Denies rapid heart rate and Denies dyspnea Respiratory Respiratory: Denies chest congestion, Denies cough, Denies pain on inspiration and Denies dyspnea Gastrointestinal Gastrointestinal: Denies abdominal pain, Denies diarrhea and Denies vomiting Genitourinary Genitourinary: Denies hematuria, Denies dysuria and Denies flank pain Musculoskeletal Musculoskeletal: Denies back pain and Denies joint swelling Integumentary/Breasts Skin/Breast: Denies lesions and Denies rash Neurologic Neurologic: Denies behavioral changes, Denies confusion, Denies vertigo, Denies dizziness, Denies syncope, Denies localized weakness and Denies weakness Psychiatric Psychiatric: Denies behavioral changes, Denies confusion and Denies depression Endocrine Endocrine: Denies excessive sweating and Denies fatigue Hematologic/Lymphatic Hematologic/Lymphatic: Denies easy bruising and Denies lymphadenopathy Allergic/Immunologic Allergic/Immunologic: Denies throat swelling PFSH All Active Problems (Updated 02/02/22 @ 15:23 by Pearl Fountain DO) Comfort measures only status (Acute) Renal hemorrhage, right (Acute) Liver laceration (Acute) Spleen laceration (Acute) Fall at home (Acute) Elevated troponin (Acute) Bleeding external hemorrhoids (Acute) Hypoglycemia (Acute) Cervical radiculopathy (Acute) POLST (Physician Orders for Life-Sustaining Treatment) (Acute) Nephrolithiasis (Acute 03/04/16) non obstructing - on abd/pelvic CT [id number]:asymptomatic : renal U/S: neprholithiasis/ stable cysts Low back pain (Acute) Hearing loss (Acute) Parkinsonism (Acute) Peripheral neuropathy (Chronic) Hypoglycemia (Acute 04/24/12) 06/2021- recurrent Actinic keratosis (Acute 05/04/11) Drop attack (Acute 06/25/13) : negative carotid U/S- normal EEG - normal brain MRI normal Holter Monitor LS MRI: no spinal stenosis () Normal SPEP Medical History (Updated 02/02/22 @ 15:23 by Pearl Fountain DO) BPH (benign prostatic hyperplasia) CKD (chronic kidney disease), stage III (02/19/16) [facility] [place] 04-30-2016: / fup 6 months 2020- cr 1.6 DNI (do not intubate) DNR (do not resuscitate) Essential hypertension (04/24/13) Gilbert syndrome Hyperlipidemia Obstructive sleep apnea (02/19/16) sleep study : pt no longer using CPAP Parkinson's disease Paroxysmal atrial fibrillation (02/19/16) on chronic anticoagulation Family History Mother , age 83 Heart disease Father , age 83 Heart disease Social History Smoking/Tobacco Use Status: Never Smoking risk assessment performed?: Yes Alcohol Intake: never Drug use: Never Substance use type: does not use Household members: spouse Housing: house Communication Needs: Hard of Hearing Do you need help understanding health information?: Rarely Pets and animals: No Current gender identity: male What is your relationship status?: Panel score (0-1 are the most socially isolated patients): 1 Do you feel safe at home: Yes Do you feel safe in your relationship?: Yes Exam Const General: cooperative and lethargic [facility] Head: normal to inspection Ears: hearing grossly normal bilaterally, external ears normal and TM's normal bilaterally General nose exam: external nose normal Face and sinus: normal facial exam Mouth: oral mucosae normal Eyes General: appearance normal, both eyes and all related structures Eyelids: eyelids normal Pupils: PERRL EOM: EOM intact bilaterally Neck Neck: normal visual inspection Lymphatic: no lymphadenopathy noted Chest Chest: normal inspection of the chest, normal palpation of entire chest wall and no tenderness Resp Effort & Inspection: normal respiratory effort and able to speak in complete sentences Auscultation: clear to auscultation bilaterally Cardio Rate: regular rate Rhythm: regular rhythm GI Inspection: normal to inspection Palpation: soft, not firm, no guarding, no hepatosplenomegaly, no masses and nontender Auscultation: hypoactive bowel sounds Back/Spine/Pelvis Back: no CVA tenderness Skin General skin exam: no rashes or lesions noted Neuro General: other (can follow some commands) Motor: other (rigid extremities at baseline) Sensory Exam: no sensory deficits noted Extrem General: normal to inspection and full ROM Other: No significant pain with range of motion of bilateral upper or lower extremities. Psych Appearance: grossly normal Mental Status: mental status grossly normal Speech and Movement: speech and movement normal Affect: normal affect Thought Process: normal Course Vital Signs Vital signs: Vital Signs Temperature 98.2 F 02/02/22 09:41 Pulse 95 H 02/02/22 09:41 Respiratory Rate 25 H 02/02/22 09:41 Blood Pressure 117/68 02/02/22 09:41 Pulse Oximetry 97 02/02/22 09:41 Temperature 98.2 F 02/02/22 09:41 Temperature Source Temporal Artery Scan 02/02/22 09:41 Pulse 95 H 02/02/22 09:41 Respiratory Rate 22 02/02/22 09:52 Respiratory Effort Non-Labored 02/02/22 09:52 Respiratory Depth Normal 02/02/22 09:52 Respiratory Pattern Normal 02/02/22 09:52 Blood Pressure 117/68 02/02/22 09:41 Blood Pressure Position Sitting 02/02/22 09:41 Pulse Oximetry 97 02/02/22 09:41 Oxygen Delivery Method Room Air 02/02/22 09:41 Oxygen Flow Rate 0 02/02/22 09:41 Pain Level 0 02/02/22 09:41
--- NOTE | 2022-02-02 10:30 | DI.CT_ITS ---
Exam(s) CT CHEST/ABD/PEL WO CT THORACIC LUMBAR SPINE REC EXAM: CT CHEST/ABD/PEL WO and CT thoracic and lumbar spine recons CLINICAL HISTORY: s/p fall, r/o acute rib/pelvis fracture TECHNIQUE: Imaging Protocol: Axial computed tomography images with coronal and sagittal reformatted images were created and reviewed COMPARISON: CT CT CHEST/ABD/PEL W from 04/24/2020 CR XR RIBS BI INCLUDE CHEST from 11/19/2021 CR XR LUMBAR SPINE COMPLETE from 11/19/2021 FINDINGS: Lack of IV contrast does limit evaluation of the abdominal pelvic organs. The examination is limited due to patient motion artifact. CHEST: Tracheobronchial tree: Patent where visualized. Pulmonary parenchyma: There is a small to moderate size right pleural effusion with subjacent infiltr ate which may represent atelectasis or contusion. No architectural distortion. Mediastinum and [place]: No dominant adenopathy or fluid collection. The esophagus is unremarkable. Ther e is a small hiatal hernia. Thyroid gland: Unremarkable. Pleura: There is a small to moderate right pleural effusion. No left pleural effusion. No pneumotho rax. Heart: The heart is enlarged. Coronary artery calcifications are present. No pericardial effusion. Aorta: Thoracic aorta non-dilated. Atherosclerosis is present. Lymph nodes: Within normal limits. Bones:Within normal limits for the patient's age. There appears to be nondisplaced fracture involvin g the posterior aspect of the right 11th and 12th ribs. There is an old T12 compression fracture. T here is depression of the superior endplates of T3 and T4 not apparent on the x-ray of the chest from 11/19/2021. There is an old compression deformity of T8. Soft tissues: Unremarkable. ABDOMEN: Liver: Normal density. There is a stable right hepatic cyst. Please see the section under the kidney s. Gallbladder and Biliary Tract: No radiodense calculus or dilation. Pancreas: Normal density, no abnormal calcifications or inflammatory process. Spleen: There is a small amount of fluid adjacent to the spleen. No definite splenic abnormality is seen on this noncontrast examination. Given the fluid however of laceration cannot be excluded. Adrenals: No masses seen. Kidneys: In the site where the patient had a previous large renal cyst, there is a complex collection measuring 14 AP by 14 transverse by 14 craniocaudad cm. There is now high [place] material seen wit hin the cyst and surrounding the cyst in the pararenal space. Given the clinical history, right renal intracystic hemorrhage and perinephric hematoma is suspected. There is fluid seen in the right parar enal/retroperitoneal space extending into the pelvis. There is some irregularity of the posterior as pect of the right lobe of the liver. An adjacent hepatic laceration cannot be excluded. There are m ultiple left renal cysts present. Nonobstructing stones are seen in the lower pole of the left kidne y. There is a tiny nonobstructing stone in the lower pole of the right kidney. No masses seen. Abdominal Aorta: Abdominal portion non-dilated. There is atherosclerosis present. Bowel: No obstruction or bowel wall thickening. No evidence of appendicitis. There is a large amount of stool throughout the colon but no evidence of obstruction or inflammation. Peritoneal Cavity: No ascites, collection or mesenteric inflammatory response. No free air. Lymph Nodes: Within normal limits. Bones: Within normal limits for the patient's age. No acute fracture or subluxation is seen in the l umbar spine. Soft Tissues: Unremarkable. PELVIS: Bladder: Symmetric distention, no gross wall thickening. Reproductive Organs: Unremarkable as visualized. Lymph Nodes: Within normal limits. Bones: Within normal limits for the patient's age. IMPRESSION: 1. Small to moderate size right pleural effusion with subjacent infiltrate which may represent atelec tasis or contusion. 2. Findings suspicious for nondisplaced fractures involving the right 11th and 12th ribs posteriorly. 3. New superior compression deformities of T3 and T4 suspicious for acute fractures. 4. Large complex hematoma in the right pararenal space associated with the right kidney suspicious fo r traumatic injury to the patient's known large right renal cyst with intracystic hemorrhage. Large p erinephric hematoma and hemorrhage within the right pararenal space. Renal laceration cannot be exclu ded. Lack of IV contrast does limit evaluation. The possibility of a ruptured right renal mass should be considered. 5. Small amount of perisplenic fluid. Lack of contrast limits evaluation for laceration, but lacerat ion cannot be excluded. 6. Irregularity of the posterior aspect of the right lobe of the liver. This is adjacent to the larg e pararenal hematoma. A hepatic laceration cannot be excluded. 7. No acute fracture or subluxation in the lumbar spine. 8. Old T8 and T12 compression fracture deformities. 9. Results of this exam have been verbally communicated with provider. RADIATION DOSE DELIVERED: 1594.03 mGy.cm Total DLP 1594.03 mGy.cm Total DLP DATA REPOSITORY: All CT scans at this facility are submitted to the National Radiology Data Registry (NRDR) Dose Index Registry (DIR) with the [employer] (A[employer]). RADIATION OPTIMIZATION: All CT scans at this facility use at least one of these dose optimization te chniques: automated exposure control; mA and/or kV adjustment per patient size (includes targeted exa ms where dose is matched to clinical indication); or iterative reconstruction.
--- NOTE | 2022-02-02 10:30 | DI.CT_ITS ---
Exam(s) CT HEAD CERVICAL SPINE WO EXAM: CT HEAD CERVICAL SPINE WO CLINICAL HISTORY: s/p fall, altered, on eliquis. TECHNIQUE: Imaging Protocol: Axial computed tomography images with coronal and sagittal reformatted images were created and reviewed COMPARISON: CT CT HEAD CERVICAL SPINE WO from 04/24/2020 FINDINGS: CT Head: Ventricles and Extra axial spaces: Normal in size and morphology for the patient's age. Hemorrhage: None. Cerebral parenchyma: No acute territorial infarct is present. There are areas of decreased attenuati on in the white matter most consistent with small vessel ischemic disease. Midline shift: None. Brainstem/Cerebellum: Normal. Calvarium: Normal. Visualized Paranasal sinuses/Mastoids: There is a mucous retention cyst or polyp in the left maxillar y sinus. The remaining visualized paranasal sinuses and mastoid air cells are clear. Soft Tissues: Unremarkable. CT Cervical Spine: Bones: No acute fracture or subluxation is seen in the cervical spine. Degenerative changes are seen throughout the cervical spine. Soft Tissues: Unremarkable. Lung Apices: Clear. IMPRESSION: 1. No acute intracranial process. 2. No acute fracture or subluxation in the cervical spine. 3. Results of this exam have been verbally communicated with provider. RADIATION DOSE DELIVERED: 1,160.16mGy.cm Total DLP DATA REPOSITORY: All CT scans at this facility are submitted to the National Radiology Data Registry (NRDR) Dose Index Registry (DIR) with the [employer] ([employer]). RADIATION OPTIMIZATION: All CT scans at this facility use at least one of these dose optimization te chniques: automated exposure control; mA and/or kV adjustment per patient size (includes targeted exa ms where dose is matched to clinical indication); or iterative reconstruction.
[2022-02-02 11:39] LABS: Abs Immature Grans 0.13 10^3/uL (0.0-0.06); Absolute Monocyte Count 1.51 10^3/uL (0.1-0.8); Basophils % 0.2; HCT 40.5 % (40.0-50.0); HGB 13.4 g/dL (13.5-17.5); Immature Grans % 0.6; Lymphocytes % 3.4; MCH 31.8 pg (27.0-33.0); MCHC 33.1 % (32.0-36.0); MCV 96 fL (80-95); MPV 12.1 fL (8.0-11.0); Monocytes % 7.3; Neutrophils % 88.5; Platelet Count 197 10^3/uL (130-400); RBC 4.22 10^6/uL (4.36-5.78); RDW 13.2 % (11.8-14.1); RDW-SD 46.8 fL; WBC 20.71 10^3/uL (4.4-10.8)
[2022-02-02 11:41] LABS: Absolute Basophil Count 0.04 10^3/uL (0.0-0.2); Absolute Neutrophil Count 18.33 10^3/uL (1.2-6.7)
[2022-02-02] MEDS: ACETAMINOPHEN 1,000 MG/100 ML BTL 400 MG IVPB ×2 (11:54→20:20)
[2022-02-02 12:00] LABS: ALT 22 U/L (16-63); AST 40 U/L (15-37); Albumin 3.8 g/dL (3.4-5.0); Alkaline Phosphatase 75 U/L (46-116); Anion Gap 11.4 mmol/L (3-11); BUN 31 mg/dL (7-18); Bilirubin, Total 1.6 mg/dL (0.2-1.0); CO2 27.6 mmol/L (21.0-32.0); CREATININE 2.3 mg/dL (0.70-1.30); Calcium 9.5 mg/dL (8.5-10.1); Chloride 100 mmol/L (98-107); Estimated GFR 27.57 (mL/min/1.73m2); Glucose 116 mg/dL (74-106); Magnesium 2.1 mg/dL (1.8-2.4); Potassium 4.3 mmol/L (3.5-5.1); Sodium 139 mmol/L (136-145); Total Protein 7.1 g/dL (6.4-8.2)
[2022-02-02 12:01] LABS: Troponin I 76 ng/L (<or=60)
--- NOTE | 2022-02-02 12:15 | RT.EKG_ITS ---
APPROVED REPORT Exam: Resting ECG Reason for Exam: elevated troponin Patient Location: E HR:99 bpm ECG Measurements Heart Rate 99 AXIS RI 203 P 0 QRSd 91 QRS -31 QT 346 T 140 QTc 445 Conclusion Unknown rhythm, irregular rate...V-rate 81-129, variation>10% Left axis deviation...QRS axis (-30,-90) Nonspecific T abnrm, anterolateral leads...T <-0.10mV, I aVL V2-V6. Afib, no stemi. I have reviewed and interpreted ECG and agree with software generated interpretation.
[2022-02-02 12:42] LABS: COVID-19 PCR Negative (Negative); Influenza A PCR Negative (Negative); Influenza B PCR Negative (Negative); RSV PCR Negative (Negative)
[2022-02-02] MEDS: Normal Saline 1,000 ML 1000 ML IV (13:42)
[2022-02-02 14:18] LABS: Bilirubin Negative (Negative); Blood Large (Negative); Clarity Cloudy (Clear); Glucose Negative (Negative); Ketones Negative (Negative); Leukocyte Esterase Negative (Negative); Nitrite Negative (Negative); Specific Gravity 1.025 (1.005-1.025); Urobilinogen 0.2 EU/dL (Up TO 0.2)
--- NOTE | 2022-02-02 14:21 | HPE_ITS ---
Date of service: 02/02/22 Time of Service: 14:21 Assessment and Plan Assessment and plan (1) Comfort measures only status: Status: Acute Assessment and plan: will admit to med/surg. routine comfort care orders. no labs, no vitals dilaudid for pain. regular diet as tolerated. PT when pain better managed. discussed with DR White. History of Present Illness History of Present Illness Chief Complaint: fall Narrative: information obtained from ED record, patient unable to provide and no family at bedside at time of admission This is a 81year old male with Parkinson's disease who presented to the ED from home for fall at midnight and reported more lethargic in am.? [id number] at bedside states that patient has 24-hour caregivers who heard him fall around m idnight last night.? [id number]-vl-trl states the caregiver checked on patient he was laying on the ground and appeared to be complaining of pain in his right ribs.? She states patient has been declining in general with increasing weakness with his Parkinson's but appears significantly more lethargic today.? Denies any new medications or change in his medications.? Denies any known fever, vomiting, diarrhea.? She states he was seen here recently for a bleeding hemorrhoid which is since resolved. work up in the ED shows included multiple images with multiple findings including right renal cyst which has ruptured resulting in hemorrhage with fluid seen surrounding the liver and spleen with liver and spleen laceration not excluded.? He also has acute T3 and 4 compression fractures and right T11 and 12 rib fractures.? Right lung notes pleural effusion versus atelectasis or contusion. CT findings discussed with [id number] who is power of trial attorney at bedside.? She states patient would not want surgery or transfer to another facility for surgical intervention.? She states he is DNR and DNI and she would like to make her comfortable.? Discussed with Dr. Callaway who notes that the liver and spleen findings would likely require observation at this time anyway and this patient is being admitted for lethargy and altered mental status, can continue to observe and if needed blood products if desired but otherwise observe keep comfortable. Troponin noted to be uptrending to 448.? He remains hemodynamically stable.?discussed with [id number] and her at bedside and they would like to keep patient comfortable and do not want surgery, blood products or any cardiac intervention or transfer. Case discussed with hospitalist service who accepts patient for admission for comfort care. Review of Systems All systems reviewed & are unremarkable except as noted in HPI and below and Unobtainable due to mental condition PFSH All Active Problems (Updated 02/02/22 @ 15:23 by Pearl Fountain DO) Comfort measures only status (Acute) Renal hemorrhage, right (Acute) Liver laceration (Acute) Spleen laceration (Acute) Fall at home (Acute) Elevated troponin (Acute) Bleeding external hemorrhoids (Acute) Hypoglycemia (Acute) Cervical radiculopathy (Acute) POLST (Physician Orders for Life-Sustaining Treatment) (Acute) Nephrolithiasis (Acute 03/04/16) non obstructing - on abd/pelvic CT [id number]:asymptomatic : renal U/S: neprholithiasis/ stable cysts Low back pain (Acute) Hearing loss (Acute) Parkinsonism (Acute) Peripheral neuropathy (Chronic) Hypoglycemia (Acute 04/24/12) 06/2021- recurrent Actinic keratosis (Acute 05/04/11) Drop attack (Acute 06/25/13) : negative carotid U/S- normal EEG - normal brain MRI normal Holter Monitor LS MRI: no spinal stenosis () Normal SPEP Medical History (Updated 02/02/22 @ 15:23 by Pearl Fountain DO) BPH (benign prostatic hyperplasia) CKD (chronic kidney disease), stage III (02/19/16[place] [facility] [place] 6 months 2020- cr 1.6 DNI (do not intubate) DNR (do not resuscitate) Essential hypertension (04/24/13) Gilbert syndrome Hyperlipidemia Obstructive sleep apnea (02/19/16) sleep study : pt no longer using CPAP Parkinson's disease Paroxysmal atrial fibrillation (02/19/16) on chronic anticoagulation Family History Mother , age 83 Heart disease Father , age 83 Heart disease Social History Smoking/Tobacco Use Status: Never Smoking risk assessment performed?: Yes Alcohol Intake: never Drug use: Never Substance use type: does not use Household members: spouse Housing: house Communication Needs: Hard of Hearing Do you need help understanding health information?: Rarely Pets and animals: No Current gender identity: male What is your relationship status?: Panel score (0-1 are the most socially isolated patients): 1 Do you feel safe at home: Yes Do you feel safe in your relationship?: Yes Meds Allergies and Home Medications Allergies Allergy/AdvReac Type Severity Reaction Status Date / Time No Known Allergies Allergy Verified 02/02/22 10:02 Home Medications Medication Instructions Recorded Confirmed Type vit A 300 mcg-C 200 mg-E 27 1 ea PO DAILY 10/19/12 02/02/22 History mg-lutein 2 mg and minerals tablet (Ocuvite with Lutein) nitroglycerin 0.4 mg sublingual 0.4 mg sublingual Q5M PRN chest 07/20/19 02/02/22 Rx tablet pain #30 tabs blood sugar diagnostic (Blood #50 ea 01/21/21 02/02/22 Rx Glucose Test strips) blood-glucose meter #1 ea 01/21/21 02/02/22 Rx atorvastatin 40 mg tablet 40 mg PO DAILY #90 tab-caps 03/27/21 02/02/22 Rx diltiazem HCl 120 mg 120 mg PO DAILY #90 caps 04/01/21 02/02/22 Rx capsule,extended release 24 hr apixaban 5 mg tablet (Eliquis) 5 mg PO BID #180 tab-caps 04/22/21 02/02/22 Rx hydrochlorothiazide 12.5 mg tablet 12.5 mg PO DAILY #90 tabs 04/22/21 02/02/22 Rx carbidopa 25 mg-levodopa 100 mg 1 tab PO QID #10 tabs 04/28/21 02/02/22 Rx tablet (Sinemet) docusate sodium 100 mg capsule 100 mg PO TID PRN constipation 06/11/21 02/02/22 Rx (Colace) #270 tab-caps polyethylene glycol 3350 17 17 g PO DAILY PRN #119 grams 06/11/21 02/02/22 Rx gram/dose oral powder (Miralax) hydrocortisone 2.5 % topical cream 1 applic KS QD-BID PRN #30 grams 01/09/22 02/02/22 Rx with perineal applicator (Anusol-HC) Exam Const General: cooperative and lethargic [facility] Head: normal to inspection Ears: hearing grossly normal bilaterally, external ears normal and TM's normal bilaterally General nose exam: external nose normal Face and sinus: normal facial exam Mouth: oral mucosae normal Eyes General: appearance normal, both eyes and all related structures Eyelids: eyelids normal Pupils: PERRL EOM: EOM intact bilaterally Neck Neck: normal visual inspection Lymphatic: no lymphadenopathy noted Chest Chest: normal inspection of the chest Resp Effort & Inspection: normal respiratory effort and able to speak in complete sentences Auscultation: clear to auscultation bilaterally Cardio Rate: regular rate Rhythm: regular rhythm GI Inspection: normal to inspection Palpation: soft, no masses and nontender Auscultation: hypoactive bowel sounds Back/Spine/Pelvis Back: no CVA tenderness Skin General skin exam: no rashes or lesions noted Neuro General: other (can follow some commands) Motor: other (rigid extremities at baseline) Sensory Exam: no sensory deficits noted Extrem General: normal to inspection and full ROM Other: No significant pain with range of motion of bilateral upper or lower extremities. Psych Appearance: grossly normal Mental Status: mental status grossly normal Speech and Movement: speech and movement normal Affect: normal affect Thought Process: normal Results Labs Result diagrams: 02/02/22 11:06 02/02/22 11:06 Labs: Laboratory Results - last 24 hr 02/02/22 02/02/22 02/02/22 11:06 11:06 11:31 WBC 20.71 H RBC 4.22 L Hgb 13.4 L Hct 40.5 MCV 96 H MCH 31.8 MCHC 33.1 RDW 13.2 Plt Count 197 MPV 12.1 H Immature Gran % 0.6 Neutrophils % 88.5 Lymphocytes % 3.4 Monocytes % 7.3 Eosinophils % 0.0 Basophils % 0.2 Nucleated RBC % 0.0 Absolute Neutrophils 18.33 H Absolute Lymphocytes 0.70 L Absolute Monocytes 1.51 H Absolute Eosinophils 0.00 Absolute Basophils 0.04 Sodium 139 Potassium 4.3 Chloride 100 Carbon Dioxide 27.6 Anion Gap 11.4 H BUN 31 H Creatinine 2.3 H Estimated GFR/1.73 m2 27.57 Glucose 116 H Calcium 9.5 Magnesium 2.1 Total Bilirubin 1.6 H AST 40 H ALT 22 Alkaline Phosphatase 75 Troponin I 76 H* Total Protein 7.1 Albumin 3.8 Urine Color Urine Clarity Urine pH Ur Specific [place] Urine Protein Urine Ketones Urine Blood Urine Nitrite Urine Bilirubin Urine Urobilinogen Ur Leukocyte Esterase Urine Glucose COVID-19 Source Not Applicable SARS-CoV-2 (PCR) Negative Influenza Type A (PCR) Negative Influenza Type B (PCR) Negative RSV (PCR) Negative 02/02/22 14:00 WBC RBC Hgb Hct MCV MCH MCHC RDW Plt Count MPV Immature Gran % Neutrophils % Lymphocytes % Monocytes % Eosinophils % Basophils % Nucleated RBC % Absolute Neutrophils Absolute Lymphocytes Absolute Monocytes Absolute Eosinophils Absolute Basophils Sodium Potassium Chloride Carbon Dioxide Anion Gap BUN Creatinine Estimated GFR/1.73 m2 Glucose Calcium Magnesium Total Bilirubin AST ALT Alkaline Phosphatase Troponin I Total Protein Albumin Urine Color Yellow Urine Clarity Cloudy Urine pH 6.0 Ur Specific [place] 1.025 Urine Protein 30 H Urine Ketones Negative Urine Blood Large H Urine Nitrite Negative Urine Bilirubin Negative Urine Urobilinogen 0.2 Ur Leukocyte Esterase Negative Urine Glucose Negative COVID-19 Source SARS-CoV-2 (PCR) Influenza Type A (PCR) Influenza Type B (PCR) RSV (PCR) Last Vital Signs Temp 36.8 C 02/02/22 09:41 Pulse 95 H 02/02/22 09:41 Resp 22 02/02/22 09:52 BP 117/68 02/02/22 09:41 Pulse Ox 97 02/02/22 09:41
[2022-02-02 14:23] LABS: RBC >50 HPF (0-2)
[2022-02-02 14:24] LABS: C & S Indicated? No
[2022-02-02 14:40] LABS: Troponin I 448 ng/L (<or=60)
--- OUTSIDE RECORDS SUMMARY | 2022-02-02 16:12 | XMS_ITS | Encounter Summary ---
:1940 Author Organization [facility] [place] [address] Care Team Providers Name Role Phone Flavia Kuo MD Primary Care Provider Encounter Details Date Type Department Care Team Description 12/28/2018 Ancillary Procedure Radiology Library at [facility] [place] [place] [address] [id number] [phone] Social History Tobacco Use Types Packs/Day Years Used Date Never Assessed Sex Assigned at Date Recorded Not on file documented as of this encounter Plan of Treatment Not on filedocumented as of this encounter Procedures Procedure Name Priority Date/Time Associated Diagnosis Comme nts FILM LIBRARY Routine 12/28/2018 12:00 AM Results for this STORAGE ONLY MR EDT procedure ar e in SPINE the results section. documented in this encounter Results Film Library- Storage Only MR Spine (12/28/2018 12:00 AM EDT) Specimen (Source) Anatomical Location Collection Method / Collectio n Time Received Time / Laterality Volume Narrative MARJAN - 05/16/2020 4:53 PM EDT This exam is auto-finalizing. It's purpo se is for storage only. Flavia Kou MD [facility] [place] Performing Organization Address City/State/ZIP Code Phon e Number [place], [place] documented in this encounter Visit Diagnoses Not on filedocumented in this encounter Care Teams Telecommunications Field Technician Relationship Specialty Start Date End Date Flavia Kuo MD PCP - General 05/25/[address] [place] [id number] documented as of this encounter
--- OUTSIDE RECORDS SUMMARY | 2022-02-02 16:12 | XMS_ITS | Encounter Summary ---
:1940 Author Organization [facility] [place] [address] Care Team Providers Name Role Phone Flavia Kuo MD Primary Care Provider Encounter Details Date Type Department Care Team Description 07/31/2013 Ancillary Procedure Radiology Library at [facility] Ku[facility] [place] [facility] [address] [id number] [phone] Social History Tobacco Use Types Packs/Day Years Used Date Never Assessed Sex Assigned at Date Recorded Not on file documented as of this encounter Plan of Treatment Not on filedocumented as of this encounter Procedures Procedure Name Priority Date/Time Associated Diagnosis Comme nts FILM LIBRARY Routine 07/31/2013 12:00 AM Results for this STORAGE ONLY MR EST procedure ar e in HEAD the results section. documented in this encounter Results Film Library- Storage Only MR Head (07/31/2013 12:00 AM EST) Specimen (Source) Anatomical Location Collection Method / Collectio n Time Received Time / Laterality Volume Narrative MARJAN - 05/16/2020 4:58 PM EDT This exam is auto-finalizing. It's purpo se is for storage only. Flavia Kuo MD [facility] [place]M LIBRARY ORDERABLES Performing Organization Address City/State/ZIP Code Phon e Number [place], [place] documented in this encounter Visit Diagnoses Not on filedocumented in this encounter Care Teams Bus Transportation Manager Relationship Specialty Start Date End Date Flavia Kuo MD PCP - General 05/25/[address] [address] documented as of this encounter
--- OUTSIDE RECORDS SUMMARY | 2022-02-02 16:12 | XMS_ITS | Encounter Summary ---
:1940 Author Organization [facility] [place] [address] Care Team Providers Name Role Phone Beka Kuo MD Primary Care Provider Reason for Visit Consultation (Routine) - Closed Specialty Diagnoses / Procedures Referred By Contact Refer red To Contact Nephrology Diagnoses Renal Insufficiency Beka Kuo MD [facility] Nephrology [address] [facility] 1 [place], [place] [address] [place] [phone] Fax: Referral ID Status Reason Start Date Expiration Date Visits V isits Requested Authorized [id number] Closed Consult, Test 03/04/2016 03/04/2017 [facility] PCP Updated and/or Approved Encounter Details Date Type Department Care Team Description 04/30/2016 Office Visit Nephrology Deep Jeffery MD [facility] [place] [address] Renal cyst, acquired; Hypertension at [facility] Thompson Crawford MD [facility] [place] [address] CKD (chronic kidney disease) stage 3, GF R 30-59 ml/min; [facility] [place] [address] Social History Tobacco Use Types Packs/Day Years Used Date Never Assessed Sex Assigned at Date Recorded Not on file documented as of this encounter Last Filed Vital Signs Vital Sign Reading Time Taken Comments Blood Pressure 154/84 04/30/2016 10:19 AM EDT Pulse 56 04/30/2016 10:19 AM EDT Temperature 36.6 ??C (97.8 ??F) 04/30/2016 10:19 AM EDT Respiratory Rate 16 04/30/2016 10:19 AM EDT Oxygen Saturation 97% 04/30/2016 10:19 AM EDT Inhaled Oxygen Concentration - - Weight 99.1 kg (218 lb 6.4 oz) 04/30/2016 10:19 AM EDT Height - - Body Mass Index - - documented in this encounter Progress Notes Thompson Crawford MD - 04/30/2016 10:[address] [facility] Nephrology/Hypertension consult Bang Morrison [id number] 1940 HPI: 75 y.o. male with JEREMY, CKD, HTN paroxysmal A fib is referred by PCP to help evaluate and managea renal cyst found on an MRI done about 1 month back for Rt leg pain and numbness. Pt interviewed and examined in clinic. He does have any hx of kidney stones per pt but US report shows that he had bl stones. Has not used NSAIDs in past. Per note from PCP and pt himself reports that his systolic BP range is 110-130 and diastolic stays in 70-85 range. He does not have any active complaints today. PAST MEDICAL HX: As per HPI ROS: -no fever, chills, night sweats -no headache, blurring of vision, diplopia -no dysphagia, hearing problems -no chest pain, palpitation, no SANCHEZ, orthopnea -no cough or SOB -no abdominal pain, nausea, vomiting or diarrhea -no rash -no neuropathy -no LE swelling -no change in mood -no heat or cold intolerance Medications: Prior to Admission medications Medication Sig Start Date End Date Taking? Authorizing Provider hydrochlorothiazide (HYDRODIURIL) 25 mg tablet 25MG, PO, Once daily 07/09/05 No family history on file. No renal Hx Social Hx: No smoking No alcohol Allergies / ADRs: Allergies no known allergies PHYSICAL EXAM: Vitals: 04/30/16 1019 BP: 154/84 Pulse: 56 Resp: 16 Temp: 36.6 ??C (97.8 ??F) Gen - AAO x 3 in NAD Skin - No rash HEENT - Moist mucous membranes Chest: Lungs clear to auscultation, no wheezes/ rhonchi/ crackles. Heart - S1/S2 normal, no murmur, gallop, or rub. JVP not elevated. Abd - Soft. + BS. No bruit. Non tender. No organomegaly. Ext - Warm. No cyanosis. No dependent edema. Labs: Results for BANG MORRISON ( ) as of 05/05/2016 19:21 Ref. Range 04/30/2016 11:00 04/30/2016 11:47 WBC Latest Ref Range: 4.0 - 9.5 x10(3)/mcL 9.1 RBC Latest Ref Range: 4.58 - 5.54 x10(6)/mcL 4.56 (L) Hemoglobin Latest Ref Range: 13.7 - 16.5 gm/dL 14.1 Hematocrit Latest Ref Range: 40.5 - 48.5 % 42.4 MCV Latest Ref Range: 82.9 - 93.1 fL 93.0 MCH Latest Ref Range: 27.5 - 32.1 pg 30.9 MCHC Latest Ref Range: 32.0 - 35.7 gm/dL 33.3 RDWSD Latest Ref Range: 36.0 - 45.0 fL 41.7 RDWCV Latest Ref Range: 11.4 - 13.8 % 12.2 Platelets Latest Ref Range: 145 - 357 x10(3)/mcL 195 MPV Latest Ref Range: 7.6 - 12.9 fL 10.7 nRBC % Auto Latest Units: % 0.0 nRBC Abs Auto Latest Ref Range: 0.000 - 0.000 x10(3)/mcL 0.000 Neutr Abs (ANC) Latest Ref Range: 1.70 - 6.10 x10(3)/mcL 6.83 (H) Neutrophils % Latest Units: % 74.8 Immature Gran % Latest Units: % 0.20 Lymphocytes % Latest Units: % 15.1 Monocytes % Latest Units: % 8.6 Eosinophils % Latest Units: % 1.0 Basophils % Latest Units: % 0.3 Olimpia Gran Abs Latest Ref Range: 0.00 - 0.04 x10(3)/mcL 0.02 Lymphocytes Abs Latest Ref Range: 0.9 - 3.2 x10(3)/mcL 1.4 Monocyte Abs Latest Ref Range: 0.3 - 0.9 x10(3)/mcL 0.8 Eosinophils Abs Latest Ref Range: 0.0 - 0.4 x10(3)/mcL 0.1 Basophils Abs Latest Ref Range: 0.0 - 0.1 x10(3)/mcL 0.0 Sodium Latest Ref Range: 135 - 145 mmol/L 140 Potassium Latest Ref Range: 3.5 - 5.0 mmol/L 3.8 Chloride Latest Ref Range: 98 - 107 mmol/L 97 (L) CO2 Latest Ref Range: 22 - 31 mmol/L 27 Anion Gap Latest Ref Range: 5 - 15 mmol/L 16 (H) BUN Latest Ref Range: 10 - 20 mg/dL 21 (H) Creatinine Latest Ref Range: 0.80 - 1.50 mg/dL 1.83 (H) Estimated GFR Latest Ref Range: >=60 36 (L) Glucose Lvl Latest Ref Range: 65 - 199 mg/dL 81 Calcium Latest Ref Range: 8.5 - 10.5 mg/dL 9.7 Phosphorus Latest Ref Range: 2.5 - 4.5 mg/dL 2.9 U Protein Ran Latest Ref Range: 0 - 12 mg/dL <6 Prot/Cre Ratio Latest Units: ratio <0.1 U Creatinine Latest Units: mg/dL 96 Impression/ Plan: 75 y.o. male with JEREMY, CKD( creatinine was 2 per note from PCP on 02/19/2016), HTN paroxysmal A fib is referred by PCP to help evaluate and manage a calcified right sided renal cyst about 8.9 cm and another one on left side of 5.7 cm size. Plan: CKD secondary to stones and HTN? : Bmp today showed stable improving creatinine. 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 Asked to check it daily. Avoid salt. Proteinuria: well controlled Bone disease : Ca and phosphorous in normal range 4-5 months fu Will look at urine when available Pt unable to give urine sample today Seen and Discussed w/ Dr. Jeffery Contact [phone] I called pt and updated him about lab work up and plan for next appointment. BEKA KOU MD [address] [place] [address] Thompson Crawford MD Nephrology Fellow Pager # [phone] Deep Jeffery MD - 04/30/2016 10:30 AM EDT Renal Staff Addendum Patient seen and examined with Dr. Crawford. I agree with the above note which represents our joint assessment and plan with the following additions: Stage 3 CKD. Cr was 1.5 in 2009 and has been 1.6-2 over the past two years. Large bilateral renal cysts seen on CT scan, confirmed to be simple cysts on US. He has large cysts but few in number and thekidneys themselves are not enlarged; this is not the picture of polycystic kidney disease. His primary risk factor appears to be hypertension. BP is elevated in clinic today but well controlled at home. No proteinuria, anemia, hyperphosphatemia, acidosis. The cysts themselves do not require specific followup. There is a chance that a cyst could become infected or spontaneously rupture. If he developsunexplained fevers and flank pain, would consider cyst infection even if urine cultures are negative. Cyst rupture is typically characterized by acute flank pain similar to a kidney stone and can sometimes cause hematuria. Symptoms typically resolve with conservative management. - continue current medications - f/u 6 months to monitor renal function and blood pressure documented in this encounter Plan of Treatment Not on filedocumented as of this encounter Procedures Procedure Name Priority Date/Time Associated Comments Diagnosis HEMOGRAM Routine 04/30/2016 11:47 AM Renal cyst, Results for this EDT acquired procedure are i n the results section. DIFFERENTIAL, Routine 04/30/2016 11:47 AM Renal cyst, Results for this AUTOMATED EDT acquired procedure are i n the results section. CBC (WITH DIFF) Routine 04/30/2016 11:47 AM Renal cyst, EDT acquired PHOSPHORUS Routine 04/30/2016 11:47 AM Renal cyst, Results for this EDT acquired procedure are i n the results section. BASIC METABOLIC Routine 04/30/2016 11:47 AM Renal cyst, Resul ts for this PANEL (NON-FASTING) EDT acquired procedur e are in the results section. PROTEIN/CREATININE Routine 04/30/2016 11:00 AM Renal cyst, Re sults for this RATIO, URINE EDT acquired procedure are i n the results section. documented in this encounter Results (ABNORMAL) Differential, Automated (04/30/2016 11:47 AM EDT) [facility] Method Time Signature Neutrophils % 74.8 % [facility] Neutr Abs (ANC) 6.83 (H) 1.70 - [facility] 6.10 [facility] x10(3)/[facility] LABORATORY Lymphocytes % 15.1 % [facility] Lymphocytes Abs 1.4 0.9 - 3.2 [facility] x10(3)/[facility] LABORATORY Monocytes % 8.6 % [facility] Monocyte Abs 0.8 0.3 - 0.9 [facility] x10(3)/[facility] LABORATORY Eosinophils % 1.0 % [facility] Eosinophils Abs 0.1 0.0 - 0.4 [facility] x10(3)/[facility] LABORATORY Basophils % 0.3 % [facility] Basophils Abs 0.0 0.0 - 0.1 [facility] x10(3)/[facility] LABORATORY Immature Gran % 0.20 % [facility] Comment: Immature granulocytes(IG's)percentage an d absolute count will include metamyelocytes, myelocytes, and promyelo cytes. Blood smears from CBCs yielding IG's will be scanned manually for concor dance. If this scan disagrees with the automated IG or if promyelocytes are not ed, a manual differential will be performed. Olimpia Gran Abs 0.02 0.00 - 0.04 x10(3)/mcL [facility] Specimen Anatomical Collection Method Collection Time Receive d Time (Source) Location / / Volume Laterality Blood specimen 04/30/2016 11:47 6 (specimen) AM EDT 11:56 AM EDT Resulting Agency Comment Spec In Lab Deep Jeffery MD HEMATOLOGY ORDERABLES Performing Organization Address City/State/ZIP [place] [address] (ABNORMAL) Hemogram (04/30/2016 11:47 AM EDT) Analysis Performed At Patho logist Time Signature WBC 9.1 4.0 - 9.5 [facility] x[facility](3[facility] LABORATORY RBC 4.56 (L) 4.58 - ALEKS SHANNONVIKI 5.54 [facility] x10(6)/[facility] LABORATORY Hemoglobin 14.1 13.7 - ALEKS VIKI 16.5 gm/dL [facility] Hematocrit 42.4 40.5 - A[place] VIKI 48.5 % [facility] MCV 93.0 82.9 - A[place] VIKI 93.1 [facility] LABORATORY MCH 30.9 27.5 - ALEKS VIKI 32.1 pg [facility] MCHC 33.3 32.0 - ALEKS VIKI 35.7 gm/dL [facility] Platelets 195 145 - 357 [facility] x10(3)/[facility] LABORATORY RDWSD 41.7 36.0 - ALEKS VIKI 45.0 [facility] LABORATORY RDWCV 12.2 11.4 - ALEKS VIKI 13.8 % [facility] MPV 10.7 7.6 - 12.9 [facility] nRBC % Auto 0.0 % [facility] nRBC Abs Auto 0.000 0.000 - ALEKS VIKI 0.000 [facility] x10(3)/[facility] LABORATORY Specimen Anatomical Collection Method Collection Time Receive d Time (Source) Location / / Volume Laterality Blood specimen 04/30/2016 11:47 6 (specimen) AM EDT 11:56 AM EDT Resulting Agency Comment Spec In Lab Deep Jeffery MD HEMATOLOGY ORDERABLES Performing Organization Address City/State/[place] [address] Phosphorus (04/30/2016 11:47 AM EDT) P athologist Signature Phosphorus 2.9 2.5 - 4.5 ALEKS VIKI mg/dL [facility] Specimen Anatomical Collection Method Collection Time Receive d Time (Source) Location / / Volume Laterality Blood specimen 04/30/2016 11:47 6 (specimen) AM EDT 11:56 AM EDT Resulting Agency Comment Spec In Lab Deep Jeffery MD CHEMISTRY ORDERABLES Performing Organization Address City/State/ZIP [place] [address] (ABNORMAL) Basic Metabolic Panel (non-fasting) (04/30/2016 11:47 AM EDT) athologist Signature Glucose Lvl 81 65 - 199 [facility] mg/dL [facility] Comment: Diabetes: >=200 mg/dL plus symp toms BUN 21 (H) 10 - 20 mg/dL [facility] Creatinine 1.83 (H) 0.80 - 1.50 mg/dL [facility] Comment: Please note that the pediatric reference intervals supplied above were not validated at [facility]. Results from pediatri c patients should be interpreted in conjunction to the patient's age, height and muscle mass. Sodium 140 135 - 145 mmol/L [facility] Potassium 3.8 3.5 - 5.0 mmol/L [facility] Comment: Please note: ??Patients with WBC >100,00 0 may have falsely elevated Potassium levels. ??For accurate Potassium quantif ication in these patients send serum separator tube (gold top) for subsequent determinations. ??Contact the Clinical Chemistry Laboratory if there are any qu estions. Chloride 97 (L) 98 - 107 mmol/L [facility] CO2 27 22 - 31 mmol/L [facility] Anion Gap 16 (H) 5 - 15 mmol/L [facility] Calcium 9.7 8.5 - 10.5 mg/dL [facility] Estimated GFR 36 (L) >=60 [facility] Comment: This estimated GFR (eGFR) value was calc ulated using the MDRD equation which has been validated on patients between t he ages of 18 and 70. The MDRD should not be used to assess kidney function in patients < 18 years of age or in patients with extremes of body mass, or in patients with acute kidney failure. This value should be multiplied by 1.2 f or patients. For further information please copy and past e the following links into your internet browser. [email or web address] [email or web address] Specimen Anatomical Collection Method Collection Time Receive d Time (Source) Location / / Volume Laterality Blood specimen 04/30/2016 11:47 6 (specimen) AM EDT 11:56 AM EDT Resulting Agency Comment Spec In Lab Deep Jeffery MD CHEMISTRY ORDERABLES Performing Organization Address City/State/ZIP Code Phon e Number [address] Protein/Creatinine Ratio, urine (04/30/2016 11:00 AM EDT) P athologist Signature U Creatinine 96 mg/dL [facility] U Protein Ran <6 0 - 12 [facility] mg/dL [facility] Prot/Cre Ratio <0.1 ratio [facility] Specimen Anatomical Collection Method Collection Time Receive d Time (Source) Location / / Volume Laterality Urine specimen 04/30/2016 11:00 6 (specimen) AM EDT 12:04 PM EDT Resulting Agency Comment Spec In Lab Deep Jeffery MD URINE ORDERABLES Performing Organization Address City/State/[place] [address] documented in this encounter Visit Diagnoses Diagnosis Renal cyst, acquired Acquired cyst of kidney CKD (chronic kidney disease) stage 3, GF R 30-59 ml/min Chronic kidney disease, Stage III (moder ate) Essential hypertension Unspecified essential hypertension documented in this encounter Care Teams Trademark Affixer Relationship Specialty Start Date End Date Beka Kuo MD PCP - General 05/25/13 [address] [place] [address] documented as of this encounter
--- OUTSIDE RECORDS SUMMARY | 2022-02-02 16:12 | XMS_ITS | Encounter Summary ---
:1940 Author Organization [facility] [place] [address] Care Team Providers Name Role Phone Flavia Kuo MD Primary Care Provider Reason for Visit Consultation (Routine) - Specialty Diagnoses / Procedures Referred By Contact Refer red To Contact Neurology Diagnoses Parkinson's disease 2nd opinion Flavia Kuo MD [facility] Neurology [address]c [address] [place], [place] [address] [address] [place] [address] Fax: Referral ID Status Reason Start Date Expiration Date Visits V isits Requested Authorized [id number] Consult, Test 03/18/2020 09/18/2020 6 6 & Treat PCP Updated and/or Approved Encounter Details Date Type Department Care Team Description 07/21/2020 Office Visit Neurology at [facility] Trinidad Anglin Parkinson's disease [facility] [place] [address] [place], [place] [address] (Wo rk) Social History Tobacco Use Types Packs/Day Years Used Date Never Smoker Smokeless Tobacco: Never Used Alcohol Use Standard Drinks/Week Comments Yes 0 (1 standard drink = 0.6 oz pure alcoho l) occasional beer Alcohol Habits Answer Date Recorded How often do you have a drink containing alcohol? Not asked How many drinks containing alcohol do you have on a Not aske d typical day when you are drinking? How often do you have six or more drinks on one Not asked occasion? Comment: occasional beer 07/21/2020 Sex Assigned at Date Recorded Not on file documented as of this encounter Last Filed Vital Signs Vital Sign Reading Time Taken Comments Blood Pressure 134/78 07/21/2020 1:39 PM EST Pulse 50 07/21/2020 1:39 PM EST Temperature - - Respiratory Rate - - Oxygen Saturation - - Inhaled Oxygen Concentration - - Weight 92.1 kg (203 lb) 07/21/2020 1:39 PM EST Height 182.9 cm (6') 07/21/2020 1:39 PM EST Body Mass Index 27.53 07/21/2020 1:39 PM EST documented in this encounter Patient Instructions Patient InstructionsThTrinidad mcnamara MD - 07/21/2020 2:00 PM EST Carbidopa/levodopa 1.5 tabs four times daily for one week then increase to 2 tabs four times daily Other medications we could consider adding on - amantadine - selegiline documented in this encounter Progress Notes Trinidad Anglin MD - 07/21/2020 2:00 PM EST [facility] Movement Disorders New Patient Evaluation Date of service 07/21/2020 Referring provider Flavia Kuo MD [address] [place] [address] Cc: falls, second opinion on PD History of present illness Bang Morrison is a 79 y.o. right handed man who presents to the movement disorders clinic for evaluation of parkinsonism. He has been following with Dr. Franks with impression of parkinsonism (PSP). He is here with his DIL today. History of Parkinson related symptoms Initial symptom: right side tremor in about 2014, frequent fals Progression of other motor symptoms: speech changes, many falls, , he feels like his legs give out worsening over three years, also dizziness (more issues mid morning), difficulty reading Gait: see above Smell: hyposmia Constipation: yes Sleep: active in sleep Cognition: denies issues, hasn't driven in a few months Mood: stable Voice: stuttering speech worse when tired or nervous, softer voice Handwriting: shaky Current PD meds: CL 1 tab QID Dyskinesias: no Wearing off: no Past tried PD meds: none Biggest PD related complaint: Past imaging (MR, CT or Haylee): MR spine Past surgical treatments for PD: none Family history of PD: cousins had PD (two of them) Past exposures: nothing major Education/work history: retired commercial truck driver Exercise: not much Patient Active Problem List Diagnosis Code ??? Parkinson's disease G20 Current Outpatient Medications: ??? Eliquis 5 mg Tablet, TAKE 1 TABLET BY MOUTH TWICE DAILY, Disp: , Rfl: ??? docusate sodium (Colace) 100 mg Capsule, 3 times daily., Disp: , Rfl: ??? atorvastatin (Lipitor) 40 mg Tablet, TK 1 T PO D, Disp: , Rfl: ??? verapamiL SR (Calan-SR) 180 mg Tablet Sustained Release, TK 1 T PO D, Disp: , Rfl: ??? nitroGLYcerin (Nitrostat) 0.4 mg Tablet, Sublingual, Once, Disp: , Rfl: ??? carbidopa-levodopa (Sinemet) 25-100 mg Tablet, Take 2 tablets by mouth 4 times daily., Disp: 240tablet, Rfl: 11 ??? hydrochlorothiazide (HYDRODIURIL) 25 mg tablet, 25MG, PO, Once daily (Patient taking differently: Take 12.5 mg by mouth.), Disp: , Rfl: Past Medical History: Diagnosis Date ??? Atrial fibrillation ??? Hyperlipidemia ??? Hypertension Past Surgical History: Procedure Laterality Date ??? SALIVARY GLAND SURGERY Social History: , retired service station helper Family History Problem Relation Age of Onset ??? Parkinsonism Cousin ??? Parkinsonism Cousin ??? Multiple Sclerosis Cousin Review of Systems - All others negative except as per HPI Physical Exam Patient Vitals for the past 24 hrs: Pulse BP 07/21/20 1339 50 134/78 General: the patient appears stated age, not in any acute distress, well groomed, Body mass index is27.53 kg/m??. HEENT: normal cephalic atraumatic, eye conjunctiva moist with no abnormal discharge, no abnormal nasal discharge Voice/language: no vocal tremor or dysarthria. Normal fluency and comprehension Skin: no lesions or abrasions on exposed surfaces Neck: full ROM Extremities: right shoulder limited ROM and abductor weakness Mental status: oriented to place, self, date and reason for visit Cranial Nerves: III, IV, : EOMI, normal saccades and pursuit, slow in vertical on OKN VII: face symmetrical to voluntary movements and expressions VIII: hearing impaired in conversation Strength: Full and symmetric throughout Coordination: Finger to nose: normal Gait: Pushes up to standing, normal base and stance, asymmetry to shoulders and no arm swing Additional movement disorder specific findings: Movement Disorder Society - Unified Parkinson's Disease Rating Scale Part IB: Non-Motor Aspects of Experience of Daily Living (nM-EDL) MDS-UPDRS: nM-EDL Part 1B 07/21/2020 Completing Questionnaire Patient Sleep Problems No Daytime Sleepiness No Pain & Other Sensations Moderate Urinary Problems No Constipation Problems Mild Light Headedness on Standing Severe Fatigue No Part II: Motor Aspects of Experiences of Daily Living (M-EDL) MDS-UPDRS:M-EDL Part II 07/21/2020 Speech Moderate Saliva & Drooling Severe Chewing & Swallowing No Eating Tasks Moderate Dressing Mild Hygiene Moderate Handwriting Severe Doing Hobbies & Other Activities Moderate Turning in bed Mild Tremor Moderate Getting out of bed, a car, or a deep chair Moderate Walking & Balance Moderate Freezing Moderate Medication Status for Treating the Symptoms of Parkinson's Disease Part lll: Motor Examination Speech: 2 - Mild: Loss of modulation, diction, or volume, with a few words unclear, but the overall sentences easy to follow. Facial Expression: 2 - Mild: In addition to decreased eye-blink frequency, Masked facies present in the lower face as well, namely fewer movements around the mouth, such as less spontaneous smiling, but lips not parted. Rigidity - Neck: 2 - Mild: Rigidity detected without the activation maneuver, but full range of motion is easily achieved. Rigidity - RUE: 3 - Moderate: Rigidity detected without the activation maneuver, full range of motion is achieved with effort. Rigidity - LUE: 2 - Mild: Rigidity detected without the activation maneuver, but full range of motion is easily achieved. Rigidity - RLE: 2 - Mild: Rigidity detected without the activation maneuver, but full range of motion is easily achieved. Rigidity - LLE: 2 - Mild: Rigidity detected without the activation maneuver, but full range of motion is easily achieved. Finger tapping -Right hand: 3 - Moderate: Any of the following: a) more than 5 interruptions during tapping or at least one longer arrest (freeze) in ongoing movement b) moderate slowing c) the amplitude decrements starting after the 1st tap. Finger tapping -Left hand: 2 - Mild: Any of the following: a) 3 to 5 interruptions during tapping b)mild slowing c) the amplitude decrements midway in the 10-tap sequence. Hand movements - Right hand: 3 - Moderate: Any of the following: a) more than 5 interruptions duringthe movement or at least one longer arrest (freeze) in ongoing movement, b) moderate slowing, c) theamplitude decrements starting after the 1st ulxn-mry-yhkro sequence. Hand movements - Left hand: 3 - Moderate: Any of the following: a) more than 5 interruptions during the movement or at least one longer arrest (freeze) in ongoing movement, b) moderate slowing, c) the amplitude decrements starting after the 1st [id number] sequence. Pronation-supination movements- Right hand: 2 - Mild: Any of the following: a) 3 to 5 interruptions during the movements b) mild slowing c) the amplitude decrements midway in the sequence. Pronation-supination movements- Left hand: 2 - Mild: Any of the following: a) 3 to 5 interruptions during the movements b) mild slowing c) the amplitude decrements midway in the sequence. Toe tapping- Right foot: 1 - Slight: Any of the following: a) the regular rhythm is broken with one or two interruptions or hesitations of the tapping movement b) slight slowing c) amplitude decrementsnear the end of the ten taps. Toe tapping- Left foot: 0 - Normal: No problem. Leg agility - Right le - Slight: Any of the following: a) the regular rhythm is broken with one or two interruptions or hesitations of the movement b) slight slowing c) amplitude decrements near the end of the task. Leg agility - Left le - Slight: Any of the following: a) the regular rhythm is broken with one or two interruptions or hesitations of the movement b) slight slowing c) amplitude decrements near theend of the task. Arising from chair: 2 - Mild: Pushes self up from arms of chair without difficulty. Gait: 1 - Slight: Independent walking with minor gait impairment. Freezing of gait: 0 - Normal: No freezing. Postural stability: 1 - Slight: 3-5 steps, but subject recovers unaided. Posture: 2 - Mild: Definite flexion, scoliosis or leaning to one side, but patient can correct posture to normal posture when asked to do so. Global spontaneity of movement: 2 - Mild: Mild global slowness and poverty of spontaneous movements. Postural tremor - Right hand: 0 - Normal: No tremor. Postural tremor - Left hand: 0 - Normal: No tremor. Kinetic tremor - Right hand: 0 - Normal: No tremor. Kinetic tremor - Left hand: 0 - Normal: No tremor. Rest tremor amplitude - RUE: 1 - Slight: < or equal to 1 cm in maximal amplitude. Rest tremor amplitude - LUE: 1 - Slight: < or equal to 1 cm in maximal amplitude. Rest tremor amplitude - RLE: 0 - Normal: No tremor. Rest tremor amplitude - LLE: 0 - Normal: No tremor. Rest tremor amplitude - Lip/jaw: 0 - Normal: No tremor. Constancy of rest tremor: 1 - Slight: Tremor at rest is present . 25% of the entire examination period. MDS-UPDRS Part III - Motor Exam Score: 44 Review of available labs and imaging: MRI cervical spine with degenerative changes and severe neural foraminal narrowing at right C7/T1 not correlating to his current symptoms. Lumbar spine with degenerative changes Assessment: ICD-10-CM 1. Parkinson's disease G20 He has right > left side rest and postural tremor, R>L bradykinesia and bilateral moderate rigidity. 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 Early frequent falls and difficulty reading have been red flags f or PSP. He has some stuttering seech under stress but otherwise no major cognitive complaints. On exam he has intact extraocular movements but OKN strip testing has some slowing. We discussed that we will continue to monitor over time for further clarification. We discussed that the next step in his management would be to try a higher dose of sinemet. He will go up gradually to 2 tabs QID. If that does not work we could try adding on amantadine or selegiline.I am wondering if his description of his leg not working is freezing rather than weakness. Strength testing today was normal (except right shoulder where he has abductor weakness and is seeing ortho next month). Plan: - increase carbidopa/levodopa 25/100mg to 1.5 tabs QID for one week then up to 2 tabs QID - could consider adding on selegiline or amantadine - If med adjustments help him then he will continue to follow with just Dr. Franks, if this initial adjustment does not help then I may need to re- evaluate him Trinidad Anglin MD [facility] Neurology-Movement Disorders documented in this encounter Plan of Treatment Not on filedocumented as of this encounter Visit Diagnoses Diagnosis Parkinson's disease Paralysis agitans documented in this encounter Care Teams Photoengraving Apprentice Relationship Specialty Start Date End Date Flavia Kuo MD PCP - General 05/25/[address] [place] [address] documented as of this encounter
--- OUTSIDE RECORDS SUMMARY | 2022-02-02 16:12 | XMS_ITS | Encounter Summary ---
:1940 Author Organization [facility] [place] [address] Care Team Providers Name Role Phone Flavia Kuo MD Primary Care Provider Reason for Visit Reason Onset Date Comments Appointment 07/15/2021 Encounter Details Date Type Department Care Team Description 07/15/2021 Telephone Endocrinology at [facility] [place] [address] Social History Tobacco Use Types Packs/Day [...] on file documented as of this encounter Miscellaneous Notes Telephone Encounter - Soila Singh I - 07/15/2021 9:19 AM EST Unable to contact patient to schedule from referral. Letter sent and referral closed documented in this encounter Plan of Treatment Not on filedocumented as of this encounter Visit Diagnoses Not on filedocumented in this encounter Care Teams Orthotist/Prosthetist Relationship Specialty Start Date End Date Flavia Kuo MD PCP - General 05/25/[address] [place] [address] documented as of this encounter
--- OUTSIDE RECORDS SUMMARY | 2022-02-02 16:12 | XMS_ITS | Encounter Summary ---
:1940 Author Organization [facility] [address] Care Team Providers Name Role Phone Flavia Kuo MD Primary Care Provider Reason for Visit Reason Onset Date Comments Other 07/16/2020 code Encounter Details Date Type Department Care Team Description 07/16/2020 Telephone Neurology at [facility] Trinidad Anglin MD Other (code) [facility] [place] [address] [place] [address] [phone] (Wo rk) Social History Tobacco Use Types Packs/Day Years Used Date Never Assessed Sex Assigned at Date Recorded Not on file documented as of this encounter Miscellaneous Notes Telephone Encounter - Kavitha Whatley CMA - 07/16/2020 10:40 AM EST [place]ette given code to join pt for appt, aware that he may only have 1 person come with him to appt Telephone Encounter - Vidya Munoz - 07/16/2020 9:26 AM EST Call Center / [place] Message - General Issue Call Provider patient sees in Clinic: Derrek Caller and relationship (if other than patient-full name): daughter in law-Linnette Call back number: [phone] Ok to leave a message: y Reason for call: please send a code because pt needs assistance for his appointment Disposition of Call (choose one and remove others): ??? Red Arrow Message Reason red arrow Message: x ??? Routine Message sent to the Nurse: y ??? Routine message sent to [place]: n documented in this encounter Plan of Treatment Not on filedocumented as of this encounter Visit Diagnoses Not on filedocumented in this encounter Care Teams Personal Injury Specialist Relationship Specialty Start Date End Date Flavia Kuo MD PCP - General 05/25/[address] [place] [address] [address] [place] [address] documented as of this encounter
--- OUTSIDE RECORDS SUMMARY | 2022-02-02 16:12 | XMS_ITS | Clinical Summary ---
:1940 Author Organization [facility] [place] [address] Care Team Providers Name Role Phone Flavia Kuo MD Primary Care Provider Allergies No known active allergies Medications Medication Sig Dispensed Refills Start Date End Date Status hydrochlorothiazide 25MG, PO, 0 07/09/2005 Active (HYDRODIURIL) 25 mg tablet Once daily Eliquis 5 mg Tablet TAKE 1 TABLET 0 06/28/2020 Active BY MOUTH TWICE DAILY docusate sodium (Colace) 3 times 0 11/21/2015 Active 100 mg Capsule daily. atorvastatin (Lipitor) 40 TK 1 T PO D 0 06/13/2020 Active mg Tablet verapamiL SR (Calan-SR) TK 1 T PO D 0 04/30/2020 Active 180 mg Tablet Sustained Release nitroGLYcerin (Nitrostat) Once 0 10/23/2015 Active 0.4 mg Tablet, Sublingual carbidopa-levodopa Take 2 240 tablet 11 07/21/2020 Active (Sinemet) 25-100 mg Tablet tablets by mouth 4 times daily. Active Problems Problem Noted Date Parkinson's disease 07/21/2020 Immunizations Name Administration Dates Next Due Pneumococcal Polyvalent 23 02/03/2004 Td, adult 02/03/2004 Family History Medical History Relation Comments Parkinsonism Cousin 1 Parkinsonism Cousin 2 Multiple Sclerosis Cousin 3 Relation Status Comments Cousin 1 Cousin 2 Cousin 3 Social History Tobacco Use Types Packs/Day Years [...] Assigned at Date Recorded Not on file Last Filed Vital Signs Vital Sign Reading Time Taken Comments Blood Pressure 134/78 07/21/2020 1:39 PM EST Pulse 50 07/21/2020 1:39 PM EST Temperature 36.6 ??C (97.8 ??F) 04/30/2016 10:19 AM EDT Respiratory Rate 16 04/30/2016 10:19 AM EDT Oxygen Saturation 97% 04/30/2016 10:19 AM EDT Inhaled Oxygen Concentration - - Weight 92.1 kg (203 lb) 07/21/2020 1:39 PM EST Height 182.9 cm (6') 07/21/2020 1:39 PM EST Body Mass Index 27.53 07/21/2020 1:39 PM EST Plan of Treatment Health Maintenance Due Date Last Done Comments Covid-19 Vaccine (#1) 11/20/1945 Hepatitis C Screening 1960 Tdap adult 1961 Zoster vaccine (1 of 2) 1992 Advance Directive 1997 Pneumoccocal Vaccine: 65+ (1 - PCV) 11/20/2007 02/03/2004 Tetanus vaccine 02/02/2014 02/03/2004 Influenza (Flu) vaccine (1 of 1 - Influenza standard 03/25/2022 series) Insurance Payer Benefit Plan / Subscriber ID Effective Phone Address T ype Group Dates MEDICARE MEDICARE PART A [id number] 2007-Nabeel [phone] [facility] [place] [address] AARP SUPPLEMENT AARP SUPPLEMENT [id number] 2015-Nabeel [id number] [place] [address] Care Teams Printing Manager Relationship Specialty Start Date End Date Flavia Kuo MD PCP - General 05/25/[address] [place], [place] [id number] (work)
--- OUTSIDE RECORDS SUMMARY | 2022-02-02 16:12 | XMS_ITS | Encounter Summary ---
:1940 [place] [address] Care Team Providers Name Role Phone Flavia Kuo MD Primary Care Provider Encounter Details Date Type Department Care Team Description 03/02/2016 Hospital Encounter Radiology Library at [facility] [address] [address] [place] [address] [phone] (Wo rk) Social History Tobacco Use Types Packs/Day Years Used Date Never Assessed Sex Assigned at Date Recorded Not on file documented as of this encounter Medications at Time of Discharge Medication Sig Dispensed Refills Start Date End Date docusate sodium (Colace) 100 mg 3 times daily. 0 11/21/2015 Capsule nitroGLYcerin (Nitrostat) 0.4 Once 0 2015 mg Tablet, Sublingual hydrochlorothiazide 25MG, PO, Once 0 07/09/2005 (HYDRODIURIL) 25 mg tablet daily documented as of this encounter Plan of Treatment Not on filedocumented as of this encounter Procedures Procedure Name Priority Date/Time Associated Diagnosis Comme nts FILM LIBRARY Routine 03/02/2016 12:00 AM Pain Results for this STORAGE ONLY CT EDT procedure ar e in ABDOMEN AND PELVIS the resul ts section. documented in this encounter Results Film Library- Storage Only CT Abdomen & Pelvis (03/02/2016 12:00 AM EDT) Specimen (Source) Anatomical Location Collection Method / Collectio n Time Received Time / Laterality Volume Narrative RAD - 03/04/2016 10:18 AM EDT This exam is for storage only and is aut o-finalizing. Flavia Kuo MD IMG FILM LIBRARY ORDERABLES Performing Organization Address City/State/ZIP Code Phon e Number RAD [place], [place] documented in this encounter Visit Diagnoses Diagnosis Pain Generalized pain documented in this encounter Care Teams Lockstitch Waistline Joiner Relationship Specialty Start Date End Date Flavia Kuo MD PCP - General 05/25/[address] [place] [address] documented as of this encounter
--- OUTSIDE RECORDS SUMMARY | 2022-02-02 16:13 | XMS_ITS | Encounter Summary ---
:1940 Author Organization [facility] Address [address] [place] [address] Care Team Providers Name Role Phone Pedro Bermudez MD Primary Care Provider Unavailable Encounter Details Date Type Department Care Team Description 11/16/2021 Lab Requisition [facility] Outr Resulting Lab, Pathology & Laboratory Provider [facility] [address] [place], [place] [id number] Social History Tobacco Use Types Packs/Day Years Used Date Never Assessed Sex Assigned at Date Recorded Not on file documented as of this encounter Plan of Treatment Not on filedocumented as of this encounter Procedures Procedure Name Priority Date/Time Associated Comments Diagnosis BETA HYDROXYBUTYRATE Routine 11/16/2021 8:25 Resu lts for this EDT procedure are i n the results section. INSULIN Routine 11/16/2021 8:25 Results for this EDT procedure are i n the results section. documented in this encounter Results BETA HYDROXYBUTYRATE (11/16/2021 8:25 EDT) Pathologist Sig nature Beta Hydroxybutyrate 0.2 <0.4 mmol/L [facility] Specimen Blood - Venous blood (substance) Performing Organization Address City/[facility]/ZIP [place] [facility] Phon e Number [facility] [address] [place] [address] SERVICES INSULIN (11/16/2021 8:25 EDT) Pathologist Sig nature Insulin 12.7 <29.0 uIU/mL [facility] Comment: LABORATORY SERVICES Displayed Reference Range applies to fasting specimens only. Specimen Blood - Venous blood (substance) Performing Organization Address [facility] Phon e Number [facility] [address] [place] [address] SERVICES documented in this encounter Visit Diagnoses Not on filedocumented in this encounter Care Teams Project Manager/Design Manager Relationship Specialty Start Date End Date Pedro Bermudez MD PCP - General 05/30/15 documented as of this encounter
--- OUTSIDE RECORDS SUMMARY | 2022-02-02 16:13 | XMS_ITS | Encounter Summary ---
:1940 Author Organization [facility] Address [address] [place] [address] Care Team Providers Name Role Phone Unavailable Primary Care Provider Unavailable Encounter Details Date Type Department Care Team Description 07/15/2005 Results Only [facility] - Mikel Gaston MD [address] [place] [address] [place], [place] [id number] [phone] Social History Tobacco Use Types Packs/Day Years Used Date Never Assessed Sex Assigned at Date Recorded Not on file documented as of this encounter Plan of Treatment Not on filedocumented as of this encounter Procedures Procedure Name Priority Date/Time Associated Diagnosis Comme [facility] SURGICAL PATHOLOGY Routine 07/15/2005 0:00 EST Re sults for this procedure are i n the results section. documented in this encounter Results SURGICAL PATHOLOGY (07/15/2005 0:00 EST) Pathology Report: SURGICAL PATHOLOGY REPORT TISH SOLIZ Reports generated via electronic interface contain mekhi ginal data; LAB however they are lacking the format of the original re port. Caution should be taken when reading/interpreting unfo rmatted reports. Name: ? BANG MORRISON ? Accession #: ? [id number] ? : ? 1940 (Age: 64) ??M ? Collect Date: ? 07/15/2005 ? Location: ? [facility] ? Receive Date: ? 005 ? Provider: MIKEL HILL MD Copy to: LEDY SU MD ? Final Pathologic Diagnosis: ? Submandibular gland, left, biopsy: - Chronic sialadenitis. Document reviewed and electronically signed by: Ceasar Winston MD Report ??Date: 07/21/2005 15:50 By the signature above, the attending physician certif ies that he/she has personally conducted a gross and/or microscopic examin ation of the described specimens and rendered or confirmed the above diagnosi s. Specimen(s) Received: ? Submandibular gland (Lt) Clinical History: ? L submandibular gland sialadenitis, chronic rec urrence Gross Description: ? Received in formalin labelled Neveu and Lt submandibular gland bx is a kirk-pink nodular and rubbery smooth fragment of soft t issue that weighs 3.86 grams and measures 3.5 x 2.0 x 1.4 cm. ??The specimen is inked and serially sectioned revealing a homogeneous kirk-pi nk and rubbery cut surface. ??Entirely submitted as (A1) to (A5). ??(Dr. Martínez)/[facility] End of Report Specimen Performing Organization Address City/State/ZIP Code Phon e Number [facility] [address] [place] [address] SERVICES [facility] [address] [place] [address] documented in this encounter Visit Diagnoses Not on filedocumented in this encounter
--- OUTSIDE RECORDS SUMMARY | 2022-02-02 16:13 | XMS_ITS | Clinical Summary ---
:1940 Author Organization [facility] Address [address] [place] [address] Care Team Providers Name Role Phone Pedro Bermudez MD Primary Care Provider Unavailable Encounters Date Type Specialty Care Team Description 11/16/2021 Lab Requisition Clinical Laboratory Outr Resulting Lab , Provider from Last 3 Months Social History Tobacco Use Types Packs/Day Years Used Date Never Assessed Sex Assigned at Date Recorded Not on file Plan of Treatment Health Maintenance Due Date Last Done Comments Fall Risk Screening 11/20/2007 Procedures Procedure Name Priority Date/Time Associated Comments Diagnosis BETA HYDROXYBUTYRATE Routine 11/16/2021 8:25 Resu lts for this EDT procedure are i n the results section. INSULIN Routine 11/16/2021 8:25 Results for this EDT procedure are i n the results section. from Last 3 Months Results BETA HYDROXYBUTYRATE (11/16/2021 8:25 EDT) Pathologist Sig nature Beta Hydroxybutyrate 0.2 <0.4 mmol/L [facility] Specimen Blood - Venous blood (substance) Performing Organization Address [facility]/ZIP Code Phon e Number [facility] [address] [place] [address] SERVICES INSULIN (11/16/2021 8:25 EDT) Pathologist Sig nature Insulin 12.7 <29.0 uIU/mL [facility] Comment: LABORATORY SERVICES Displayed Reference Range applies to fasting specimens only. Specimen Blood - Venous blood (substance) Performing Organization Address [facility]/ZIP [facility] Phon e Number [facility] [address] [place] [address] SERVICES from Last 3 Months Care Teams Mortgage Funder Relationship Specialty Start Date End Date Pedro Bermudez MD PCP - General 05/30/15
[2022-02-02] MEDS: HYDROmorphone 2 MG/ML SYR 1 MG IVP (16:29)
[2022-02-02] MEDS: Normal Saline Flush 10 ML SYR IVP (16:30)
[2022-02-02] MEDS: HYDROmorphone 2 MG/ML SYR 0.5 MG IVP (19:35)
[2022-02-03] MEDS: HYDROmorphone 2 MG/ML SYR 0.5 MG IVP ×4 (01:47→12:33)
--- NOTE | 2022-02-03 01:57 | NUR.NOTE ---
Medicated for pain with PRN 0.5mg IV Dilaudid Patient is awake, not able to hear patient as his voice level is so low. WIll re-assess patient comfort level in ~ 30 minutes.
[2022-02-03] MEDS: ACETAMINOPHEN 1,000 MG/100 ML BTL 400 MG IVPB ×3 (08:23→19:55)
[2022-02-03] MEDS: Normal Saline Flush 10 ML SYR IVP ×2 (08:24→12:34)
--- NOTE | 2022-02-03 14:06 | W.PM.PROGNOT ---
Date of Service Date of service: 02/03/22 Time of Service: 14:06 Assessment and Plan Assessment and plan (1) Comfort measures only status: Status: Acute Assessment and plan: routine comfort care orders. no labs, no vitals dilaudid for pain. regular diet as tolerated. PT when pain better managed. discussed with DR White. Subjective Subjective Patient reports: no new complaints, still having pain and tolerating liquids well (needs to be fed); denies shortness of breath Exam Const General: cooperative and no acute distress Orientation: alert and awake HENNC Head: normal to inspection Ears: hearing grossly normal bilaterally General nose exam: external nose normal Face and sinus: normal facial exam Mouth: oral mucosae normal Eyes General: appearance normal, both eyes and all related structures Eyelids: eyelids normal Pupils: PERRL EOM: EOM intact bilaterally Neck Neck: normal visual inspection Lymphatic: no lymphadenopathy noted Chest Chest: normal inspection of the chest Resp Effort & Inspection: normal respiratory effort and not labored Cardio Rate: regular rate Rhythm: regular rhythm GI Inspection: normal to inspection Palpation: soft, no masses and nontender Auscultation: hypoactive bowel sounds Back/Spine/Pelvis Back: no CVA tenderness Skin General skin exam: no rashes or lesions noted Neuro General: other (can follow some commands) Motor: other (rigid extremities at baseline) Sensory Exam: no sensory deficits noted Extrem General: normal to inspection and full ROM Other: No significant pain with range of motion of bilateral upper or lower extremities. Psych Appearance: grossly normal Mental Status: mental status grossly normal Speech and Movement: speech and movement normal Affect: normal affect Thought Process: normal Objective Last Vital Signs Temp 36.8 C 02/02/22 09:41 Pulse 98 H 02/02/22 14:31 Resp 23 02/02/22 14:40 BP 143/92 H 02/02/22 14:31 Pulse Ox 95 02/02/22 14:40 Laboratory Results - last 24 hr 02/02/22 02/02/22 14:00 14:15 Troponin I 448 H* Urine Color Yellow Urine Clarity Cloudy Urine pH 6.0 Ur Specific Brawley 1.025 Urine Protein 30 H Urine Ketones Negative Urine Blood Large H Urine Nitrite Negative Urine Bilirubin Negative Urine Urobilinogen 0.2 Ur Leukocyte Esterase Negative Urine RBC >50 H Urine WBC Not Applicable Ur Epithelial Cells Not Applicable Urine Crystals Not Applicable Urine Bacteria Not Applicable Urine Mucus Not Applicable Ur Culture Indicated? No Urine Glucose Negative
[2022-02-03] MEDS: HYDROmorphone 50 MG in Normal Saline 245 ML IV (14:50)
--- NOTE | 2022-02-03 15:48 | CHAPLAIN ---
Oliver has Parkinsons and his cared for at home by his step son and daughter in law. His , who has dementia, lives there as well and there are 24/7 caregivers in the house for her. A caregiver heard Oliver fall last night around midnight and he was brought to the ED. He has DNR/DNI orders, and his daughter in law, who is Oliver's agent for medical decisions, said he would not want to be transferred or have surgery. He is on comfort measures now. Since his fall, Oliver is less mobile, and seems weaker, his family said. When asked direct questions, he sometimes responds with a word or two. Oliver is [employer] and indicated he would like a wet pan operator to visit. I [facility] a [facility] for Fr. Mari [facility]. Today is Fr. Mari's day off, so he may be here to visit tomorrow. Oliver will have a palliative care consult, and possibly be discharged on hospice.
[2022-02-03] MEDS: Carbidopa 25/Levodopa 100 TAB PO ×2 (16:05→19:55)
--- NOTE | 2022-02-03 18:07 | INITIAL_ITS ---
- If Service Date Differs Date of service: 02/03/22 Time of Service: 18:07 Care Management Initial Assess REASON FOR HOSPITALIZATION:: multiple trauma PAST MEDICAL HISTORY/PAST SURGICAL HISTORY:: All Active Problems. Comfort measures only status (Acute). Renal hemorrhage, right (Acute). Liver laceration (Acute). Spleen laceration (Acute). Fall at home (Acute). Elevated troponin (Acute). Bleeding external hemorrhoids (Acute). Hypoglycemia (Acute). Cervical radiculopathy (Acute). POLST (Physician Orders for Life-Sustaining Treatment) (Acute). Nephrolithiasis (Acute 03/04/16). non obstructing - on abd/pelvic CT [id number]:asymptomatic. : renal U/S: neprholithiasis/ stable cysts. Low back pain (Acute). Hearing loss (Acute). Parkinsonism (Acute). Peripheral neuropathy (Chronic). Hypoglycemia (Acute 04/24/12). 06/2021- recurrent. Actinic keratosis (Acute 05/04/11). Drop attack (Acute 06/25/13). : negative carotid U/S- normal EEG - normal brain MRI. normal Holter Monitor. LS MRI: no spinal stenosis (). Normal SPEP. Medical History. BPH (benign prostatic hyperplasia). CKD (chronic kidney disease), stage III (02/19/16). [facility] 04-30-2016: / [place] 6 months. 2020- cr 1.6. DNI (do not intubate). DNR (do not resuscitate). Essential hypertension (04/24/13). Gilbert syndrome. Hyperlipidemia. Obstructive sleep apnea (02/19/16). sleep study . : pt no longer using CPAP. Park inson's disease. Paroxysmal atrial fibrillation (02/19/16). on chronic anticoagulation PREVIOUS FUNCTIONAL STATUS/SOCIAL/FAMILY SUPPORTS:: Oliver lives in [facility] with his , Ara. They have 24/7 caregivers for Ara, due to her advanced dementia. Their son and daughter in law, Clare, live nearby and are very supportive. Oliver has Parkinson's disease, and requires support with ADL's. CURRENT FUNCTIONAL STATUS:: Oliver was lying in bed when CM met with him. He was not able to speak clearly, but did state that he is not in pain, and when asked if there is anything he needed, he reported that he needed lunch. CM informed the clinical coordinator, who ordered him a lunch tray. His pain was not well controlled, therefore he was placed on a morphine drip. CM met with him and his daughter in law later, and Oliver appeared more comfortable. Clare stated that the plan will be for Oliver to return home to the care of the current caregivers who help with Ara. Palliative Care was consulted to discuss Hospice at home. CM will continue to follow. ADVANCE DIRECTIVES:: COLST form on file. Has patient been provided with info about the portal/API?: Yes Did the patient sign up for the portal?: No CODE STATUS:: DNR/DNI INSURANCE COVERAGE / FINANCIAL ISSUES:: [facility]/ [employer] CURRENT HOME/COMMUNITY SERVICES/EQUIPMENT:: Oliver has 24/7 caregivers at home for his . PRIMARY CARE PHYSICIAN:: Gilbert Mao POTENTIAL DISCHARGE NEEDS:: palliative/hospice support, follow up appointments. PATIENT/FAMILY EDUCATION NEEDS:: Review discharge instructions and limitations, discussion of self care needs including ask me three and goals of care. ANTICIPATED BARRIERS TO DISCHARGE:: None identified. TRANSPORTATION:: via EMS due to mobility PLAN:: Oliver will return home with 24/7 caregivers. He and his daughter in law will meet with palliative care to discuss goals of care, and he may transition home with support from Hospice. He may require additional equipment at home, including a hospital bed. He will follow up with his PCP and discharge plan of care. CM will continue to follow.
[2022-02-04] MEDS: dilTIAZem CD 120 MG CAPCR PO (10:21)
[2022-02-04] MEDS: ACETAMINOPHEN 1,000 MG/100 ML BTL 400 MG IVPB ×3 (10:21→20:04)
[2022-02-04] MEDS: Carbidopa 25/Levodopa 100 TAB PO ×3 (10:23→20:05)
--- NOTE | 2022-02-04 10:38 | W.PALLCONSUL ---
Date of service: 02/04/22 Time of Service: 10:38 History of Present Illness Narrative: Oliver is a 81 yo male with a past medical hx significant for Parkinson's who presented to the ED after having a fall at home and sustaining a right renal cyst rupture which resulted in hemorrhage with fluid seen surrounding the liver and spleen with liver and spleen laceration not excluded.? He also has acute T3 and 4 compression fractures and right 11 and 12 rib fractures.? Right lung notes pleural effusion versus atelectasis or contusion. His family reported that he has been declining overall at home and that he would prefer comfort-focused care. He was sitting up in his hospital bed, alone in the room. He is unable to communicate, he says yes and no, but it is unclear if he is answering appropriately. I spoke with his [id number] and health care agent, Clare, via phone. Clare reports that he has had significant decline over the last couple of months. He is having more difficulty with his speech. He has lost approximately 12 pounds over the last month. His appetite is decreased. His is eating less, his tremors make it difficult for him to eat. He has required assistance with feeding in the hospital. He has been able to feed himself at home with special silverware. He has had several falls over the last month.He has also had several near falls where family/caregivers have been able to intervene before he fell. He has been using a urinal at night at home. He tends to be constipated. He has been incontinent at the hospital. Clare cell # [phone] Assessment and Plan Assessment and plan (1) Parkinsonism: Status: Acute Qualifiers: Parkinsonism type: Parkinson's disease Qualified Code(s): G20 - Parkinson's disease (2) Fall at home: Status: Acute (3) Elevated troponin: Status: Acute (4) Spleen laceration: Status: Acute (5) Liver laceration: Status: Acute (6) Renal hemorrhage, right: Status: Acute (7) Rib fractures: Status: Acute (8) Spinal compression fracture: Status: Acute (9) Discussion about advance care planning held with family member: Status: Acute (10) Encounter for hospice care discussion: Status: Acute (11) DNR (do not resuscitate): (12) DNI (do not intubate): (13) Palliative care patient: Status: Acute Assessment and plan: Oliver is a very pleasant 81 yo man with a past medical history significant for advanced Parkinson's disease who presented to the ED after having a fall at home and sustaining a right renal cyst rupture which resulted in hemorrhage with fluid seen surrounding the liver and spleen with liver and spleen laceration not excluded.? He also has acute T3 and 4 compression fractures and right 11 and 12 rib fractures.? Right lung notes pleural effusion versus atelectasis or contusion. His family reported that he has been declining overall at home and that he would prefer comfort-focused care. He was unable to engage in the discussion. I spoke to his health care agent, Clare, who reinforced that he would prefer comfort-focused care. He has previously established that he is a DNR/DNI and that he would prefer to at home. We discussed hospice care at home and Clare would like him to be admitted. They will need some equipment including a hospital bed. They will need a few days to prepare for him to be discharged home. Of note, his has advanced dementia and has 24/7 caregivers. Clare will discuss with the caregivers to ensure that they will be able to assist with Oliver as well. Referral called to [facility] Wait[facility]/Waiter, TRISTAN Connor. 88 minutes spend reviewing the chart, seeing the patient, coordinating care and documentation. Review of Systems Narrative: unable due to inability to communicate. PFSH All Active Problems (Updated 02/04/22 @ 11:45 by Natividad Barber NP) Palliative care patient (Acute) Encounter for hospice care discussion (Acute) Discussion about advance care planning held with family member (Acute) Spinal compression fracture (Acute) Rib fractures (Acute) Comfort measures only status (Acute) Renal hemorrhage, right (Acute) Liver laceration (Acute) Spleen laceration (Acute) Fall at home (Acute) Elevated troponin (Acute) Bleeding external hemorrhoids (Acute) Hypoglycemia (Acute) Cervical radiculopathy (Acute) POLST (Physician Orders for Life-Sustaining Treatment) (Acute) Nephrolithiasis (Acute 03/04/16) non obstructing - on abd/pelvic CT 7190730:asymptomatic : renal U/S: neprholithiasis/ stable cysts Low back pain (Acute) Hearing loss (Acute) Parkinsonism (Acute) Peripheral neuropathy (Chronic) Hypoglycemia (Acute 04/24/12) 06/2021- recurrent Actinic keratosis (Acute 05/04/11) Drop attack (Acute 06/25/13) : negative carotid U/S- normal EEG - normal brain MRI normal Holter Monitor LS MRI: no spinal stenosis () Normal SPEP Medical History BPH (benign prostatic hyperplasia) CKD (chronic kidney disease), stage III (02/19/16) [facility] 04-30-2016: / [place] 6 months 2020- cr 1.6 DNI (do not intubate) DNR (do not resuscitate) Essential hypertension (04/24/13) Gilbert syndrome Hyperlipidemia Obstructive sleep apnea (02/19/16) sleep study : pt no longer using CPAP Parkinson's disease Paroxysmal atrial fibrillation (02/19/16) on chronic anticoagulation Family History Mother , age 83 Heart disease Father , age 83 Heart disease Social History Smoking/Tobacco Use Status: Never Smoking risk assessment performed?: Yes Alcohol Intake: never Drug use: Never Substance use type: does not use Household members: spouse Housing: house Communication Needs: Hard of Hearing Do you need help understanding health information?: Rarely Pets and animals: No Current gender identity: male What is your relationship status?: Panel score (0-1 are the most socially isolated patients): 1 Do you feel safe at home: Yes Do you feel safe in your relationship?: Yes Exam Narrative Exam Narrative: General: very pleasant, thin, elderly man, sitting up in his hospital bed. He is awake and alert, looking out the window. Unable to engage in conversation. Occasionally says yes or no. HEENT: normocephalic, atraumatic, EOMI, mucous membranes dry. neck: supple, no JVD. Cardiovascular: heart sounds regular, nontachycardic. Respiratory: respirations appear even and unlabored, lung sounds are clear on limited anterior and lateral exam. GI: +BS, abd soft, nondistended, nontender on palpation. Extremities: rigid, lifted left arm at the end of the visit, no edema. Results Last Vital Signs Temp 36.8 C 02/02/22 09:41 Pulse 98 H 02/02/22 14:31 Resp 23 02/02/22 14:40 BP 143/92 H 02/02/22 14:31 Pulse Ox 95 02/02/22 14:40 Labs Result diagrams: 02/02/22 11:06 02/02/22 11:06
[2022-02-04] MEDS: Polyethylene Glycol 3350 17 GM PACKET PO (11:12)
[2022-02-04] MEDS: LORazepam 20 MG/10 ML VIAL IVP ×2 (14:03→20:04)
--- NOTE | 2022-02-04 14:28 | PGE_ITS ---
Date of Service Date of service: 02/04/22 Time of Service: 14:28 Assessment and Plan Assessment and plan (1) Pain: Status: Acute Assessment and plan: Dilaudid drip - titrate to control pain FLOWER BUNCHER OR PICKER - plan to go home on hospice Tuesday or Tue (2) Agitation: Status: Acute Assessment and plan: Lorazepam 1 mg every 3h as needed (3) Parkinsonism: Status: Chronic Assessment and plan: Chronic - continue home meds Qualifiers: Parkinsonism type: Parkinson's disease Qualified Code(s): G20 - Parkinson's disease (4) Fall at home: Status: Acute Assessment and plan: Safety precautions; no ambulation without assistance; fall measures (5) Elevated troponin: Status: Inactive Assessment and plan: With FLOWER BUNCHER OR PICKER orders, we are not trending troponins (6) Spleen laceration: Status: Inactive Assessment and plan: FLOWER BUNCHER OR PICKER - will watch for signs of bleeding - concentrating on comfort (7) Liver laceration: Status: Inactive Assessment and plan: FLOWER BUNCHER OR PICKER will watch for signs of bleeding - concentrating on comfort (8) Renal hemorrhage, right: Status: Acute Assessment and plan: FLOWER BUNCHER OR PICKER will watch for signs of bleeding - concentrating on comfort (9) Rib fractures: Status: Acute Assessment and plan: FLOWER BUNCHER OR PICKER - treating pain; will titrate accordingly. (10) Spinal compression fracture: Status: Acute Assessment and plan: FLOWER BUNCHER [employer] PICKER - treating pain; will titrate accordingly. (11) Discussion about advance care planning held with family member: Status: Resolved (12) Encounter for hospice care discussion: Status: Resolved (13) DNR (do not resuscitate): (14) DNI (do not intubate): (15) Palliative care patient: Status: Acute Subjective Subjective Patient reports: no new complaints Exam Narrative Exam Narrative: General:Thin, elderly man, sitting up in his hospital bed. He is awake and alert, looking out the window. Unable to engage in conversation. Occasionally says yes or no. but not in context to a question. HEENT: normocephalic, atraumatic, EOMI, mucous membranes dry. neck: supple, no JVD. Cardiovascular: heart sounds regular, nontachycardic. Respiratory: respirations appear even and unlabored, lung sounds are clear on limited anterior and lateral exam. GI: +BS, abd soft, nondistended, nontender on palpation. Extremities: rigid, lifted left arm at the end of the visit, no edema. Const General: cooperative and no acute distress Orientation: alert, awake, not oriented to person, not oriented to place, not oriented to time and confused Limitations: altered mental status [facility] Head: normal to inspection Ears: hearing grossly normal bilaterally General nose exam: external nose normal Face and sinus: normal facial exam Mouth: oral mucosae normal Eyes General: appearance normal, both eyes and all related structures Eyelids: eyelids normal Pupils: PERRL EOM: EOM intact bilaterally Neck Neck: normal visual inspection Lymphatic: no lymphadenopathy noted Chest Chest: normal inspection of the chest Resp Effort & Inspection: normal respiratory effort and not labored Cardio Rate: regular rate Rhythm: regular rhythm GI Inspection: normal to inspection Palpation: soft, no masses and nontender Auscultation: hypoactive bowel sounds Back/Spine/Pelvis Back: no CVA tenderness Skin General skin exam: no rashes or lesions noted Neuro Motor: other (rigid extremities at baseline) Sensory Exam: no sensory deficits noted Extrem General: normal to inspection and full ROM Other: No significant pain with range of motion of bilateral upper or lower extremities. Psych Appearance: grossly normal Mental Status: mental status grossly normal Speech and Movement: speech and movement normal Affect: normal affect Thought Process: normal Objective Last Vital Signs Temp 36.8 C 02/02/22 09:41 Pulse 98 H 02/02/22 14:31 Resp 23 02/02/22 14:40 BP 143/92 H 02/02/22 14:31 Pulse Ox 95 02/02/22 14:40 Reviewed Pertinent PMH: Yes
--- NOTE | 2022-02-04 16:56 | CHAPLAIN ---
Yesterday, Oliver responded yes when asked if he'd like the quarry manager to visit. Fr. Mari arrived this morning to offer Oliver anointing of the sick and last rites. Oliver seemed less able to verbalize responses today, or at least I could not understand him well today. He had a visitor, Jefferson, this morning. Plans are being made to discharge Oliver home on hospice care once the equipment has arrived. Ginny daughter in law, Clare, is his agent and she organizes 14/02 care for Ginny's exwife who has dementia. Clare is hoping they will provide care for Oliver as well. Natividad Barber NP, from Palliative Care provided a consult today.
--- NOTE | 2022-02-04 17:26 | CMPROGNOTE_ITS ---
- If Service Date Differs Date of service: 02/04/22 Time of Service: 17:26 Care Management Progress Note S/O: Oliver was lying in bed when CM met with him. He had a visitor present, his neighbor. Oliver had a Palliative Care consult today, and his plan of care was discussed with Clare, his daughter in law, as Oliver is not responding verbally. He was transitioned to a low dose hydromophone infusion to keep him comfortable. MARY ALICE talked to Clare, who stated that she is in the process of arranging 14/02 caregivers and re arranging the home to fit a hospital bed. CM reviewed equipment needs, and she stated that they will require a hospital bed, a commode, a side chair, and a bed pain. CM called [facility], to discuss Oliver's equipment needs, and to determine when Hospice would be available to admit him once he is home. Clare stated that if all equipment was delivered and set up, she will be able to take him home on Tuesday. CM will continue to follow. A: Oliver is a 81 year old male admitted to [facility] on 02/02/22 for multiple trauma. P: Oliver will transition to Hospice at home once his equipment and caregivers are in place. He will transport home via EMS, coordinated by MARY ALICE. He will follow up with Hospice/palliative care at home.
[2022-02-04] MEDS: Docusate Sodium 100 MG/10 ML CUP PO (20:05)
[2022-02-05] MEDS: LORazepam 20 MG/10 ML VIAL IVP ×2 (04:01→23:41)
[2022-02-05] MEDS: dilTIAZem CD 120 MG CAPCR PO (08:36)
[2022-02-05] MEDS: Carbidopa 25/Levodopa 100 TAB PO ×4 (08:36→21:58)
[2022-02-05] MEDS: ACETAMINOPHEN 1,000 MG/100 ML BTL 400 MG IVPB ×2 (08:36→21:58)
--- NOTE | 2022-02-05 09:40 | CMPROGNOTE_ITS ---
- If Service Date Differs Date of service: 02/05/22 Time of Service: 09:40 Care Management Progress Note S/O: Oliver was lying in bed when CM met with him. He was awake, and turned to CM when CM spoke to him, but was not able to meaningfully communicate. CM asked if he is in pain, and he stated no. MARY ALICE called Clare ([phone]) to discuss details of his discharge home. She stated that caregivers will not be available until Tuesday (although she would prefer Tuesday). Per [facility], the equipment being delivered (hospital bed, w/c, commode, bed side table, bed gomez) will likely arrive on Tuesday. MARY ALICE asked that someone from Hospice and/or [facility] communicate the timing of this delivery with Clare directly. Clare asked that Oliver return home earlier in the day, in order for the Hospice admission to happen early afternoon. MARY ALICE scheduled transport for Oliver by [employer] on Tuesday02/07/22 at 11am. MARY ALICE asked that Hospice admit Oliver around noon on the same day. [facility] requested that MARY ALICE call to confirm the time of transport on Tuesday morning. MARY ALICE will continue to follow. A: Oliver is a 81 year old male admitted to [facility] on 02/02/22 for multiple trauma. P: Oliver will transition to Hospice at home once his equipment and caregivers are in place. He will transport home via EMS, coordinated by MARY ALICE. He will follow up with Hospice/palliative care at home.
[2022-02-05 12:56] VITALS: TEMP 38.6
[2022-02-05 12:59] VITALS: TEMP 38.6
[2022-02-05] MEDS: Acetaminophen 650 MG SUPP PR (12:59)
[2022-02-05 13:59] VITALS: TEMP 37
[2022-02-05 17:35] VITALS: TEMP 37
--- NOTE | 2022-02-05 17:37 | PGE_ITS ---
Date of Service Date of service: 02/05/22 Time of Service: 17:37 Assessment and Plan Assessment and plan (1) Pain: Status: Acute Assessment and plan: Dilaudid CADD pump - titrate to control pain - currently at 0.5 mg/h wit what appears to be good pain control. [employer] - plan to go home on hospice, now Tuesday. (2) Agitation: Status: Acute Assessment and plan: Lorazepam 1 mg every 3h as needed, has not received any since 0400 h and appears calm and comfortable - RR 16, occasional pauses lasting < 20 seconds. (3) Parkinsonism: Status: Chronic Assessment and plan: Chronic - continue home meds Qualifiers: Parkinsonism type: Parkinson's disease Qualified Code(s): G20 - Parkinson's disease (4) Fall at home: Status: Acute Assessment and plan: Safety precautions; no ambulation without assistance; fall measures (5) Elevated troponin: Status: Inactive Assessment and plan: With [employer] orders, we are not trending troponins (6) Spleen laceration: Status: Inactive Assessment and plan: [employer] - will watch for signs of bleeding - concentrating on comfort (7) Liver laceration: Status: Inactive Assessment and plan: [employer] will watch for signs of bleeding - concentrating on comfort (8) Renal hemorrhage, right: Status: Acute Assessment and plan: [employer] will watch for signs of bleeding - concentrating on comfort (9) Rib fractures: Status: Acute Assessment and plan: [employer] - treating pain; will titrate accordingly. (10) Spinal compression fracture: Status: Acute Assessment and plan: [employer] - treating pain; will titrate accordingly. (11) Discussion about advance care planning held with family member: Status: Resolved (12) Encounter for hospice care discussion: Status: Resolved (13) DNR (do not resuscitate): (14) DNI (do not intubate): (15) Palliative care patient: Status: Acute Subjective Subjective Patient reports: no new complaints Interval history since last seen: Continues to be on dilaudid CADD pump at 0.5 mg/h, appears comfortable, is sleeping more. Exam Narrative Exam Narrative: General:Oliver is mostly sleeping, RR regular, appears comfortable. HEENT: normocephalic, atraumatic, EOMI, mucous membranes dry. neck: supple, no JVD. Cardiovascular: heart sounds regular, nontachycardic. Respiratory: respirations appear even and unlabored, lung sounds are clear on limited anterior and lateral exam. GI: +BS, abd soft, nondistended, nontender on palpation. Extremities: sleeping, does not wake to voice, no edema. Const General: cooperative and no acute distress Orientation: alert, awake, not oriented to person, not oriented to place, not oriented to time and confused Limitations: altered mental status [facility] Head: normal to inspection Ears: hearing grossly normal bilaterally General nose exam: external nose normal Face and sinus: normal facial exam Mouth: oral mucosae normal Eyes General: appearance normal, both eyes and all related structures Eyelids: eyelids normal Pupils: PERRL EOM: EOM intact bilaterally Neck Neck: normal visual inspection Lymphatic: no lymphadenopathy noted Chest Chest: normal inspection of the chest Resp Effort & Inspection: normal respiratory effort and not labored Cardio Rate: regular rate Rhythm: regular rhythm GI Inspection: normal to inspection Palpation: soft, no masses and nontender Auscultation: hypoactive bowel sounds Back/Spine/Pelvis Back: no CVA tenderness Skin General skin exam: no rashes or lesions noted Neuro Motor: other (rigid extremities at baseline) Sensory Exam: no sensory deficits noted Extrem General: normal to inspection and full ROM Other: No significant pain with range of motion of bilateral upper or lower extremities. Psych Appearance: grossly normal Mental Status: mental status grossly normal Speech and Movement: speech and movement normal Affect: normal affect Thought Process: normal Objective Last Vital Signs Temp 37 C 02/05/22 17:35 Pulse 98 H 02/02/22 14:31 Resp 23 02/02/22 14:40 BP 143/92 H 02/02/22 14:31 Pulse Ox 95 02/02/22 14:40
[2022-02-05 19:18] VITALS: TEMP 37
[2022-02-05] MEDS: Docusate Sodium 100 MG/10 ML CUP PO (21:58)
[2022-02-06] MEDS: ACETAMINOPHEN 1,000 MG/100 ML BTL 400 MG IVPB ×3 (09:39→20:37)
[2022-02-06] MEDS: dilTIAZem CD 120 MG CAPCR PO (09:39)
[2022-02-06] MEDS: Carbidopa 25/Levodopa 100 TAB PO ×2 (09:39→13:36)
--- NOTE | 2022-02-06 09:53 | PGE_ITS ---
Date of Service Date of service: 02/06/22 Time of Service: 09:53 Assessment and Plan Assessment and plan (1) Pain: Status: Acute Assessment and plan: Dilaudid CADD pump - titrate to control pain - currently at 0.5 mg/h with what appears to be good pain control. [employer] - plan to go home on hospice, now Tuesday. Hospice has been notified that he will be leaving here around 11 AM via [facility] to home. They advised they could not get a nurse to the home until 1-2pm and asked for meds to go home with him. I explained we do not send meds home with cornelio and asked they have their hospice provider order whatever meds are needed. Discussed with Dr Meléndez. (2) Agitation: Status: Acute Assessment and plan: Lorazepam 1 mg every 3h as needed, has not received any since last evening and appears calm and comfortable - RR 14-18, occasional pauses lasting < 20 seconds. (3) Parkinsonism: Status: Chronic Assessment and plan: Chronic - continue home meds Qualifiers: Parkinsonism type: Parkinson's disease Qualified Code(s): G20 - Park inson's disease (4) Fall at home: Status: Acute Assessment and plan: Safety precautions; no ambulation without assistance; fall measures (5) Elevated troponin: Status: Inactive Assessment and plan: With [employer] orders, we are not trending troponins (6) Spleen laceration: Status: Inactive Assessment and plan: [employer] - will watch for signs of bleeding - concentrating on comfort (7) Liver laceration: Status: Inactive Assessment and plan: [employer] will watch for signs of bleeding - concentrating on comfort (8) Renal hemorrhage, right: Status: Acute Assessment and plan: [employer] will watch for signs of bleeding - concentrating on comfort (9) Rib fractures: Status: Acute Assessment and plan: [employer] - treating pain; will titrate accordingly. (10) Spinal compression fracture: Status: Acute Assessment and plan: [employer] - treating pain; will titrate accordingly. (11) Discussion about advance care planning held with family member: Status: Resolved (12) Encounter for hospice care discussion: Status: Resolved (13) DNR (do not resuscitate): (14) DNI (do not intubate): (15) Palliative care patient: Status: Acute Subjective Subjective Patient reports: no new complaints Interval history since last seen: Occasionally awake and conversing with the nurse caring for him. He had another fever, tylenol IV was given w good effect. Exam Narrative Exam Narrative: General:Oliver is mostly sleeping, RR regular, appears comfortable. HEENT: normocephalic, atraumatic, EOMI, mucous membranes dry. neck: supple, no JVD. Cardiovascular: heart sounds regular, nontachycardic. Respiratory: respirations appear even and unlabored, lung sounds are clear on limited anterior and lateral exam. GI: +BS, abd soft, nondistended, nontender on palpation. Extremities: sleeping, does not wake to voice, no edema. Const General: cooperative and no acute distress Orientation: alert, awake, not oriented to person, not oriented to place, not oriented to time and confused Limitations: altered mental status HENMT Head: normal to inspection Ears: hearing grossly normal bilaterally General nose exam: external nose normal Face and sinus: normal facial exam Mouth: oral mucosae normal Eyes General: appearance normal, both eyes and all related structures Eyelids: eyelids normal Pupils: PERRL EOM: EOM intact bilaterally Neck Neck: normal visual inspection Lymphatic: no lymphadenopathy noted Chest Chest: normal inspection of the chest Resp Effort & Inspection: normal respiratory effort and not labored Cardio Rate: regular rate Rhythm: regular rhythm GI Inspection: normal to inspection Palpation: soft, no masses and nontender Auscultation: hypoactive bowel sounds Back/Spine/Pelvis Back: no CVA tenderness Skin General skin exam: no rashes or lesions noted Neuro Motor: other (rigid extremities at baseline) Sensory Exam: no sensory deficits noted Extrem General: normal to inspection and full ROM Other: No significant pain with range of motion of bilateral upper or lower extremities. Psych Appearance: grossly normal Mental Status: mental status grossly normal Speech and Movement: speech and movement normal Affect: normal affect Thought Process: normal Objective Last Vital Signs Temp 37 C 02/05/22 19:18 Pulse 98 H 02/02/22 14:31 Resp 23 02/02/22 14:40 BP 143/92 H 02/02/22 14:31 Pulse Ox 95 02/02/22 14:40 Reviewed Pertinent PMH: Yes
[2022-02-06] MEDS: LORazepam 20 MG/10 ML VIAL IVP (22:29)
[2022-02-06] MEDS: Normal Saline Flush 10 ML SYR IVP (22:31)
--- NOTE | 2022-02-07 08:07 | CMPROGNOTE_ITS ---
- If Service Date Differs Date of service: 02/07/22 Time of Service: 08:07 Care Management Progress Note DME through [facility] is delivered, CM confirmed with pts family on 02/06/22. Oliver (Bang) will be discharging home on hospice 02/07/22 at 1230. EMS transport ([facility]) is arranged for 1230. CM confirmed transport with Shant at [facility]. Following discharge, Hospice will meet Oliver at his home at 1pm for same day admit to Hospice. Per rope maker Jerica.
--- NOTE | 2022-02-07 08:46 | W.PM.DS.N ---
Date of service: 02/07/22 Time of Service: 08:46 DS: Diagnosis Discharge Diagnosis (1) Pain: Status: Acute (2) Agitation: Status: Acute (3) Parkinsonism: Status: Chronic (4) Fall at home: Status: Acute (5) Elevated troponin: Status: Inactive (6) Spleen laceration: Status: Inactive (7) Liver laceration: Status: Inactive (8) Renal hemorrhage, right: Status: Acute (9) Rib fractures: Status: Acute (10) Spinal compression fracture: Status: Acute (11) Discussion about advance care planning held with family member: Status: Resolved (12) Encounter for hospice care discussion: Status: Resolved (13) DNR (do not resuscitate): (14) DNI (do not intubate): (15) Palliative care patient: Status: Acute Discharge Plan Disposition Patient Disposition: HOSPICE, HOME Condition: Stable Discharge Details Reason For Visit: Multiple Trauma Admit Date/Time: 02/02/22 14:12 Admit Provider: Jefferson Garcia Attending Provider: Jefferson Garcia Primary Care Provider: Gilbert Mao Hospital Course Hospital Course: Oliver is a 81 year old male patient with a history of who on 02/04/2022 Home Meds and New Rx's Prescriptions: New GenTeal Tears Moderate 0.1-0.3-0.2 % Drops 15 ml OU QID PRN PRNQty: 0 0RF Continued docusate sodium [Colace] 100 mg capsule 100 mg PO TID PRN Qty: 270 3RF polyethylene glycol 3350 [Miralax] 17 gram/dose powder 17 g PO DAILY PRN Qty: 119 2RF Rx Instructions: take 17grams daily in large glass of water daily as needed hydrochlorothiazide 12.5 mg tablet 12.5 mg PO DAILY Qty: 90 4RF Eliquis 5 mg tablet 5 mg PO BID Qty: 180 4RF Hold Instructions: Resume on 01/10/22. hold dosing tonight, restart tomorrow if bleeding stopped carbidopa-levodopa [Sinemet] 25-100 mg tablet 1 tab PO QID Qty: 10 0RF Rx Instructions: not sent 04-27-21/ Dr.Umashankar Antoine with Lutein 1 EACH tablet 1 ea PO DAILY nitroglycerin 0.4 mg tablet, sublingual 0.4 mg SL Q5M MDD 3 tabs PRN (Reason: chest pain) Qty: 30 1RF Rx Instructions: 1 tab every 5 min x 3 doses for chest pain; call 911 if pain continues after 2nd dose (DME) blood-glucose meter Mis See Rx Instructions .MEDSUPPLY Qty: 1 0RF Rx Instructions: check your sugar twice a day (DME) Blood Glucose Test Strip See Rx Instructions .MEDSUPPLY Qty: 50 1RF Rx Instructions: check your blood sugar twice a day atorvastatin 40 mg tablet 40 mg PO DAILY Qty: 90 4RF diltiazem HCl 120 mg capsule,extended release 24hr 120 mg PO DAILY Qty: 90 3RF Rx Instructions: take one capsule daily/ (REPLACES VERAPAMIL) acetaminophen 650 mg suppository 650 mg ME Q6H PRN (Reason: fever, mild pain) Qty: 6 0RF Rx Instructions: Hospice Patient hyoscyamine sulfate 0.125 mg tablet,disintegrating 0.125 - 0.25 mg PO Q4H PRN (Reason: secretions) Qty: 24 0RF Rx Instructions: Hospice Patient haloperidol lactate 2 mg/mL concentrate 1 mg PO Q6H PRN (Reason: agitation) Qty: 15 0RF Rx Instructions: Hospice Patient morphine concentrate 100 mg/5 mL (20 mg/mL) solution 5 - 20 mg PO Q1-4H MDD 5 mL PRN (Reason: moderate to severe pain or shortness of breath) Qty: 30 0RF Rx Instructions: Hospice Patient prochlorperazine maleate 10 mg tablet 10 mg PO Q6H PRN (Reason: nausea and vomiting) Qty: 6 0RF Rx Instructions: Hospice Patient bisacodyl [Dulcolax (bisacodyl)] 10 mg suppository 10 mg ME daily PRN (Reason: constipation) Qty: 2 0RF Rx Instructions: Hospice Patient Insert 1 supp ME Daily PRN constipation (no BM in 3 days) hydrocortisone [Anusol-HC] 2.5 % cream with perineal applicator 1 applic ME QD-BID PRNQty: 30 0RF Discontinued lorazepam 1 mg tablet 1 mg PO Q4H PRN (Reason: anxiety, SANHCEZ or nausea) Qty: 6 5RF Rx Instructions: Hospice Patient hydromorphone 1 mg/mL solution See Rx Instructions subcut Q6H MDD 60mg PRN (Reason: pain) Qty: 10 0RF Rx Instructions: 0.5-2mg/hr with 0.5mg q15min bolus prn breakthru pain subcutaneously every 6 hours PRN; for HOSPICE, CAD Pump (Cartridge) Discharge Instructions Instructions: Pain Management (DC), Hospice Care (GEN) Additional Instructions: A hospice nurse will come to your home this afternoon and admit you to their services. DS: Summary Status at Discharge Mental Status: mental status grossly normal Speech and Movement: speech and movement normal Affect: normal affect Exam Narrative Exam Narrative: General:Oliver is mostly sleeping, RR regular, appears comfortable. Continues to have fevers, IV tylenol does bring it down. HEENT: normocephalic, atraumatic, EOMI, mucous membranes dry. neck: supple, no JVD. Cardiovascular: heart sounds regular, nontachycardic. Respiratory: respirations appear even and unlabored, lung sounds are clear on limited anterior and lateral exam. GI: +BS, abd soft, nondistended, nontender on palpation. Extremities: sleeping, does wake to voice, no edema. Const General: cooperative and no acute distress Orientation: alert, awake, not oriented to person, not oriented to place, not oriented to time and confused Limitations: altered mental status HENMT Head: normal to inspection Ears: hearing grossly normal bilaterally General nose exam: external nose normal Face and sinus: normal facial exam Mouth: oral mucosae normal Eyes General: appearance normal, both eyes and all related structures Eyelids: eyelids normal Pupils: PERRL EOM: EOM intact bilaterally Neck Neck: normal visual inspection Lymphatic: no lymphadenopathy noted Chest Chest: normal inspection of the chest Resp Effort & Inspection: normal respiratory effort and not labored Cardio Rate: regular rate Rhythm: regular rhythm GI Inspection: normal to inspection Palpation: soft, no masses and nontender Auscultation: hypoactive bowel sounds Back/Spine/Pelvis Back: no CVA tenderness Skin General skin exam: no rashes or lesions noted Neuro Motor: other (rigid extremities at baseline) Sensory Exam: no sensory deficits noted Extrem General: normal to inspection and full ROM Other: No significant pain with range of motion of bilateral upper or lower extremities. Psych Appearance: grossly normal Mental Status: mental status grossly normal Speech and Movement: speech and movement normal Affect: normal affect Thought Process: normal DS: Data Vitals/I&O Vitals and I&O: Vital Signs Temperature 37 C 02/05/22 19:18 Temperature Source Temporal Artery Scan 02/02/22 09:41 Pulse 98 H 02/02/22 14:31 Pulse 108 H 02/02/22 14:40 Respiratory Rate 23 02/02/22 14:40 Respiratory Effort Non-Labored 02/02/22 09:52 Respiratory Depth Normal 02/02/22 09:52 Respiratory Pattern Normal 02/02/22 09:52 Blood Pressure 143/92 H 02/02/22 14:31 Blood Pressure Mean 104 02/02/22 14:31 Blood Pressure Position Sitting 02/02/22 09:41 Pulse Oximetry 95 02/02/22 14:40 Oxygen Delivery Method Room Air 02/05/22 07:42 Oxygen Flow Rate 0 02/05/22 07:42 Pain Level 0 02/05/22 19:18 Intake & Output 02/06/22 02/06/22 02/07/22 11:59 23:59 11:59 Intake Total 400 / 1297.625 897.625 / 1297.625 Output Total 850 / 1750 900 / 1750 375 / 375 Balance -450 / -452.375 -2.375 / -452.375 -375 / -375 Intake: IV 100 / 597.625 497.625 / 597.625 Oral 300 / 700 400 / 700 Output: Urine 850 / 1750 900 / 1750 375 / 375 Other: Urine Color Light Afua Yellow Light Afua Urine Appearance Sediment Cloudy Clear Stool Size Smear Stool Characteristics Liquid Brown Black Bloody PFSH All Active Problems Agitation (Acute) Pain (Acute) Palliative care patient (Acute) Spinal compression fracture (Acute) Rib fractures (Acute) Comfort measures only status (Acute) Renal hemorrhage, right (Acute) Fall at home (Acute) Bleeding external hemorrhoids (Acute) Hypoglycemia (Acute) Cervical radiculopathy (Acute) POLST (Physician Orders for Life-Sustaining Treatment) (Acute) Nephrolithiasis (Acute 03/04/16) non obstructing - on abd/pelvic CT [id number]:asymptomatic : renal U/S: neprholithiasis/ stable cysts Low back pain (Acute) Hearing loss (Acute) Parkinsonism (Chronic) Peripheral neuropathy (Chronic) Hypoglycemia (Acute 04/24/12) 06/2021- recurrent Actinic keratosis (Acute 05/04/11) Drop attack (Acute 06/25/13) : negative carotid U/S- normal EEG - normal brain MRI normal Holter Monitor LS MRI: no spinal stenosis () Normal SPEP Medical History BPH (benign prostatic hyperplasia) CKD (chronic kidney disease), stage III (02/19/16) [facility] 04-30-2016: / [facility] 6 months 2020- cr 1.6 DNI (do not intubate) DNR (do not resuscitate) Essential hypertension (04/24/13) Gilbert syndrome Hyperlipidemia Obstructive sleep apnea (02/19/16) sleep study : pt no longer using CPAP Parkinson's disease Paroxysmal atrial fibrillation (02/19/16) on chronic anticoagulation Family History Mother , age 83 Heart disease Father , age 83 Heart disease Social History Smoking/Tobacco Use Status: Never Smoking risk assessment performed?: Yes Alcohol Intake: never Drug use: Never Substance use type: does not use Household members: spouse Housing: house Communication Needs: Hard of Hearing Do you need help understanding health information?: Rarely Pets and animals: No Current gender identity: male What is your relationship status?: Panel score (0-1 are the most socially isolated patients): 1 Do you feel safe at home: Yes Do you feel safe in your relationship?: Yes
[2022-02-07] MEDS: ACETAMINOPHEN 1,000 MG/100 ML BTL 400 MG IVPB ×3 (08:54→20:29)
[2022-02-07] MEDS: LORazepam 20 MG/10 ML VIAL IVP ×2 (09:01→11:53)
--- NOTE | 2022-02-07 09:40 | CMDISCH_ITS ---
- If Service Date Differs Date of service: 02/07/22 Time of Service: 09:40 LACE Index Scoring Tool - Questions: Length of Stay (in days): 4 - 6 Acuity (Admit via E.D.?): Yes Comorbidities: Liver or Renal Disease E.D. Visits: 2 - Answers: Total Score: 14 Risk of Readmission: High Risk Care Management Discharge Reason for Hospitalization: multiple trauma Discharge Plan: Oliver Brizuela) is discharged home with same day admission to [facility] services. EMS will transport. Following discharge, Hospice will meet Oliver at his home at 1pm and provide continuation of care at his residence. Patient/Family Education Needs: Review discharge instuctions, and plan to follow up with community and Hospice providers following discharge. ask me three. Services Needed at Discharge: DME Agency (CM confirmed delivery by [facility]), Home Health Care Services ([facility] Services-1pm admission from home), Transportation (EMS/[facility] 1230)
[2022-02-07] MEDS: Scopolamine 1 MG/3 DAYS PATCH TD (10:01)
[2022-02-07] MEDS: LORazepam 20 MG/10 ML VIAL IV/SC ×5 (12:54→18:12)
[2022-02-07] MEDS: Glycopyrrolate 0.2 MG/1 ML VIAL IVP (14:03)
[2022-02-07] MEDS: HYDROmorphone 50 MG in Normal Saline 245 ML 20 MG IV (15:05)
--- NOTE | 2022-02-07 15:45 | W.PM.PROGNOT ---
Date of Service Date of service: 02/07/22 Time of Service: 16:08 Assessment and Plan Assessment and plan (1) Pain: Status: Acute Assessment and plan: Dilaudid infusion - titrate to control pain Oliver declined rapidly this morning and became unresponsive, tachycardic, febrile, with periods of apnea lasting about 20 seconds, sporatically. Discussion with the family it was agreed that home hospice is cancelled and he will stay here to . We will continue the dilaudid infusion and lorazepam, along with medication for excessive secretions. Discussed with Dr Meléndez. (2) Agitation: Status: Acute Assessment and plan: Lorazepam 1 mg every 1h as needed, halopericol prn (3) Parkinsonism: Status: Chronic Assessment and plan: Discontinued all PO meds. Qualifiers: Parkinsonism type: Parkinson's disease Qualified Code(s): G20 - Parkinson's disease (4) Renal hemorrhage, right: Status: Acute Assessment and plan: SOFTWARE DEVELOPMENT SPECIALIST will watch for signs of bleeding - concentrating on comfort (5) Fall at home: Status: Acute Assessment and plan: Safety precautions; no ambulation without assistance; fall measures (6) Rib fractures: Status: Acute Assessment and plan: SOFTWARE DEVELOPMENT SPECIALIST - treating pain; will titrate accordingly. (7) Spinal compression fracture: Status: Acute Assessment and plan: SOFTWARE DEVELOPMENT SPECIALIST - treating pain; will titrate accordingly. (8) DVT prophylaxis: Status: Acute Assessment and plan: Discontinued - actively dying (9) Discharge planning issues: Status: Acute Assessment and plan: Plans for home hospice cancelled - we will keep Oliver here for comfort measures at the end of life. His family is in agreement with this plan. Subjective Subjective Interval history since last seen: CHALO. Comfortable receiving comfort care medications. unable to answer questions due to noncommunicative status. Exam Narrative Exam Narrative: General: Supine, sleeping, actively dying HEENT: normocephalic, atraumatic, EOMI, mucous membranes dry. neck: supple, no JVD. Cardiovascular: heart sounds regular, tachycardic. Respiratory: respirations, 20 sec apnea periods unlabored GI: +BS, no assessed Extrem Other: No significant pain with range of motion of bilateral upper or lower extremities. Objective Last Vital Signs Temp 37 C 02/05/22 19:18 Pulse 98 H 02/02/22 14:31 Resp 23 02/02/22 14:40 BP 143/92 H 02/02/22 14:31 Pulse Ox 95 02/02/22 14:40
--- NOTE | 2022-02-08 16:39 | W.PM.DDS ---
Date of service: 02/08/22 Time of Service: 16:40 Discharge Sum: Diag Contributing Factors (1) Pain: (2) Agitation: (3) Parkinsonism: (4) Renal hemorrhage, right: (5) Fall at home: (6) Rib fractures: (7) Spinal compression fracture: (8) DVT prophylaxis: (9) Discharge planning issues:
== END 2022-02-07 20:57 | DRG 184 ==
LOC: ER 15:23 → MS 16:07
PROVIDERS: Admitting Provider Family Medicine; Emergency Provider Physician Assistant; PCP Family Medicine; Visit Provider Family Medicine
DX: S22.41XA Multiple fractures of ribs, right side, initial encounter for closed fracture (principal); S22.030A Wedge compression fracture of third thoracic vertebra, initial encounter for closed fracture; S36.113A Laceration of liver, unspecified degree, initial encounter; S36.039A Unspecified laceration of spleen, initial encounter; S22.040A Wedge compression fracture of fourth thoracic vertebra, initial encounter for closed fracture; G89.11 Acute pain due to trauma; G20 Parkinson's disease; I48.0 Paroxysmal atrial fibrillation; I12.9 Hypertensive chronic kidney disease with stage 1 through stage 4 chronic kidney disease, or unspecified chronic kidney disease; E78.5 Hyperlipidemia, unspecified; W19.XXXA Unspecified fall, initial encounter; Z66 Do not resuscitate; R41.82 Altered mental status, unspecified; R74.8 Abnormal levels of other serum enzymes; R50.9 Fever, unspecified; Z79.01 Long term (current) use of anticoagulants; M54.12 Radiculopathy, cervical region; M54.50 Low back pain, unspecified; G62.9 Polyneuropathy, unspecified; N18.30 Chronic kidney disease, stage 3 unspecified; E80.4 Gilbert syndrome; N28.89 Other specified disorders of kidney and ureter; N28.1 Cyst of kidney, acquired; Z51.5 Encounter for palliative care; R45.1 Restlessness and agitation
CPT/HCPCS: 36415; 71250; 80053; 87637; 93005; 96361; 96374; 99285; 70450; 72125; 74176; 81003; 81015; 83735; 84484; 85025; 93010; 99222; 99232; J0131; J1170; J3490